=== PATIENT | female | born 2005 | race Two or more races ===

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

== ENCOUNTER 2023-01-21 00:44 | Emergency (ER) | payer OTHER, SELFPAY ==
[2023-01-21 00:47] VITALS: BP 137/93; PULSE 75; RESP 20; TEMP 36.9; O2SAT 100
--- NOTE | 2023-01-21 01:17 | ED.GENADULT ---
HPI - General Adult General Chief complaint: Dental/Oral Stated complaint: dental pain Time Seen by Provider: 01/21/23 01:10 History of Present Illness HPI narrative: Patient 88-year-old female presents the emergency department with chief complaint of dental pain. The patient reports that she has her lower wisdom teeth coming in and they have partially erupted. The patient reports that she has pain in her lower molar and the wisdom tooth area. Patient reports no purulent drainage denies fever denies trismus the patient has not seen a dentist Related Data Allergies Allergy/AdvReac Type Severity Reaction Status Date / Time amphetamine [From Adderall] Allergy Rash Verified 07/23/22 13:53 dextroamphetamine Allergy Rash Verified 07/23/22 13:53 [From Adderall] Review of Systems Review of Systems: A 10 system review of systems was completed on the patient and is negative except for what is stated in the HPI. Nursing and ancillary documentation was reviewed. PMFSH Past Medical History Medical History Epidermoid cyst of skin of back Social History Social History Smoking packs per day: 0.5 Smoking cigarettes per day: 10.0 Years smoked: 9 Smoking pack-years: 4.50 Smoking status: Current every day smoker Exam Narrative: GENERAL: Well-appearing, well-nourished, and in no acute distress. HEAD: Normocephalic, atraumatic. EYES: PERRLA and EOMI. ENT: Nares clear, no rhinorrhea or epistaxis. Mucous membranes moist. Impacted wisdom tooth present in the left lower molar. No fluctuance no crepitance there is tenderness to palpation in the gums NECK: Supple. CHEST: Clear to auscultation. No respiratory distress. HEART: Regular rate and rhythm. No murmur heard. Normal peripheral pulses. ABDOMEN: Soft, nontender, nondistended, normal active bowel sounds. EXTREMITIES: Normal range of motion. No edema. SKIN: Warm, dry, no rash. NEURO: No focal deficits. Alert and oriented x3. PSYCH: Normal mood and affect. Course Vital Signs Vital signs: Vital Signs Temperature 36.9 C 01/21/23 00:47 Pulse Rate 75 01/21/23 00:47 Respiratory Rate 20 01/21/23 00:47 Blood Pressure 137/93 H 01/21/23 00:47 Pulse Oximetry 100 01/21/23 00:47 Oxygen Delivery Room Air 01/21/23 00:47 Temperature 36.9 C 01/21/23 00:47 Pulse Rate 75 01/21/23 00:47 Respiratory Rate 20 01/21/23 00:47 Blood Pressure 137/93 H 01/21/23 00:47 Pulse Oximetry 100 01/21/23 00:47 Oxygen Delivery Room Air 01/21/23 00:47 Medical Decision Making MDM Narrative Medical decision making narrative: Differential diagnosis includes impacted wisdom tooth, abscess, cellulitis The patient was given a dose of penicillin VK in the emergency department and given a dose of [place] the patient be discharged home on Pen-Vee K and ibuprofen Vital Signs Vital Signs: Vital Signs Temperature 36.9 C 01/21/23 00:47 Pulse Rate 75 01/21/23 00:47 Respiratory Rate 20 01/21/23 00:47 Blood Pressure 137/93 H 01/21/23 00:47 Pulse Oximetry 100 01/21/23 00:47 Oxygen Delivery Room Air 01/21/23 00:47 Temperature 36.9 C 01/21/23 00:47 Pulse Rate 75 01/21/23 00:47 Respiratory Rate 20 01/21/23 00:47 Blood Pressure 137/93 H 01/21/23 00:47 Pulse Oximetry 100 01/21/23 00:47 Oxygen Delivery Room Air 01/21/23 00:47 Discharge Plan Discharge Clinical Impression: Toothache, Dental abscess Patient Disposition: Home, Self-Care Condition: Stable Instructions: Antibiotic Form, Dental Abscess (ED), Toothache (ED) Prescriptions: New ibuprofen 800 mg tablet 800 mg PO TID PRN (Reason: pain) Qty: 30 0RF penicillin V potassium 500 mg tablet 500 mg PO Q8H 10 Days Qty: 30 0RF No Action loratadine 10 mg tablet 10 mg PO DAILY Qty: 30 0RF amoxicillin
[2023-01-21] MEDS: HYDROcodone/acetaminophen (*CRX) 5-325 MG TABLET 1 TAB PO (02:08)
[2023-01-21] MEDS: PENICILLIN V POTASSIUM 250 MG TABLET 500 MG PO (02:09)
[2023-01-21 02:12] VITALS: BP 135/85; PULSE 72; RESP 16; O2SAT 100
== END 2023-01-21 02:15 | disposition home or self-care (01) ==
PROVIDERS: Emergency Provider Emergency Medicine; PCP Pediatrics
DX: K04.7 Periapical abscess without sinus (principal); F17.210 Nicotine dependence, cigarettes, uncomplicated
CPT/HCPCS: 99283; A9270

== ENCOUNTER 2023-07-01 18:34 | Emergency (ER) | payer OTHER, SELFPAY ==
[2023-07-01 18:41] VITALS: BP 125/64; PULSE 86; RESP 16; TEMP 36.7; O2SAT 100
--- NOTE | 2023-07-01 18:42 | ED.GENADULT ---
HPI - General Adult General Chief complaint: Upper Respiratory Infection Stated complaint: Right Ear Pain Source: patient, RN notes reviewed and old records reviewed Mode of arrival: ambulatory Limitations: no limitations History of Present Illness HPI narrative: 17-year-old female presents to [facility] with complaints of right ear pain and sore throat this started approximately 5 days ago. Patient taking [id number] medications without relief. Patient states was seen here recently and diagnosed with otitis externa. Related Data Allergies Allergy/AdvReac Type Severity Reaction Status Date / Time amphetamine [From Adderall] Allergy Rash Verified 07/23/22 13:53 dextroamphetamine Allergy Rash Verified 07/23/22 13:53 [From Adderall] Review of Systems Constitutional: Constitutional: Reports no additional constitutional complaints, Denies body ache(s), Denies chills, Denies fatigue, Denies fever(s) and Denies headache(s) Eyes: Eyes: Reports no additional eye complaints and Denies blurry vision ENT: Reports system reviewed and no additional complaints, except as documented, Denies vertigo, Denies dizziness, Denies ear discharge, Reports otalgia, Denies facial pain, Denies headache(s), Denies nasal congestion, Denies nasal discharge, Denies sinus pain, Denies sinus pressure and Reports sore throat Cardiovascular: Cardiovascular: Reports no additional cardiovascular complaints, Denies chest pain, Denies chest pain at rest, Denies rapid heart rate and Denies dyspnea Respiratory: Respiratory: Reports no additional respiratory complaints, Denies chest congestion, Denies cough, Denies pain on inspiration, Denies pain with cough and Denies dyspnea Gastrointestinal: Gastrointestinal: Denies abdominal pain, Denies diarrhea, Denies nausea and Denies vomiting Integumentary/Breasts: Skin/Breast: Denies rash Neurologic: Reports system reviewed and no additional complaints, except as documented, Denies vertigo, Denies dizziness and Denies headache(s) Endocrine: Endocrine: Denies fatigue PMF Past Medical History Medical History Epidermoid cyst of skin of back Social History Social History Smoking packs per day: 0.5 Smoking cigarettes per day: 10.0 Years smoked: 9 Smoking pack-years: 4.50 Smoking status: Current every day smoker Comments At the time of my signature, I reviewed and agree with the nursing past medical, surgical, social, and family history. There is no relevant family history pertinent to the patient complaint. Exam Const: General: cooperative, healthy appearing, no acute distress and well nourished Nutritional Appearance: well nourished Orientation/consciousness: patient oriented x3 Limitations: no limitations HENMT: Head: normal to inspection and normocephalic Ears: external ears normal, mastoids normal, Abnormal EAC present erythema on the right, edema on the right and EAC tenderness on the right and TM abnormal bulging on the right and erythematous on the right Face/Nose/Sinus: normal facial exam Face and sinus: normal facial exam Mouth: Yes Normal oral and palatal mucosa present, Yes oropharynx normal and Yes moist mucous membranes Throat: tonsils normal, uvula midline, normal tonsils, no peritonsillar masses, posterior oropharynx abnormal erythema, no postnasal drainage and no uvular edema Eyes: General: appearance normal, both eyes and all related structures Sclera: sclerae normal Pupils: Equal, round and reactive pupils present Resp: Effort & Inspection: normal respiratory effort, able to speak in complete sentences, no audible wheezes, no cough, no respiratory distress and no retractions Skin: General skin exam: normal color and no rashes or lesions noted Neuro: General: patient oriented x3 Cranial nerves: Yes Equal, round and reactive pupils present Psych: Appearance: conner
[2023-07-01 18:51] VITALS: BP 125/64; PULSE 86; RESP 16; TEMP 36.7; O2SAT 100
== END 2023-07-01 18:55 | disposition home or self-care (01) ==
PROVIDERS: Emergency Provider Registered Nurse; PCP Nurse Practitioner Family
DX: H60.311 Diffuse otitis externa, right ear (principal); H66.001 Acute suppurative otitis media without spontaneous rupture of ear drum, right ear; F17.210 Nicotine dependence, cigarettes, uncomplicated
CPT/HCPCS: 99213; G0463

== ENCOUNTER 2023-09-21 02:29 | Emergency (ER) | payer OTHER, SELFPAY ==
--- NOTE | ~2023-09-21 | XR_ITS ---
AP view of the pelvis and AP and lateral views of the right hip Clinical history: Pain Findings: No acute fracture or dislocation is seen. Osseous alignment is anatomic. Bilateral hip and SI joint spaces are preserved. Soft tissues are unremarkable. Impression: No significant abnormality is seen. Reviewed, dictated and finalized at [facility]. Impression: No significant abnormality is seen.
[2023-09-21 02:39] VITALS: BP 143/81; PULSE 97; RESP 15; TEMP 36.5; O2SAT 99
--- NOTE | 2023-09-21 03:28 | ED.LOWEXIN ---
HPI - Extremity Injury (Lower) General Chief Complaint: Extremity Injury, Lower Stated Complaint: sharp abd pain / groin pain Time Seen by Provider: 09/21/23 02:46 Source: patient Limitations: no limitations History of Present Illness HPI Narrative: Patient is a 18-year-old female presents to the emergency department complaining of right hip pain. Patient points to the approximately her ASIS on the right side referring to location of the pain, notes it has been going on for past approximately 2 weeks, is really only present after a long day of work insert to feel toward the end of it when she is on her feet all day and walking around. Patient denies any history is pain in the past. Patient has not been taking anything for the pain. Patient denies any overt injuries. Patient feels like the pain is worse when she stretches and extension fashion or strain to stand up. Patient denies numbness, shooting pain, weakness, urinary incontinence, stool incontinence, urinary discomfort, has no bleeding, vaginal discharge, abdominal pain, nausea, vomiting, back pain. Related Data Allergies Allergy/AdvReac Type Severity Reaction Status Date / Time amphetamine [From Adderall] Allergy Rash Verified 07/23/22 13:53 dextroamphetamine Allergy Rash Verified 07/23/22 13:53 [From Adderall] Review of Systems Review of Systems: A 10 system review of systems was completed on the patient and is negative except for what is stated in the HPI. Nursing and ancillary documentation was reviewed. [facility] Past Medical History Medical History Epidermoid cyst of skin of back Social History Social History Smoking packs per day: 0.5 Smoking cigarettes per day: 10.0 Years smoked: 9 Smoking pack-years: 4.50 Smoking status: Current every day smoker Comments At time of signature, I have reviewed and agree with nursing past medical, surgical, social and family history unless otherwise noted. Please see the nursing chart for further information. There is no relevant family history pertinent to the presenting complaint. Exam Narrative: CONST: No acute distress. Well nourished. HENMT: Head is normocephalic and atraumatic. Moist mucous membranes. No posterior oropharynx erythema. EYES: No conjunctival icterus, injection, or pallor. PERRL. NECK: No meningeal signs. RESP: Able to speak in full sentences. Normal respiratory effort. CTAB. CARDIO: Regular rate. Regular rhythm. 2+ DP and radial pulses bilaterally. GI: Nondistended. No tenderness to palpation. Soft. : No CVA tenderness to palpation. SKIN: No rashes or lesions noted on exposed skin. NEURO: Oriented x3. Moves all extremities. EXTREM/MSK/BACK: No pedal edema. Mild tenderness to palpation of the right ASIS without any palpable deformities. Patient is uncomfortable with resistance to hip flexion it appears to be most localized to the tendinous insertion sites of the quadriceps muscles. No overlying skin changes. Compartments are soft. No palpable masses or hernias or lymphadenopathy in the right inguinal region and right proximal leg. Stable gait with active range of motion intact. No midline vertebral tenderness to palpation or step-offs. PSYCH: Normal affect. Course Vital Signs Vital signs: Vital Signs Temperature 97.7 F 09/21/23 02:39 Pulse Rate 97 09/21/23 02:39 Respiratory Rate 15 09/21/23 02:39 Blood Pressure 143/81 H 09/21/23 02:39 Pulse Oximetry 99 09/21/23 02:39 Oxygen Delivery Room Air 09/21/23 02:39 Temperature 97.7 F 09/21/23 02:39 Pulse Rate 82 09/21/23 04:12 Respiratory Rate 16 09/21/23 04:12 Blood Pressure 131/90 09/21/23 04:12 Pulse Oximetry 98 09/21/23 04:12 Oxygen Delivery Room Air 09/21/23 02:39 MDM - Extremity Injury (Lower) MDM Narrative Medical decision making narrative: Patient pres
[2023-09-21 03:44] LABS: Basophils Percent Auto 0.4 % (0.2-1.2); Eosinophils Absolute Auto 0.2 K/mm3 (0-0.3); Eosinophils Percent Auto 1.8 % (0-4.4); Hematocrit 39.1 % (37.0-47.0); Immature Granulocyte Absolute 0.02 K/mm3 (0.00-0.031); Immature Granulocyte Percent A 0.2 % (0-0.5); Lymphocytes Absolute Auto 4.28 K/mm3 (0.9-3.2); Lymphocytes Percent Auto 43.6 % (18.3-44.2); Mean Corpuscular HGB Conc 33.2 g/dl (32-36); Mean Corpuscular Hemoglobin 31.2 pg (26-34); Mean Corpuscular Volume 93.8 fl (80-100); Monocytes Absolute Auto 0.6 K/mm3 (0.1-0.6); Monocytes Percent Auto 5.7 % (2.6-8.5); Neutrophils Absolute Auto 4.7 K/mm3 (1.3-6.7); Neutrophils Percent Auto 48.3 % (45.5-73.1); Platelet Count Result 277 k/mm3 (150-375); Red Blood Count 4.17 M/mm3 (4.2-5.4); Red Cell Distribution Width 12.9 % (11.5-14.5); White Blood Count 9.8 K/mm3 (4.5-10.0)
[2023-09-21 03:46] LABS: Appearance Urine Clear (Clear); Bilirubin Urine Negative (Negative); Blood Urine Negative (Negative); Color Urine Yellow (Yellow); Glucose Urine UA Negative (Negative); Ketones Urine Negative (Negative); Leukocyte Esterase Ur Negative LEU/UL (Negative); Nitrate Urine Negative (Negative); Protein Urine Negative (Negative); Specific Grav Ur 1.029 (1.001-1.035)
[2023-09-21 03:47] LABS: Add Urine Microscopic? NO
[2023-09-21] MEDS: KETOROLAC 15 MG/ML VIAL (*BKC) IV PUSH (03:49)
[2023-09-21] MEDS: CYCLOBENZAPRINE HCL 10 MG TABLET PO (03:49)
[2023-09-21 03:55] VITALS: BP 120/75; PULSE 83; RESP 16; O2SAT 100
[2023-09-21 03:55] LABS: Lactic Acid Reflex 0.5 mmol/L (0.7-2.0)
[2023-09-21 03:59] LABS: Alanine Aminotransferase 20 U/L (6-35); Albumin Level 4.5 g/dL (3.5-5.1); Alkaline Phosphatase 69 U/L (38-126); Anion Gap 6 mmol/L (4-12); Aspartate Amino Transferase 24 U/L (14-36); Bilirubin,Total 0.3 mg/dL (0.2-1.3); Blood Urea Nitrogen 19 mg/dL (7-17); CRP < 0.5 mg/dL (<1.0); Carbon Dioxide 28 mmol/L (22-30); Chloride 106 mmol/L (98-107); Estimated CRCL calculation 103 ml/min; Estimated Glomerular Filt Rate > 60; Glucose 98 mg/dL (65-110); Sodium 140 mmol/L (137-145)
[2023-09-21 04:12] VITALS: BP 131/90; PULSE 82; RESP 16; O2SAT 98
== END 2023-09-21 04:14 | disposition home or self-care (01) ==
PROVIDERS: Emergency Provider Student in an Organized Health Care Education/Training Program; PCP Nurse Practitioner Family
DX: S76.011A Strain of muscle, fascia and tendon of right hip, initial encounter (principal); F17.210 Nicotine dependence, cigarettes, uncomplicated; X58.XXXA Exposure to other specified factors, initial encounter
CPT/HCPCS: 36415; 73502; 80053; 81003; 81025; 83605; 85025; 86140; 96374; 99284; A9270; J1885

== ENCOUNTER 2023-11-11 17:33 | Emergency (ER) | payer BC, SELFPAY ==
--- NOTE | ~2023-11-11 | CT_ITS ---
CT abdomen pelvis w con Ordering provider: Paul Gonzales APRN History: 18 years Female with . RLQ pain . Comparison: None. Technique: CT abdomen and pelvis with IV and without oral contrast. Automated exposure control and it erative reconstruction technique were employed. The dose-length product was 949.94 mGy-cm. 100 ML Omn ipaque 350 was given IV. Findings: VISUALIZED LOWER CHEST: Normal. UPPER ABDOMINAL ORGANS: Liver: Normal. Gallbladder: Contracted. Spleen: Normal. Stomach/duodenum: Normal. Pancreas: Normal. Adrenals: Normal. Kidneys: Normal. PELVIC ORGANS: The bladder is normal. Uterus: Normal. BOWEL AND MESENTERY: Colon: No evidence of diverticulitis. Normal appendix. Small Bowel: Normal. No obstruction. Peritoneum/mesentery: No free air or free fluid. No mesenteric lymphadenopathy. RETROPERITONEUM: Normal aorta. No retroperitoneal lymphadenopathy. MUSCULOSKELETAL: Superficial soft tissues: The superficial soft tissues are normal. Bones: Normal spine. IMPRESSION: 1. No evidence of appendicitis, diverticulitis or intestinal obstruction. No renal stones. Reviewed, dictated and finalized at location [facility]. IMPRESSION: 1. No evidence of appendicitis, diverticulitis or intestinal obstruction. No r enal stones.
--- NOTE | 2023-11-11 17:34 | ED.ABDPAIN ---
HPI - Abdominal Pain General Chief Complaint: Abdominal Pain <Paul Gonzales APRN - Last Filed: 11/11/23 17:35> Stated Complaint: right abd pain <Paul Gonzales APRN - Last Filed: 11/11/23 17:35> Time Seen by Provider: 11/11/23 19:30 <Paul Gonzales APRN - Last Filed: 11/11/23 17:35> Focused HPI: 18-year-old female no medical problems presents to the emergency room for evaluation of right lower quadrant pain it has been present for 2 months. Of pain is associated with occasional dysuria, urinary frequency and urgency. States pain radiates into her right thigh and around into her back. GENERAL: Well-appearing, well-nourished, and in no acute distress. HEAD: Normocephalic, atraumatic. CHEST: Clear to auscultation. No respiratory distress. HEART: Regular rate and rhythm. NEURO: Alert and oriented x3. Patient screened in triage and initial orders placed. Additional care and disposition to be based upon diagnostic testing and treatment. <Paul Gonzales APRN - Last Filed: 11/11/23 17:35> History of Present Illness HPI narrative: patient is a 18-year-old female who presents emergency department with chief complaint of right hip pain. Patient reports that she has had some discomfort when urinates is concerned she may have UTI patient denies fever reports that the pain is worse with ambulation improves rest. <Drew Ferro MD - Last Filed: 11/11/23 21:50> Related Data Allergies/Adverse Reactions: Allergies Allergy/AdvReac Type Severity Reaction Status Date / Time amphetamine [From Adderall] Allergy Rash Verified 11/11/23 17:33 dextroamphetamine Allergy Rash Verified 11/11/23 17:33 [From Adderall] <Paul Gonzales APRN - Last Filed: 11/11/23 17:35> Review of Systems Review of Systems: A 10 system review of systems was completed on the patient and is negative except for what is stated in the HPI. Nursing and ancillary documentation was reviewed. <Drew Ferro MD - Last Filed: 11/11/23 21:50> PMFSH Past Medical History Medical History: Medical History Epidermoid cyst of skin of back <Paul Gonzales APRN - Last Filed: 11/11/23 17:35> Social History Social History: Social History Smoking packs per day: 0.5 Smoking cigarettes per day: 10.0 Years smoked: 9 Smoking pack-years: 4.50 Smoking status: Current every day smoker <Paul Gonzales APRN - Last Filed: 11/11/23 17:35> Exam Narrative: GENERAL: Well-appearing, well-nourished, and in no acute distress. HEAD: Normocephalic, atraumatic. EYES: PERRLA and EOMI. ENT: Nares clear, no rhinorrhea or epistaxis. Mucous membranes moist. NECK: Supple. CHEST: Clear to auscultation. No respiratory distress. HEART: Regular rate and rhythm. No murmur heard. Normal peripheral pulses. ABDOMEN: Soft, nontender, nondistended, normal active bowel sounds. EXTREMITIES: Normal range of motion. No edema. SKIN: Warm, dry, no rash. NEURO: No focal deficits. Alert and oriented x3. PSYCH: Normal mood and affect. <Drew Ferro MD - Last Filed: 11/11/23 21:50> Course Vital Signs Vital signs: Vital Signs Temperature 36.3 C L 11/11/23 18:12 Pulse Rate 90 11/11/23 18:12 Respiratory Rate 20 11/11/23 18:12 Blood Pressure 120/66 11/11/23 18:12 Pulse Oximetry 100 11/11/23 18:12 Oxygen Delivery Room Air 11/11/23 18:12 Temperature 36.3 C L 11/11/23 18:12 Pulse Rate 80 11/11/23 21:13 Respiratory Rate 16 11/11/23 21:13 Blood Pressure 121/67 11/11/23 21:13 Pulse Oximetry 100 11/11/23 21:13 Oxygen Delivery Room Air 11/11/23 18:12 <Paul Gonzales APRN - Last Filed: 11/11/23 17:35> Vital Signs Temperature 36.3 C L 11/11/23 18:12 Pulse Rate 90 11/11/23 18:12 Respiratory Rate 20
[2023-11-11 18:12] VITALS: BP 120/66; PULSE 90; RESP 20; TEMP 36.3; O2SAT 100
[2023-11-11 18:20] LABS: Appearance Urine Clear (Clear); Bilirubin Urine Negative (Negative); Blood Urine Negative (Negative); Color Urine Yellow (Yellow); Glucose Urine UA Negative (Negative); Ketones Urine Negative (Negative); Leukocyte Esterase Ur Negative LEU/UL (Negative); Nitrate Urine Negative (Negative); Protein Urine Negative (Negative); Specific Grav Ur 1.017 (1.001-1.035); Urobilinogen Urine 0.2 mg/dL (<2.0); pH Urine 7.5 (5.0-9.0)
[2023-11-11 18:33] LABS: Add Urine Microscopic? NO
[2023-11-11 18:56] LABS: Basophils Percent Auto 0.5 % (0.2-1.2); Eosinophils Absolute Auto 0.2 K/mm3 (0-0.3); Hematocrit 41.1 % (37.0-47.0); Hemoglobin 13.8 g/dL (12.0-15.0); Immature Granulocyte Absolute 0.01 K/mm3 (0.00-0.031); Immature Granulocyte Percent A 0.1 % (0-0.5); Lymphocytes Absolute Auto 2.72 K/mm3 (0.9-3.2); Lymphocytes Percent Auto 35.9 % (18.3-44.2); Mean Corpuscular HGB Conc 33.6 g/dl (32-36); Mean Corpuscular Hemoglobin 31.8 pg (26-34); Mean Corpuscular Volume 94.7 fl (80-100); Mean Platelet Volume 8.9 fl (7.4-10.4); Monocytes Absolute Auto 0.5 K/mm3 (0.1-0.6); Monocytes Percent Auto 5.9 % (2.6-8.5); Neutrophils Absolute Auto 4.2 K/mm3 (1.3-6.7); Neutrophils Percent Auto 55.6 % (45.5-73.1); Platelet Count Result 279 k/mm3 (150-375); Red Blood Count 4.34 M/mm3 (4.2-5.4); Red Cell Distribution Width 12.7 % (11.5-14.5); White Blood Count 7.6 K/mm3 (4.5-10.0)
[2023-11-11 19:07] LABS: Alanine Aminotransferase 21 U/L (6-35); Albumin Level 4.7 g/dL (3.5-5.1); Alkaline Phosphatase 68 U/L (38-126); Anion Gap 9 mmol/L (4-12); Aspartate Amino Transferase 26 U/L (14-36); Bilirubin,Total 0.4 mg/dL (0.2-1.3); Blood Urea Nitrogen 13 mg/dL (7-17); Calcium 9.3 mg/dL (8.4-10.2); Carbon Dioxide 29 mmol/L (22-30); Chloride 100 mmol/L (98-107); Estimated CRCL calculation 102 ml/min; Estimated Glomerular Filt Rate > 60; Glucose 97 mg/dL (65-110); Sodium 138 mmol/L (137-145)
[2023-11-11 21:13] VITALS: BP 121/67; PULSE 80; RESP 16; O2SAT 100
--- NOTE | 2023-11-11 21:14 | PC.NURSE ---
pt holding vape in hand when this RN walked in. this RN told the pt she cannot vape inside the hospital
== END 2023-11-11 21:59 | disposition home or self-care (01) ==
PROVIDERS: Nurse Practitioner Family; Emergency Provider Emergency Medicine; PCP Nurse Practitioner Family
DX: R10.31 Right lower quadrant pain (principal); F17.210 Nicotine dependence, cigarettes, uncomplicated
CPT/HCPCS: 36415; 74177; 80053; 81003; 81025; 85025; 99284; Q9967

== ENCOUNTER 2024-04-14 13:28 | Emergency (ER) | payer BC, SELFPAY ==
[2024-04-14 13:55] VITALS: BP 155/83; PULSE 108; RESP 16; TEMP 37.1; O2SAT 100
--- NOTE | 2024-04-14 14:44 | ED_ITS ---
HPI - URI/Sore Throat General Chief Complaint: Upper Respiratory Infection Stated Complaint: throat Time Seen by Provider: 04/14/24 14:44 Source: patient, RN notes reviewed and old records reviewed Mode of arrival: ambulatory Limitations: no limitations History of Present Illness HPI Narrative: 18-year-old female presents to [facility] complaints sore throat for 3 days. No treatment prior to arrival Related Data Allergies Allergy/AdvReac Type Severity Reaction Status Date / Time amphetamine (From Adderall) Allergy Rash Verified 11/11/23 17:33 dextroamphetamine (From Allergy Rash Verified 11/11/23 17:33 Adderall) Review of Systems Review of Systems: All systems reviewed & are unremarkable except as noted in HPI and below Constitutional: Constitutional: Reports no additional constitutional complaints ENT: Reports as per HPI and Reports sore throat Cardiovascular: Cardiovascular: Reports no additional cardiovascular complaints, Denies chest pain and Denies dyspnea Respiratory: Respiratory: Reports no additional respiratory complaints, Denies chest congestion, Denies cough and Denies dyspnea Musculoskeletal: Musculoskeletal: Reports no additional musculoskeletal complaints Integumentary/Breasts: Skin/Breast: Reports system reviewed and no additional complaints, except as docu PMFSH Past Medical History Medical History Epidermoid cyst of skin of back Social History Social History Smoking packs per day: 0.5 Smoking cigarettes per day: 10.0 Years smoked: 9 Smoking pack-years: 4.50 Smoking status: Current every day smoker Comments At the time of my signature, I reviewed and agree with the nursing past medical, surgical, social, and family history. There is no relevant family history pertinent to the patient complaint. Exam Const: General: cooperative, healthy appearing, comfortable, no acute distress, well developed, alert and well nourished Nutritional Appearance: well nourished Orientation/consciousness: patient oriented x3 Limitations: no limitations HENMT: Head: normal to inspection Ears: hearing grossly normal bilaterally, external ears normal, TM's normal bilaterally, EAC's normal, mastoids normal and no periauricular adenopathy Face/Nose/Sinus: normal facial exam and face symmetric Face and sinus: normal facial exam and face symmetric Mouth: Yes Normal oral and palatal mucosa present, Yes lip normal, Yes tongue normal and Yes moist mucous membranes Throat: posterior oropharynx normal, uvula midline, postnasal drainage and no uvular edema Eyes: General: appearance normal, both eyes and all related structures Neck: Neck: normal visual inspection, full ROM, no lymphadenopathy and no meningeal signs Chest: Chest palpation & inspection: normal inspection of the chest Resp: Effort & Inspection: normal respiratory effort and able to speak in complete sentences Auscultation: clear to auscultation bilaterally, no crackles, no rales, no rhonchi and no wheezes Cardio: Rate: regular rate Skin: General skin exam: normal color and no rashes or lesions noted Neuro: General: patient oriented x3, gait normal, moves all extremities and no meningeal signs Cognition (Neuro): normal cognition Speech: normal speech Gait exam (Neuro): Normal gait present Extrem: General: normal to inspection, full ROM, capillary refill normal and normal gait Psych: Appearance: grossly normal and well kempt Mental Status: mental status grossly normal Speech and movement: Normal speech and movement present and Clear speech present Affect: normal affect Attitude: cooperative Course Course Level of Care: Express Care Visit Vital Signs Vital signs: Vital Signs Temperature 98.8 F 04/14/24 13:55 Pulse Rate 108 H 04/14/24 13:55 Respiratory Rate 16 04/14/24 13:55 Blood Pressure 155/83 H 04/14/24 13:55 Pulse Oximetry 100 04/14/24 13:55 Oxygen Delivery Room Air 04/14/24 13:55 Temperature 98.8 F 04/14/24 13:55 Pulse Rate 108 H 04/14/24 13:55 Respiratory Rate 16 04/14/24 13:55 Blood Pressure 155/83 H 04/14/24 13:55 Pulse Oximetry 100 04/14/24 13:55 Oxygen Delivery Room Air 04/14/24 13:55 Reviewed MDM - URI/Sore Throat MDM Narrative Medical decision making narrative: Patient sitting comfortably in exam room. Nontoxic, vitals stable. Patient presents with 2 day history of sore throat. Flu, COVID, strep were negative. Patient appropriate for outpatient treatment with follow-up Discharge instructions reviewed with patient, as well as provided in writing per nursing staff. The instructions also include specific and strict return/GO TO THE ER as well as f/u information. All questions have been answered, and the patient deny any further questions with discharge and discharge plan. Some parts of this dictation were generated by voice recognition software and may contain typographical and/or grammatical inaccuracies. Differential Diagnosis Differential diagnosis: Likely upper respiratory infection, otitis media, sinusitis, viral infection, bronchitis, influenza and pharyngitis Lab Data Labs: Lab Results 04/14/24 Range/Units 15:05 POC Influenza A Ag Negative (Negative) POC Influenza B Ag Negative (Negative) POC SARS CoV-2 Ag Negative (Negative) POC Grp A Strep Screen Negative (Negative) Reviewed Critical Care Time Critical Care Time Critical Care Time: No Discharge Plan Discharge Clinical Impression: Fluid level behind tympanic membrane of both ears Upper respiratory infection Qualifiers: URI type: unspecified viral URI Qualified Code(s): J06.9 - Acute upper respiratory infection, unspecified Patient Disposition: Home, Self-Care Condition: Stable Instructions: Upper Respiratory Infection (ED), Fluid In The Ear (Serous Otitis Media) (ED) Additional Instructions: Your rapid strep swab was negative today at [facility]. A throat culture will be sent to the laboratory for further testing. If the test is positive, you will receive a phone call within 48 hours and an appropriate antibiotic will be initiated at that time. Your rapid COVID test were negative Your rapid flu test was negative Your symptoms are likely due to a viral illness, which is not treated with antibiotics. Typically viral infections last 7-10 days, can linger for couple of weeks. It is very important to treat your symptoms. Drink plenty of water, Gatorade, Pedialyte, ice pops or Jell-O. -Alternate Tylenol and Motrin per package directions for fever or pain. You can alternate every 4 hours -Antihistamine medication such as Benadryl at night and Zyrtec/Claritin/Makenzie during the day can help improve symptoms. -doing daily nasal irrigations can help relieve pressure your sinuses. Things like a Neti pot -Use Flonase twice a day for 5 days then daily to help reduce the inflammation and dry up your sinuses. -You can also use Mucinex. Be sure to drink plenty of water with this medication at least 8 ounces with every dose and it is important to drink 8 to 1 0 glasses of water per day. Water is a natural decongestant -Eat and drink things that are easy to swallow, like tea or soup, or popsicles. -Oral rinses such as: Salt water gargles and/or may use topical anesthetic (eg. Chloraseptic spray) or lozenges to relieve dryness or throat pain). -Frequent hand washing or hand log snaker is one of the best ways to prevent spread of infection. -Using a vaporizer or humidifier at night will also help thin secretions and help with coughing up phlegm. -Follow up with primary care provider in 7-10 days if condition is not improving - For new or worsening symptoms go directly to the nearest ER Patient Language: Albanian Prescriptions: New fluticasone propionate [Flonase Allergy Relief] 50 mcg/actuation spray,suspens ion 2 spray intranasal DAILY Qty: 16 0RF Rx Instructions: administer into each nostril ibuprofen 600 mg tablet 600 mg PO TID PRN (Reason: fever or pain) Qty: 30 0RF Follow-up/Referrals: [place],Denise Suazo APN [Primary Care Provider] - 2 Weeks ([facility] care follow up ) Stand Alone Forms: Work/School Release IP Time of Disposition: 15:03
[2024-04-14 15:07] LABS: EDCOVIDSCREEN Negative (Negative); EDINFLUASCREEN Negative (Negative); EDINFLUBSCREEN Negative (Negative); EDSTREPNEGPOS1 Negative (Negative)
== END 2024-04-14 15:12 | disposition home or self-care (01) ==
PROVIDERS: Emergency Provider Nurse Practitioner; PCP Nurse Practitioner Family
DX: H73.893 Other specified disorders of tympanic membrane, bilateral (principal); J06.9 Acute upper respiratory infection, unspecified; Z20.822 Contact with and (suspected) exposure to COVID-19; F17.210 Nicotine dependence, cigarettes, uncomplicated
CPT/HCPCS: 87081; 87426; 87804; 87880; 99213; G0463

== ENCOUNTER 2024-07-02 10:41 | Emergency (ER) | payer BC, SELFPAY ==
--- OUTSIDE RECORDS SUMMARY | 2024-07-02 10:44 | XMS_ITS | Referral Summary ---
Author Organization [facility] Address [address] [place] [address] Care Team Providers Care Bargain Table Clerk Name Role Phone Denise Callahan NP Primary Care Provider [phone] Encounters Date Type Department Care Team Description 06/01/2024 10:45 AM HYGIENE TEACHER - 06/01/2024 11:59 PM HYGIENE TEACHER Hospital Encounter [facility] [address] [place] [address] Excessive and frequent menstruation with regular cycle Discharge Disposition: Discharge to home or self care from Last 3 Months Allergies Active Allergy Reactions Criticality Noted Date Comments Dextroamphetamine-Amphetamine Anxiety Low 2022 Medications FLUoxetine (FLUoxetine) 10 mg capsule Take 10 mg by mouth. Active azithromycin (ZITHROMAX) 250 mg tablet Take 1 tablet (250 mg total) by mouth daily. Take first 2 tablets together, then 1 every day until finished. 6 tablet 8 Active benzonatate (TESSALON) 100 mg capsuleIndicati ons:Cough Take 1 capsule (100 mg total) by mouth every 8 (eight) hours. 21 capsule 8 Active ibuprofen (ADVIL,MOTRIN) 600 mg tablet Take 1 tablet (600 mg total) by mouth 3 (three) times a day Take with food. 30 tablet 9 Active diphenhydrAMINE (diphenhydrAMIN E) 25 mg capsule Take 1 tablet/capsule (25 mg total) by mouth every 6 (six) hours as needed for itching 30 capsule 9 Active predniSONE (DELTASONE) 10 mg tablet Take 6 tablets oral daily for 2 days then 4 tablets daily for 2 days then 3 tablets daily for 2 days then 2 tablets daily for 2 days then 1 tablet daily for 2 days then stop. 32 tablet 2 Active cephalexin (KEFLEX) 500 mg capsule Take 1 capsule (500 mg total) by mouth 4 (four) times a day 40 capsule 3 Active neomycin-polymy vera-HC (CORTISPORIN) 3.5-10,000-1 mg/mL-unit/mL-% otic suspension Administer 4 drops into the right ear 3 (three) times a day 10 mL 3 Active Active Problems Problem Noted Date Diagnosed Date Numbness and tingling of hand 06/05/2023 Social History Tobacco Use Types Packs/Day Years Used Date Smoking Tobacco: Every Day Cigarettes Smokeless Tobacco: Never Alcohol Use Standard Drinks/Week Comments Never 0 (1 standard drink = 0.6 oz pur e alcohol) AUDIT-C Answer Date Recorded Q1: How often do you have a drink containing alc ohol? Never 10/22/2019 Average Number of Drinks Not on file 020 Frequency of Binge Drinking Not on file 09/25 Comments No Sex and Gender Information Value Date Recorded Sex Assigned at Not on file Legal Sex Female 5:58 AM HYGIENE TEACHER Gender Identity Female 11/10/2023 7:36 PM CDT Sexual Orientation Something else 11/10/2023 7: 36 PM CDT Last Filed Vital Signs Vital Sign Reading Time Taken Comments Blood Pressure 137/77 07/24/2022 5:32 AM CDT Pulse 83 07/24/2022 5:32 AM CDT Temperature 36.7 C (98.1 F) 07/24/2022 5:32 AM CDT Respiratory Rate 18 07/24/2022 5:32 AM CDT Oxygen Saturation 100% 07/24/2022 5:32 AM CDT Inhaled Oxygen Concentration - - Weight 86.2 kg (190 lb 0.6 oz) 07/24/2022 5:32 A M CDT Height 165.1 cm (5' 5 ) 07/24/2022 5:32 AM CDT Body Mass Index 31.62 07/24/2022 5:32 AM CDT Plan of Treatment Not on file Procedures Procedure Name Priority Date/Time Associated Diagnosis Comments US PELVIS W ENDOVAGINAL Schedule Routine, Read Routine (OP Routine) 06/01/2024 12:12 PM HYGIENE TEACHER Excessive and frequent menstruation with regular cycle from Last 3 Months Results * US Pelvis W Endovaginal (06/01/2024 12:12 PM HYGIENE TEACHER) Anatomical Region Laterality Modality Pelvis N/A Ultrasound 06/05/2024 10:2 6 AM HYGIENE TEACHER Narrative 06/05/2024 10:27 AM HYGIENE TEACHER EXAM DESCRIPTION: US PELVIS W ENDOVAGINAL REASON FOR STUDY: N92.0, excessive and frequent menstruation. TECHNIQUE: Grayscale ultrasound of the pelvic contents was performed with transabdominal and transvaginal transducer. COMPARISON: None. FINDINGS: UTERUS: The uterus is anteverted. The uterus is homogenous in echotexture and measures 7.4 x 4.1 x 3.5 cm. ENDOMETRIUM: The endometrium measures 0.7 cm in thickness. RIGHT OVARY: The right ovary measures 2.6 x 2.2 x 3.6 cm. There is documentation of color Doppler flow in the right ovary. The right ovary appears unremarkable. Several small peripheral follicles. LEFT OVARY: The left ovary measures 1.8 x 3.0 x 3.2 cm. There is documentation of color Doppler flow in the left ovary. The left ovary appears unremarkable. Several small peripheral follicles. PELVIC FLUID: There is no evidence of free fluid in the pelvis. OTHER: No other significant findings. IMPRESSION: No evidence of an acute abnormality. Several small peripheral follicles in the ovaries, polycystic ovarian morphology. Correlate for clinical symptoms of polycystic ovarian syndrome. THIS IS AN ELECTRONICALLY VERIFIED FINAL REPORT 06/05/2024 10:27 AM - Electronically signed by Bola Lyons M.D. CH: GLEN Report ID: [id number] Reading Location: [id number] Procedure Note Bola Lyons Jr., MD - 06/05/2024 EXAM DESCRIPTION: US PELVIS W ENDOVAGINAL REASON FOR STUDY: N92.0, excessive and frequent menstruation. TECHNIQUE: Grayscale ultrasound of the pelvic contents was performed with transabdominal and transvaginal transducer. COMPARISON: None. FINDINGS: UTERUS: The uterus is anteverted. The uterus is homogenous inechotexture and measures 7.4 x 4.1 x 3.5 cm. ENDOMETRIUM: The endometrium measures 0.7 cm in thickness. RIGHT OVARY: The right ovary measures 2.6 x 2.2 x 3.6 cm. There is documentation of color Doppler flow in the right ovary. The right ovary appears unremarkable. Several small peripheral follicles. LEFT OVARY: The left ovary measures 1.8 x 3.0 x 3.2 cm. There is documentation of color Doppler flow in the left ovary. The left ovaryappears unremarkable. Several small peripheral follicles. PELVIC FLUID: There is no evidence of free fluid in the pelvis. OTHER: No other significant findings. IMPRESSION: No evidence of an acute abnormality. Several small peripheral follicles in the ovaries, polycystic ovarian morphology. Correlate for clinical symptoms of polycystic ovariansyndrome. THIS IS AN ELECTRONICALLY VERIFIED FINAL REPORT 06/05/2024 10:27 AM - Electronically signed by Bola Lyons M.D. CH: GLEN Report ID: [id number] Reading Location: [place] [id number] Yenifer Jones NP IM US PROCEDURES Final Resul t from Last 3 Months Insurance [facility] [employer] [facility] MEDICAID [facility] AETNA [place] Care Teams Bargain Table Clerk Relationship Specialty Start Date End Date Callahan, Denise Noyola NP [address] [place] [address] PCP - General Nurse Practitioner 05/27/23
--- OUTSIDE RECORDS SUMMARY | 2024-07-02 10:44 | XMS_ITS | Data Portability ---
[facility] Address [address] [place] [address] Care Team Providers Care Emergency Communications Operator Name Role Phone MANJARREZ DENISE Primary Care Provider Assessment No assessment recorded. Plan of Treatment Reminders Order Date Submit Date Provider Last Modified By Organization Details Last Modified Time Details Appointments None recorded . Lab chlamydi a trachoma tis + neisseri a gonorrho eae + trichomo page vaginali s DNA panel, DEBO+prob e, unspecif ied specimen 2022 023 [facility], [address] [place] [address], [address], 07:14:52 vitamin D, 25-hydro xy, total, serum 2021 022 [facility], [address] [place] [address] 2, [place], [address], 15:07:51 food allergen panel, serum 2021 022 [facility], [address] [place] [address] 2, [place], [address], 16:08:11 C reactive protein, QN, serum or plasma 2021 022 [facility], [address] [facility], [facility] [[email or web address]] 2, [place], [address], 16:08:14 DONI (antinuc lear antibodi es) screen, serum 052021 [facility], [address] [facility], [place], [address], 16:08:12 erythroc yte sediment ation rate by danielergr en method 2021 [facility], [address] [facility], [address], [place], [address], 16:08:13 allergy panel, serum or plasma 2021 [facility], [address] [facility], [address], [place], [address], 16:08:09 TSH, ultra-se nsitive, serum 2021 [facility], [address], [address], [place], [address], 16:08:08 CMP, serum or plasma 2021 [facility], [address], [address], [place], [address], 16:08:05 lipid panel, serum 2021 [facility], [address], [address], [place], [address], 16:08:07 CBC 2021 [facility], [address], [address], [place], [address], 16:08:06 Referral None recorded . Procedures None recorded . Surgeries None recorded . Imaging US, pelvis, transabd ominal + transvag inal 2024 025 [facility], [address] [facility] , [place], [address], 5 12:20:59 electrom yogram + nerve conducti on study 2023 024 [facility]NN Laughlin [facility] Scheduling, [address] [facility] , [place], [address], 4 17:23:08 Medication Orders naproxen 500 mg tablet,d elayed release 2023 024 [id number], [address], [place], [address], 4 12:19:18 Bactrim DS 800 mg-160 mg tablet 2023 025 [id number], [address], [place], [address], 5 10:50:43 naproxen 500 mg tablet,d elayed release 2022 023 [email or web address] #[id number], [address], [place], [address], 4 12:10:02 triamcin olone acetonid e 0.1 % topical cream 2021 022 [email or web address] Not available 3 14:20:13 predniso ne 10 mg tablet 2021 022 [email or web address] Not available 3 14:20:08 Patient TargetsNo targets recorded. Patient Instructions Encounter Date Encounter Id Patient Instructions Last Modified By Organization Details Last Modified Time 09/23/2021 [id number] A healthy lifestyle: care instructions Not available 09/23/2021 14:54:20 Learning About Benefits of Quitting Smoking Not available 09/23/2021 14:54:19 tobacco cessation Not available 09/23/2021 14:54:19 Wash with mild soap such as Dove or Ivory, pat dry and apply thick lotion such as aquaphor, Eucerin, Cera Ve or pure zuniga butter to dry skin. Avoid fragrance or bubble baths. Avoid any possible triggers. Keep skin cool and dry as too much moisture may aggravate skin. Elimination diet may be considered as well as derm referral if rash persists. Go to ER if shortness of breath, throat closing, tongue swelling, drop in blood pressure, nausea or vomiting. Not available 09/23/2021 14:54:24 dwp labs needed, plan pending results Not available 09/23/2021 14:54:40 06/23/2022 [id number] Learning About How to Make Healthy Changes in Your Child's Diet [email or web address] Not available 06/23/2022 14:49:14 A healthy lifestyle: care instructions [email or web address] Not available 06/23/2022 14:49:30 03/22/2023 [id number] A healthy lifestyle: care instructions Not available 03/22/2023 12:59:36 carpal tunnel syndrome: exercises [email or web address] Not available 03/22/2023 13:00:02 Rest- Rest your injured body part. Ice Apply a cold gel pack, bag of ice, or bag of frozen vegetables every 1 to 2 hours, for 15 minutes each time. Put a thin towel between the ice (or other cold object) and your skin. Use the ice (or other cold object) for at least 6 hours after your injury. Some people find it helpful to ice longer, even up to 2 days after their injury. Compression Compression basically means pressure. You want to have slight pressure by having it wrapped in an elastic compression bandage. It's important that you do not use too much pressure and cut off the blood flow to body part. Elevation Elevation means you should keep your injury body part raised up above the level of your heart. Not available 03/22/2023 13:01:31 follow up in 2 months Not available 03/22/2023 13:01:45 05/27/2023 [id number] A healthy lifestyle: care instructions Not available 05/27/2023 12:19:16 carpal tunnel syndrome: exercises Not available 05/27/2023 12:19:16 Quitting Tobacco: Care Instructions Not available 05/27/2023 12:19:16 learning about mood disorders Not available 05/27/2023 12:19:16 Take all antibiotics prescribed to you. If any fever or increase in pain, call/return to office. Not available 05/27/2023 12:31:36 Plan pending imaging results. f/u as needed DWP barriers to care: none Not available 05/27/2023 12:31:46 05/17/2024 [id number] learning about mood disorders [email or web address] Not available 05/17/2024 11:38:42 A healthy lifestyle: care instructions [email or web address] Not available 05/17/2024 11:38:42 Quitting Tobacco: Care Instructions [email or web address] Not available 05/17/2024 11:38:42 heavy menstrual periods: care instructions [email or web address] Not available 05/17/2024 11:38:42 Reason for Referral None Reported. Results Created Date Observation Date Name Description Value Unit Range Abnormal Flag Note LastModifiedBy Organization Detail LastModifiedTime 09/24/19 22 09/24/2021 COMP. METAB OLIC PANEL (14) glucose 80 mg/dL 65-99 Not Available [facility] ([facility]) [address] [place], [address], 09/28/2021 16:08:04 09/24/19 22 09/24/2021 COMP. METAB OLIC PANEL (14) BUN 17 mg/dL 6-20 Not Available [facility] ([facility]) [address] [place], [address], 09/28/2021 16:08:04 09/24/19 22 09/24/2021 COMP. METAB OLIC PANEL (14) creatinine 0.88 mg/dL 0.57-1 .00 Not Available [facility] ([facility]) [address] [place], [address], 09/28/2021 16:08:04 09/24/19 22 09/24/2021 COMP. METAB OLIC PANEL (14) eGFR 98 mL/mi n/1.7 3 >59 Not Available [facility] ([facility]) [address] [place], [address], 09/28/2021 16:08:04 09/24/19 22 09/24/2021 COMP. METAB OLIC PANEL (14) BUN/creatini ne ratio 19 9-23 Not Available [facility] ([facility]) [address] [place], [address], 09/28/2021 16:08:04 09/24/19 22 09/24/2021 COMP. METAB OLIC PANEL (14) sodium 141 mmol/ L 134-14 4 Not Available [facility] ([facility]) [address] [place], [address], 09/28/2021 16:08:04 09/24/19 22 09/24/2021 COMP. METAB OLIC PANEL (14) potassium 3.8 mmol/ L 3.5-5. 2 Not Available [facility] ([facility]) [address] [place], [address], 09/28/2021 16:08:04 09/24/19 22 09/24/2021 COMP. METAB OLIC PANEL (14) chloride 107 mmol/ L 96-106 above high normal Not Available [facility] ([facility]) [address] [facility] [place], [address], 09/28/2021 16:08:04 09/24/19 22 09/24/2021 COMP. METAB OLIC PANEL (14) carbon dioxide, total 22 mmol/ L 20-29 Not Available [facility] ([facility]) [address] [facility] [place], [address], 09/28/2021 16:08:04 09/24/19 22 09/24/2021 COMP. METAB OLIC PANEL (14) calcium 8.9 mg/dL 8.7-10 .2 Not Available [facility] ([facility]) [address] [facility] [place], [address], 09/28/2021 16:08:04 09/24/19 22 09/24/2021 COMP. METAB OLIC PANEL (14) protein, total 6.7 g/dL 6.0-8. 5 Not Available [facility] ([facility]) [address], [place], [address], 09/28/2021 16:08:04 09/24/19 22 09/24/2021 COMP. METAB OLIC PANEL (14) albumin 4.3 g/dL 3.9-5. 0 Not Available [facility] ([facility]) [address], [place], [address], 09/28/2021 16:08:04 09/24/19 22 09/24/2021 COMP. METAB OLIC PANEL (14) globulin, total 2.4 g/dL 1.5-4. 5 Not Available [facility] ([facility]) [address] [place], [address], 09/28/2021 16:08:04 09/24/19 22 09/24/2021 COMP. METAB OLIC PANEL (14) A/G ratio 1.8 1.2-2. 2 Not Available [facility] ([facility]) [address], [place], [address], 09/28/2021 16:08:04 09/24/19 22 09/24/2021 COMP. METAB OLIC PANEL (14) bilirubin, total <0.2 mg/dL 0.0-1. 2 Not Available [facility] ([facility]) [address], [place], [address], 09/28/2021 16:08:04 09/24/19 22 09/24/2021 COMP. METAB OLIC PANEL (14) alkaline phosphatase 61 IU/L 42-106 Not Available [facility]) [address], [place], [address], 09/28/2021 16:08:04 09/24/19 22 09/24/2021 COMP. METAB OLIC PANEL (14) AST (SGOT) 18 IU/L 0-40 Not Available [facility] ([facility]) [address] [place], [address], 09/28/2021 16:08:04 09/24/19 22 09/24/2021 COMP. METAB OLIC PANEL (14) ALT (SGPT) 16 IU/L 0-32 Not Available [facility] ([facility]) [address] [facility], [place], [address], 09/28/2021 16:08:04 09/24/19 22 09/24/2021 CBC, NO DIFFE RENTI AL/PL ATELE T WBC 7.6 x10e3 /uL 3.4-10 .8 Not Available [facility] ([facility]) [address] [facility], [place], [address], 09/28/2021 16:08:06 09/24/19 22 09/24/2021 CBC, NO DIFFE RENTI AL/PL ATELE T RBC 3.95 x10e6 /uL 3.77-5 .28 Not Available [facility] ([facility]) [address] [place], [address], 09/28/2021 16:08:06 09/24/19 22 09/24/2021 CBC, NO DIFFE RENTI AL/PL ATELE T hemoglobin 12.6 g/dL 11.1-1 5.9 Not Available [facility] ([facility]) [address] [place], [address], 09/28/2021 16:08:06 09/24/19 22 09/24/2021 CBC, NO DIFFE RENTI AL/PL ATELE T hematocrit 36.5 % 34.0-4 6.6 Not Available [facility] ([facility]) [address] [place], [address], 09/28/2021 16:08:06 09/24/19 22 09/24/2021 CBC, NO DIFFE RENTI AL/PL ATELE T MCV 92 fL 79-97 Not Available [facility] ([facility]) [address] [place], [address], 09/28/2021 16:08:06 09/24/19 22 09/24/2021 CBC, NO DIFFE RENTI AL/PL ATELE T MCH 31.9 pg 26.6-3 3.0 Not Available [facility] ([facility]) [address] [place], [address], 09/28/2021 16:08:06 09/24/19 22 09/24/2021 CBC, NO DIFFE RENTI AL/PL ATELE T MCHC 34.5 g/dL 31.5-3 5.7 Not Available [facility] ([facility]) [address] [place], [address], 09/28/2021 16:08:06 09/24/19 22 09/24/2021 CBC, NO DIFFE RENTI AL/PL ATELE T RDW 12.4 % 11.7-1 5.4 Not Available [facility] ([facility]) [address] [place], [address], 09/28/2021 16:08:06 09/24/19 22 09/24/2021 CBC, NO DIFFE RENTI AL/PL ATELE T NRBC B[employer] Not Available [facility] ([facility]) [address] [place], [address], 09/28/2021 16:08:06 09/24/19 22 09/24/2021 LIPID PANEL cholesterol, total 144 mg/dL 100-16 9 Not Available [facility] ([facility]) [address] [place], [address], 09/28/2021 16:08:07 09/24/19 22 09/24/2021 LIPID PANEL triglyceride s 52 mg/dL 0-89 Not Available [facility] ([facility]) [address] [facility], [place], [address], 09/28/2021 16:08:07 09/24/19 22 09/24/2021 LIPID PANEL HDL cholesterol 57 mg/dL >39 Not Available [facility] ([facility]) [address] [facility], [place], [address], 09/28/2021 16:08:07 09/24/19 22 09/24/2021 LIPID PANEL VLDL cholesterol nimesh 11 mg/dL 5-40 Not Available [facility] ([facility]) [address] [facility], [place], [address], 09/28/2021 16:08:07 09/24/19 22 09/24/2021 LIPID PANEL LDL chol calc (rust) 76 mg/dL 0-109 Not Available [facility] ([facility]) [address] [place], [address], 09/28/2021 16:08:07 09/24/19 22 09/24/2021 LIPID PANEL comment: B[employer] Not Available [facility] ([facility]) [address] [facility], [place], [address], 09/28/2021 16:08:07 09/24/19 22 09/24/2021 TSH RFX ON ABNOR MAL TO FREE T4 TSH 2.060 uIU/m L 0.450- 4.500 Not Available [facility] ([facility]) [address] [place], [address], 09/28/2021 16:08:08 09/24/19 22 09/23/2021 ALLER GENS, ZONE 8 class description Commen t Level s of Speci fic IgE Class Descr iptio n of Class ----- ----- ----- ----- ----- -- ----- ----- ----- ----- ----- < 0.10 0 Negat zackary 0.10 - 0.31 0/I Equiv ocal/ Low 0.32 - 0.55 I Low 0.56 - 1.40 II Moder ate 1.41 - 3.90 III High 3.91 - 19.00 IV Very High 19.01 - 100.0 0 V Very High >100. 00 Very High Not Available [facility] ([facility]) [address] [place], [address], 09/28/2021 16:08:09 09/24/19 22 09/28/2021 ALLER GENS, ZONE 8 C613-CcB D pteronyssinu s <0.10 kU/L class 0 Not Available [facility] ([facility]) [address] [place], [address], 09/28/2021 16:08:09 09/24/19 22 09/28/2021 ALLER GENS, ZONE 8 F497-PxF D farinae <0.10 kU/L class 0 Not Available [facility] ([facility]) [address] [place], [address], 09/28/2021 16:08:09 09/24/19 22 09/28/2021 ALLER GENS, ZONE 8 S402-IoW CAT dander <0.10 kU/L class 0 Not Available [facility] ([facility]) [address] [place], [address], 09/28/2021 16:08:09 09/24/19 22 09/28/2021 ALLER GENS, ZONE 8 O266-OjR dog dander <0.10 kU/L class 0 Not Available [facility] ([facility]) [address] [place], [address], 09/28/2021 16:08:09 09/24/19 22 09/28/2021 ALLER GENS, ZONE 8 v397-NbF bermuda grass <0.10 kU/L class 0 Not Available [facility] ([facility]) [address] [place], [address], 09/28/2021 16:08:09 09/24/19 22 09/28/2021 ALLER GENS, ZONE 8 v612-CdC bluegrass, zuri <0.10 kU/L class 0 Not Available [facility] ([facility]) [address] [facility] [place], [address], 09/28/2021 16:08:09 09/24/19 22 09/28/2021 ALLER GENS, ZONE 8 r591-OmO balaji grass <0.10 kU/L class 0 Not Available [facility] ([facility]) [address] [facility], [place], [address], 09/28/2021 16:08:09 09/24/19 22 09/28/2021 ALLER GENS, ZONE 8 u499-VtP bahia grass <0.10 kU/L class 0 Not Available [facility] ([facility]) [address] [facility], [place], [address], 09/28/2021 16:08:09 09/24/19 22 09/28/2021 ALLER GENS, ZONE 8 M483-SeD cockroach, palauan 0.12 kU/L class 0/I abnormal Not Available [facility] ([facility]) [address] [facility] [place], [address], 09/28/2021 16:08:09 09/24/19 22 09/28/2021 ALLER GENS, ZONE 8 Y653-LbE penicillium chrysogen <0.10 kU/L class 0 Not Available [facility] ([facility]) [address] [place], [address], 09/28/2021 16:08:09 09/24/19 22 09/28/2021 ALLER GENS, ZONE 8 I923-RsE cladosporium herbarum <0.10 kU/L class 0 Not Available [facility] ([facility]) [address] [place], [address], 09/28/2021 16:08:09 09/24/19 22 09/28/2021 ALLER GENS, ZONE 8 W369-ObC aspergillus fumigatus <0.10 kU/L class 0 Not Available [facility] ([facility]) [address] [facility] [place], [address], 09/28/2021 16:08:09 09/24/19 22 09/28/2021 ALLER GENS, ZONE 8 I631-JmO mucor racemosus <0.10 kU/L class 0 Not Available [facility] ([facility]) [address] [facility], [place], [address], 09/28/2021 16:08:09 09/24/19 22 09/28/2021 ALLER GENS, ZONE 8 X742-OwK alternaria alternata <0.10 kU/L class 0 Not Available [facility] ([facility]) [address] [facility] [place], [address], 09/28/2021 16:08:09 09/24/19 22 09/28/2021 ALLER GENS, ZONE 8 J403-AwL stemphylium herbarum <0.10 kU/L class 0 Not Available [facility] ([facility]) [address] [facility] [place], [address], 09/28/2021 16:08:09 09/24/19 22 09/28/2021 ALLER GENS, ZONE 8 Z072-KzY oak, white <0.10 kU/L class 0 Not Available [facility] ([facility]) [address] [facility] [place], [address], 09/28/2021 16:08:09 09/24/19 22 09/28/2021 ALLER GENS, ZONE 8 L875-ApV elm, palauan <0.10 kU/L class 0 Not Available [facility] ([facility]) [address] [facility] [place], [address], 09/28/2021 16:08:09 09/24/19 22 09/28/2021 ALLER GENS, ZONE 8 J188-NtM maple/box elder <0.10 kU/L class 0 Not Available [facility] ([facility]) [address], [place], [address], 09/28/2021 16:08:09 09/24/19 22 09/28/2021 ALLER GENS, ZONE 8 A005-OeH hazelnut tree <0.10 kU/L class 0 Not Available [facility] ([facility]) [address], [place], [address], 09/28/2021 16:08:09 09/24/19 22 09/28/2021 ALLER GENS, ZONE 8 C012-QtM hickory, white <0.10 kU/L class 0 Not Available [facility] ([facility]) [address], [place], [address], 09/28/2021 16:08:09 09/24/19 22 09/28/2021 ALLER GENS, ZONE 8 E126-RyU maple leaf sycamore <0.10 kU/L class 0 Not Available [facility] ([facility]) [address], [place], [address], 09/28/2021 16:08:09 09/24/19 22 09/28/2021 ALLER GENS, ZONE 8 K983-WgF white mulberry <0.10 kU/L class 0 Not Available [facility] ([facility]) [address], [place], [address], 09/28/2021 16:08:09 09/24/19 22 09/28/2021 ALLER GENS, ZONE 8 Q229-OlL cedar, mountain <0.10 kU/L class 0 Not Available [facility] ([facility]) [address], [place], [address], 09/28/2021 16:08:09 09/24/19 22 09/28/2021 ALLER GENS, ZONE 8 J448-TiE sweet gum <0.10 kU/L class 0 Not Available [facility] ([facility]) [address] [facility] [place], [address], 09/28/2021 16:08:09 09/24/19 22 09/28/2021 ALLER GENS, ZONE 8 Q818-YkM ragweed, short <0.10 kU/L class 0 Not Available [facility] ([facility]) [address] [facility] [place], [address], 09/28/2021 16:08:09 09/24/19 22 09/28/2021 ALLER GENS, ZONE 8 X015-NjR mugwort <0.10 kU/L class 0 Not Available [facility] ([facility]) [address] [facility], [place], [address], 09/28/2021 16:08:09 09/24/19 22 09/28/2021 ALLER GENS, ZONE 8 X306-QtZ plantain, maltese <0.10 kU/L class 0 Not Available [facility] ([facility]) [address] [facility], [place], [address], 09/28/2021 16:08:09 09/24/19 22 09/28/2021 ALLER GENS, ZONE 8 P579-DsQ pigweed, common <0.10 kU/L class 0 Not Available [facility] ([facility]) [address] [facility] [place], [address], 09/28/2021 16:08:09 09/24/19 22 09/28/2021 ALLER GENS, ZONE 8 A636-NpV sheep sorrel 0.17 kU/L class 0/I abnormal Not Available [facility] ([facility]) [address] [facility] [place], [address], 09/28/2021 16:08:09 09/24/19 22 09/28/2021 ALLER GENS, ZONE 8 S496-XjE nettle 0.11 kU/L class 0/I abnormal Not Available [facility] ([facility]) [address] [place], [address], 09/28/2021 16:08:09 09/24/19 22 09/28/2021 FOOD ALLER GY PROFI LE H278-FrH egg white <0.10 kU/L class 0 Not Available [facility] ([facility]) [address] [place], [address], 09/28/2021 16:08:10 09/24/19 22 09/28/2021 FOOD ALLER GY PROFI LE S738-RkZ peanut <0.10 kU/L class 0 Not Available [facility] ([facility]) [address] [place], [address], 09/28/2021 16:08:10 09/24/19 22 09/28/2021 FOOD ALLER GY PROFI LE A608-WuC soybean <0.10 kU/L class 0 Not Available [facility] ([facility]) [address] [place], [address], 09/28/2021 16:08:10 09/24/19 22 09/28/2021 FOOD ALLER GY PROFI LE R226-SzV milk <0.10 kU/L class 0 Not Available [facility] ([facility]) [address] [place], [address], 09/28/2021 16:08:10 09/24/19 22 09/28/2021 FOOD ALLER GY PROFI LE V398-HtX clam <0.10 kU/L class 0 Not Available [facility] ([facility]) [address] [place], [address], 09/28/2021 16:08:10 09/24/19 22 09/28/2021 FOOD ALLER GY PROFI LE G155-UhG shrimp <0.10 kU/L class 0 Not Available [facility] ([facility]) [address] [place], [address], 09/28/2021 16:08:10 09/24/19 22 09/28/2021 FOOD ALLER GY PROFI LE T065-JzL walnut <0.10 kU/L class 0 Not Available [facility] ([facility]) [address] [facility], [place], [address], 09/28/2021 16:08:10 09/24/19 22 09/28/2021 FOOD ALLER GY PROFI LE H059-ZsJ codfish <0.10 kU/L class 0 Not Available [facility] ([facility]) [address] [place], [address], 09/28/2021 16:08:10 09/24/19 22 09/28/2021 FOOD ALLER GY PROFI LE E230-HeN scallop <0.10 kU/L class 0 Not Available [facility] ([facility]) [address] [place], [address], 09/28/2021 16:08:10 09/24/19 22 09/28/2021 FOOD ALLER GY PROFI LE S176-JjS wheat <0.10 kU/L class 0 Not Available [facility] ([facility]) [address] [place], [address], 09/28/2021 16:08:10 09/24/19 22 09/28/2021 FOOD ALLER GY PROFI LE B044-IwQ corn <0.10 kU/L class 0 Not Available [facility] ([facility]) [address] [place], [address], 09/28/2021 16:08:10 09/24/19 22 09/28/2021 FOOD ALLER GY PROFI LE X029-AmF sesame seed <0.10 kU/L class 0 Not Available [facility] ([facility]) [address] [place], [address], 09/28/2021 16:08:10 09/24/19 22 09/24/2021 DONI W/REF PAULA IF POSIT ZACKARY DONI direct Negati ve negati ve Not Available [facility] ([facility]) [address] [place], [address], 09/28/2021 16:08:12 09/24/19 22 09/24/2021 SEDIM ENTAT ION RATE- WESTE RGREN sedimentatio n rate-westerg mo 2 mm/HR 0-32 Not Available [facility] ([facility]) [address] [facility], [place], [address], 09/28/2021 16:08:13 09/24/19 22 09/24/2021 C-WESTON CTIVE PROTE IN, QUANT C-reactive protein, quant 2 mg/L 0-10 Not Available [facility] ([facility]) [address] [facility], [place], [address], 09/28/2021 16:08:14 06/23/19 23 06/24/2022 CT, NG, TRICH VAG BY DEBO chlamydia by DEBO Negati ve negati ve Not Available [facility] ([facility]) [address] [place], [address], 06/25/2022 07:14:51 06/23/19 23 06/24/2022 CT, NG, TRICH VAG BY DEBO gonococcus by DEBO Negati ve negati ve Not Available [facility] ([facility]) [address] [place], [address], 06/25/2022 07:14:51 06/23/19 23 06/24/2022 CT, NG, TRICH VAG BY DEBO trich vag by DEBO Negati ve negati ve Not Available [facility] ([facility]) [address] [place], [address], 06/25/2022 07:14:51 06/05/19 24 06/01/2023 elect romyo gram + nerve condu ction study No observ ation record ed. [email or web address] [address] [facility] , [place], [address], 06/17/2023 08:09:58 06/05/1906/01/2024 US, pelvi s, trans abdom inal + trans vagin al No observ ation record ed. [facility] [address] [facility] [place], [address], 06/09/2024 06:02:19 Result Notes None recorded. Problems Name Problem SNOMED Code Status Onset Date Resolution Date Notes Provider Name and Address Organization Details Recorded Time Obesity 943526015 Active 2021 Denise Manjarrez APN, FNP-C Attn: Accounting ,[address] [place], [address] , [facility] 2 14:48:15 Tobacco user [id number] Active 2021 Denise Manjarrez APN, FNP-C Attn: Accounting ,[address] [place], [address] , [facility] 2 14:48:17 Contact dermatit is [id number] Active 2021 Denise Manjarrez APN, FNP-C Attn: Accounting ,[address] [place], [address] , [facility] 2 15:07:17 Paresthe jimmy of bilatera l hands [id number] Active 2023 Denise Manjarrez APN, FNP-C Attn: Accounting ,[address] [place], [address] , [facility] 4 12:19:19 Heel pain [id number] Completed 12/16/2017 Poli Upton [facility] 8 16:02:41 Soft tissue lesion [id number] Completed 09/23/2021 Seen by [facility] SURGERY, dx'd w/ sebaceou s cyst, excision planned. Denise Manjarrez APN, FNP-C Attn: Accounting ,[address] [place], [address] , [place] [facility] 2 14:28:03 Obesity [id number] Completed 12/16/2017 Denise Manjarrez APN, FNP-C Attn: Accounting ,[address] [facility], [place], [address] , [place] [facility] 2 14:48:15 Pharyngi tis [id number] Completed 12/16/2017 Poli Alex[place]andra [place], [place] [facility] 8 16:02:45 Acute sinusiti s 25733186 Completed 12/16/2017 Poli [place] [facility] 8 16:02:30 Acute non-supp urative serous otitis media 117679114 Completed 12/16/2017 Poli [place] [facility] 8 16:02:32 Pneumoni a [id number] Completed 12/16/2017 Pol[place] [facility] 8 16:02:34 Wheezing [id number] Completed 12/16/2017 Pol[place] [facility] 8 16:02:49 Upper respirat ory infectio n 29760929 Completed 12/16/2017 Pol[place] [facility] 8 16:02:47 Persiste nt cough 578022083 Completed 12/16/2017 Poli [place] [facility] 8 16:02:43 Overweig ht [id number] Active Not Available [facility] 2 19:59:07 Acne 76282291 Active Not Available [facility] 2 19:59:07 Problem Notes None recorded. Procedures Surgical History Date Name Laterality Status Provider Name and Address Organization Details Recorded Time 3 Control Implant Removal completed BRISEIDA Alvarenga Attn: Accounting,[address] [facility], [place], [address], [place] [facility] 06/23/2022 14:50:39 0 Control Implant Replacement completed Humza Reyna MD Attn: Accounting,[address] [facility], [place], [address], [place] [facility] 03/27/2020 15:14:02 8 Cryosurgery Warts/Skin Tags completed Jeanette Webster MD Attn: Accounting,[address] [facility], [place], [address], [place] [facility] 09/30/2017 14:39:33 7 Control Implant Insertion completed Humza Reyna MD Attn: Accounting,[address] [facility], [place], [address], [place] [facility] 08/03/2016 18:31:27 7 IUD Removal completed Humza Reyna MD Attn: Accounting,[address] [facility], [place], [address], [place] [facility] 08/03/2016 18:31:21 7 IUD Insertion completed Humza Reyna MD Attn: Accounting,[address] [facility], [place], [address], [place] [facility] 07/01/2016 16:49:38 Imaging Results Imaging Date Name Status LastModified by Organization Details LastModified Time 06/01/2023 electromyogram + nerve conduction study completed [email or web address] [address] [place], [address], 06/17/2023 08:09:58 06/01/2024 US, pelvis, transabdominal + transvaginal completed [address] [place], [address], 06/09/2024 06:02:19 Procedure Notes None recorded. Medical Equipment None Reported. Allergies Allergen ID Allergen Name Allergen Category Reaction Reaction Severity Criticality Documentation Date Start Date Code Code System Note Provider Name and Address Organization Details Recorded Time 469906 Adderall medicatio n rash Not available Not available 06/23/2022 74115 RxNorm Not Available Not Available Not Available Medications Name Sig Start Date Stop Date Status Note LastModified by Organization Details LastModified Time loratadine 10 mg tabs 06/22 completed Not Available Not Available Not Available amoxicilli n/clavulan ate potassium 875-125 mg tabs 06/22 completed Not Available Not Available Not Available azithromyc in 250 mg tabs 06/22 completed Not Available Not Available Not Available amoxicilli n 500 mg capsule Take 2 capsules twice a day by oral route with meals for 10 days. 08/12 completed Not Available Not Available Not Available prednisone 10 mg tablet PLEASE SEE ATTACHED FOR DETAILED DIRECTIO NS 06/23 completed Not Available Not Available Not Available clindamyci n HCl 300 mg capsule 12/11 completed Not Available Not Available Not Available cetirizine 10 mg tablet Take 1 tablet every day by oral route at bedtime. 09/23 completed Not Available Not Available Not Available azithromyc in 250 mg tablet TAKE 2 TABLETS (500 MG) BY ORAL ROUTE ONCE DAILY FOR 1 DAY THEN 1 TABLET (250 MG) BY ORAL ROUTE ONCE DAILY FOR 4 DAYS 09/23 completed Not Available Not Available Not Available ibuprofen 800 mg tablet TAKE 1 TABLET BY MOUTH THREE TIMES A DAY NEEDED FOR PAIN 03/22 completed Not Available Not Available Not Available tretinoin 0.025 % topical cream Use on face qhs. Use dime size amt. on face qhs. Use every other night for first couple of weeks. 12/11 completed Not Available Not Available Not Available prednisone 20 mg tablet TAKE 2 TABLETS BY MOUTH EVERY DAY FOR 5 DAYS 09/23 completed Not Available Not Available Not Available penicillin V potassium 500 mg tablet TAKE 1 TABLET BY MOUTH EVERY 8 HOURS X 10 DAYS 03/22 completed Not Available Not Available Not Available metronidaz ole 500 mg tablet Take 1 tablet twice a day by oral route for 7 days. 09/23 completed Not Available Not Available Not Available sulfametho xazole 800 mg-trimeth oprim 160 mg tablet TAKE 1 TABLET BY MOUTH EVERY 12 HOURS FOR 7 DAYS 05/17 completed Not Available Not Available Not Available acetaminop hen 500 mg tablet TAKE 1 TABLET BY MOUTH EVERY 6 HOURS NEEDED FOR PAIN active Not Available Not Available No t Available triamcinol one acetonide 0.1 % topical cream APPLY THIN COAT TO AFFECTED AREA TWICE A DAY 02/28 /2023 completed Not Available Not Available Not Available ofloxacin 0.3 % ear drops 5 DROPS INTO RIGHT EAR EVERY 12 HOURS FOR 7 DAYS 05/17 completed Not Available Not Available Not Available amoxicilli n 875 mg tablet TAKE 1 TABLET BY MOUTH EVERY 12 HOURS 06/23 completed Not Available Not Available Not Available tretinoin 0.025 % topical gel Apply by topical route to affected area on face qhs, initiall y start every other night for 1-2 weeks. 06/22 completed Not Available Not Available Not Available benzonatat e 100 mg capsule 09/23 completed not taking Not Available Not Available Not Available cephalexin 500 mg capsule TAKE 1 CAPSULE BY MOUTH EVERY 6 HOURS FOR 10 DAYS 05/17 completed Not Available Not Available Not Available diphenhydr amine 25 mg tablet Take 2 tablets every 4-6 hours by oral route as needed. 12/11 completed Not Available Not Available Not Available ibuprofen 200 mg tablet 09/23 completed not taking Not Available Not Available Not Available diclofenac potassium 50 mg tablet TAKE 1 TABLET (50 MG) BY MOUTH 3 TIMES DAILY NEEDED FOR PAIN active Not Available Not Available No t Available hydroxyzin e HCl 25 mg tablet 12/11 completed Not Available Not Available Not Available mupirocin 2 % topical ointment Apply to affected lesion to affected area twice a day for 1 week. 12/16 completed Not Available Not Available Not Available ibuprofen 600 mg tablet TAKE 1 TABLET BY MOUTH 3 TIMES A DAY NEEDED FOR FEVER OR PAIN active Not Available Not Available No t Available Prozac 10 mg capsule Take 1 capsule every day by oral route for 30 days. 10/17 completed Not Available Not Available Not Available ketoconazo le 2 % topical cream Apply to affected lesion BID for 2 weeks. 12/16 completed Not Available Not Available Not Available ondansetro n 4 mg disintegra ting tablet TAKE 1 TABLET BY MOUTH EVERY 6 HOURS NEEDED FOR NAUSEA AND VOMITING 03/22 completed Not Available Not Available Not Available cefdinir 300 mg capsule TAKE 1 CAPSULE BY MOUTH EVERY 12 HOURS X 10 DAYS 05/17 completed Not Available Not Available Not Available fluticason e propionate 50 mcg/actuat ion nasal spray,susp ension INSTILL 2 SPRAYS DAILY ADMINIST ER INTO EACH NOSTRIL active Not Available Not Available No t Available loratadine 10 mg tablet TAKE 1 TABLET BY MOUTH EVERY DAY 03/22 completed Not Available Not Available Not Available amoxicilli n 875 mg-potassi um clavulanat e 125 mg tablet TAKE 1 TABLET ORALLY TWICE A DAY FOR 7 DAYS 03/22 completed Not Available Not Available Not Available Ventolin HFA 90 mcg/actuat ion aerosol inhaler Inhale 2 puffs every 4-6 hours by inhalati on route as needed. 06/22 completed Not Available Not Available Not Available neomycin-p olymyxin-h ydrocort 3.5 mg-10,000 unit/mL-1 % ear drops,susp ADMINIST ER 4 DROPS INTO THE RIGHT EAR 3 (THREE) TIMES A DAY 03/22 completed Not Available Not Available Not Available escitalopr am 10 mg tablet TAKE 1 TABLET BY MOUTH EVERY DAY 09/23 completed Not Available Not Available Not Available cyclobenza ira 5 mg tablet TAKE 1 TABLET BY MOUTH THREE TIMES A DAY NEEDED FOR MUSCLE SPASM active Not Available Not Available No t Available nitrofuran toin monohydrat e/macrocry stals 100 mg capsule TAKE 1 CAPSULE BY MOUTH EVERY 12 HOURS FOR 7 DAYS WITH FOOD 03/22 completed Not Available Not Available Not Available Pain and Fever 325 mg tablet 09/23 completed not taking Not Available Not Available Not Available Nexplanon 68 mg subdermal implant Inject 1 implant by subcutan eous route. 03/22 completed Not Available Not Available Not Available BP 10 % topical gel Apply by topical route to areas on chest back once a day 06/22 completed Not Available Not Available Not Available Foaming Acne Face Wash 10 % topical cleanser Use BID as directed on face, chest, and back. 12/11 completed Not Available Not Available Not Available Kyleena 17.5 mcg/24 hr (up to 5 years) 19.5 mg intrauteri ne device Take by intraute rine route. 12/16 completed Not Available Not Available Not Available EC-Naproxe n 500 mg tablet,del ayed release TAKE 1 TABLET BY MOUTH TWICE A DAY NEEDED active Not Available Not Available No t Available Vitals Date Recorded Body height Body mass index (BMI) Body mass index (BMI) Percentile per age and sex Body weight Oxygen saturation Oxygen saturation in Arterial blood by Pulse oximetry Respiratory rate Body temperature Systolic blood pressure Diastolic blood pressure Provider Name and Address Organization Details Last Updated DateTime 2 165.1 cm 33.8 kg/m2 97 % 28206.9 5 g 99 % 99 % 16 /min 97.7 [degF] 110 mm[Hg] 80 mm[Hg] Antonio Barnett MA [facility] 2 14:13:21 Date Recorded Heart rate Provider Name an d Address Organization Details Last Updated DateTime 09/23/2021 99 /min ЕЛЕНА Wolff, STAFF WRITER-C Attn: Accounting,[address] [place], [address], [facility] 09/23/2021 14:29:01 Date Recorded Body height Body mass index (BMI) Percentile per age and sex Body mass index (BMI) Body weight Systolic blood pressure Diastolic blood pressure Provider Name and Address Organization Details Last Updated DateTime 3 165.1 cm 98 % 37.1 kg/m2 079393. 1 g 114 mm[Hg] 78 mm[Hg] Edel Dexter Sven [facility] 3 14:24:02 Date Recorded Body height Body mass index (BMI) Percentile per age and sex Body mass index (BMI) Body weight Oxygen saturation Oxygen saturation in Arterial blood by Pulse oximetry Heart rate Respiratory rate Body temperature Systolic blood pressure Diastolic blood pressure Provider Name and Address Organization Details Last Updated DateTime 3 165.1 cm 98.36 % 38.9 kg/m2 546482. 61 g 98 % 98 % 104 /min 16 /min 98 [degF] 120 mm[Hg] 74 mm[Hg] Jolene Lobato Sven [facility] 3 12:12:25 Date Recorded Body height Body mass index (BMI) Percentile per age and sex Body mass index (BMI) Body weight Oxygen saturation Oxygen saturation in Arterial blood by Pulse oximetry Heart rate Respiratory rate Body temperature Systolic blood pressure Diastolic blood pressure Provider Name and Address Organization Details Last Updated DateTime 4 165.1 cm 98.1 % 38.4 kg/m2 532204. 84 g 98 % 98 % 104 /min 16 /min 97.5 [degF] 118 mm[Hg] 74 mm[Hg] Jolene Cheryle, RMA [facility] 4 12:13:33 Date Recorded Body height Body mass index (BMI) Body mass index (BMI) Percentile per age and sex Body weight Heart rate Systolic blood pressure Diastolic blood pressure Provider Name and Address Organization Details Last Updated DateTime 5 165.1 cm 38.2 kg/m2 98 % 168015. 45 g 90 /min 118 mm[Hg] 76 mm[Hg] Sridevi Mayen Nabeel [facility] 5 10:56:00 Social History Question Answer Notes LastModified by Organizat ion Details LastModified Time Tobacco Smoking Status Current Every Day Smoker ELLIE [place], [place] - [facility] 09/23/2021 14:18:16 Do You Have An Advance Directive? No Information not available 09/23/2021 What Is Your Level Of Alcohol Consumption? None Information not available 05/27/2023 How Many Years Have You Consumed Alcohol? 1 Information not available 09/23/2021 Animal Exposure? Yes 2 Dogs [email or web address] Information not available 04/17/2014 Do You Wear A Helmet When Biking? No [email or web address] Information not available 04/17/2014 Are You Blind Or Do You Have Difficulty Seeing? No Information not available 09/23/2021 Are You Or Have You Been Involved With Bullying? No [email or web address] Information not available 04/17/2014 What Is Your Level Of Caffeine Consumption? Occasional Information not available 03/22/2023 What Type Of Material Planner Do You Use? None [email or web address] Information not available 04/17/2014 In The 14 Days Before Symptom Onset, Have You Had Close Contact With A Laboratory-conf irmed COVID-19 While That Case Was Ill? No Information not available 09/23/2021 In The 14 Days Before Symptom Onset, Have You Had Close Contact With A Person Who Is Under Investigation For COVID-19 While That Person Was Ill? No Information not available 09/23/2021 Have You Been To An Area Known To Be High Risk For COVID-19? No Information not available 09/23/2021 Are You Currently Employed? Yes Information not available 09/23/2021 Are You Deaf Or Do You Have Serious Difficulty Hearing? No [place] [employer] [place] [employer] [place] [employer] Information not available 09/23/2021 What Type Of Diet Are You Following? REGULAR [email or web address] Information not available 04/17/2014 Do You Or Have You Ever Used E-cigarettes Or Vape? Current User Of Electronic Cigarettes 5% Cm Information not available 09/23/2021 What Is Your Occupation? [employer] Information not available 05/27/2023 Have There Been Any Changes To Your Family Or Social Situation? Yes [email or web address] Information not available 12/11/2016 What Is The Fluoride Status Of Your Home? Fluoridated [email or web address] Information not available 08/12/2016 Are There Any Guns Present In Your Home? No [email or web address] Information not available 04/17/2014 What Is Your Home Situation? Father Dad, Sister [email or web address] Information not available 08/12/2016 Do You Use Insect Repellent Routinely? Yes [email or web address] Information not available 04/17/2014 Car Seat Type Or Seat Belt? Seat Belt [email or web address] Information not available 04/17/2014 Parent Involvement? Both Parents Involved [email or web address] Information not available 04/17/2014 Riding In Car Front Seat? Yes [email or web address] Information not available 04/17/2014 What Was The Date Of Your Most Recent Tobacco Screening? 05/17/2024 Information not available 05/17/2024 How Many Children Do You Have? 0 Information not available 09/23/2021 What Is Your Parents' Marital Status? Information not available 08/12/2016 Pool Exposure No [email or web address] Informatio n not available 04/17/2014 Do You Use Protection During Sex? No Information not available 09/23/2021 What Is Your Relationship Status? Single Boyfriend Information not available 09/23/2021 What Is The Name Of Your School? [employer] [email or web address] Information not available 12/16/2017 Do You Use Your Seat Belt Or Car Seat Routinely? Yes Information not available 09/23/2021 Are You Sexually Active? Yes Information not available 09/23/2021 Do You Have Any Siblings? 1 Sister, 1 Brother [email or web address] Information not available 04/17/2014 Do You Have Smoke And Carbon Monoxide Detectors In Your Home? Yes [email or web address] Information not available 04/17/2014 At What Age Did You Start Smoking Tobacco? 14 Information not available 09/23/2021 Are You Passively Exposed To Smoke? Yes Dad Smoke Outside [email or web address] Information not available 04/17/2014 How Much Tobacco Do You Smoke? 0.5 PPD Information not available 09/23/2021 What Types Of Sporting Activities Do You Participate In? Basketball, Soccer, Volleyball, Softball [email or web address] Information not available 10/17/2018 Do You Feel Stressed (tense, Restless, Nervous, Or Anxious, Or Unable To Sleep At Night)? [id number] Information not available 05/27/2023 Do You Use Any Illicit Or Recreational Drugs? 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 Yes [email or web address] Information not available 04/17/2014 Has Tobacco Cessation Counseling Been Provided? Yes [email or web address] Information not available 05/17/2024 On What Date Was Tobacco Cessation Counseling Provided? 05/17/2024 Information not available 05/17/2024 How Many Years Have You Smoked Tobacco? 3 03/22/23 Information not available 03/22/2023 Year In School 10 [email or web address] Infor mation not available 10/17/2018 Do You Or Have You Ever Used Any Other Forms Of Tobacco Or Nicotine? Yes Information not available 09/23/2021 How Many Years Have You Used E-cigarettes Or Vape? 3 03/22/23 Information not available 03/22/2023 Sex: Female Functional Status Question Answer Note LastModified by Organization D etails LastModified Time Are you able to care for yourself? Yes Information n ot available 09/23/2021 What is your exercise level? None Information not available 03/22/2023 Mental Status None recorded. Family History Relationship Description Onset Age of this Age Resolved Age Notes LastModified by Organization Details LastModified Time Paternal Grandfather Diabetes mellitus [email or web address] Not available 2015 12:01:33 Paternal Grandfather Hypertensive disorder [email or web address] Not available 04/2023 12:10:46 Paternal Grandmother Diabetes mellitus [email or web address] Not available 2015 12:01:33 Father Hypertensive disorder [email or web address] Not available 04/2023 12:10:53 Medical History Condition Response Coronary Artery Disease N Other N High Blood Pressure N Atrial Fibrillation N Kidney or Bladder Problems N Thyroid Problems N GI Problems N Depression Y COPD N Blood Clots N Skin Problems N Anemia N Heart Attack (ME) N Anxiety Disorder N Diabetes N Muscle, Joint, or Bone Problems Y Seizures/Epilepsy N Acid Reflux (GERD) N Cancer N Stroke N Asthma N Allergies N High Cholesterol N Hepatitis N Liver Disease N Headaches N Osteoporosis N Heart Failure N Gynecological History Statement/Question Response Flow Heavy Date of LMP 05/07/2024 Sexually Active? Y Menses Monthly Y STIs/STDs N HPV Vaccine N Sexual Problems? N Duration of Flow (days) 14 Current Control Method None Age at Menarche 9 LMP Definite Obstetrics History GPAL:G 0 P 0 0 0 0 Immunizations Vaccine Type Date Status Note Provider Nam e and Address Organization Details Recorded Time HPV9 6 completed Not Available [email or web address] 05/13/2019 02:32:04 Influenza, split virus, quadrivalent, preservative 6 completed Not Available [email or web address] 05/13/2019 02:32:32 Tdap 5 completed Not Available [facility] 05/13/2019 02:42:33 Hep B, adolescent or pediatric 4 completed Not Available [facility] 07/24/2022 17:59:20 Hep B, adolescent or pediatric 4 completed Not Available [facility] 07/24/2022 17:59:20 Hep B, adolescent or pediatric 4 completed Not Available [facility] 07/24/2022 17:59:20 Hep B, adolescent or pediatric 4 completed Not Available [facility] 07/24/2022 17:59:20 DTaP 9 completed Not Available [facility] 07/24/2022 17:59:20 DTaP 4 completed Not Available [email or web address] 07/24/2022 17:59:20 DTaP 5 completed Not Available [facility] 07/24/2022 17:59:20 DTaP 4 completed Not Available [email or web address] 07/24/2022 17:59:20 DTaP 4 completed Not Available [facility] 07/24/2022 17:59:20 Hib, unspecified formulation 4 completed Not Available [facility] 07/24/2022 17:59:20 Hib, unspecified formulation 5 completed Not Available [facility] 07/24/2022 17:59:20 Hib, unspecified formulation 4 completed Not Available [facility] 07/24/2022 17:59:20 Hib, unspecified formulation 4 completed Not Available [facility] 07/24/2022 17:59:20 IPV 4 completed Not Available [facility] 07/24/2022 17:59:20 IPV 9 completed Not Available [facility] 07/24/2022 17:59:20 IPV 4 completed Not Available [facility] 07/24/2022 17:59:20 IPV 4 completed Not Available [facility] 07/24/2022 17:59:20 pneumococcal conjugate PCV 7 4 completed Not Available [facility] 07/24/2022 17:59:20 pneumococcal conjugate PCV 7 5 completed Not Available [email or web address] 07/24/2022 17:59:20 pneumococcal conjugate PCV 7 4 completed Not Available [facility] 07/24/2022 17:59:20 pneumococcal conjugate PCV 7 4 completed Not Available [facility] 07/24/2022 17:59:20 MMR 8 completed Not Available [email or web address] 07/24/2022 17:59:20 MMR 5 completed Not Available [facility] 07/24/2022 17:59:20 varicella 8 completed Not Available [facility] 07/24/2022 17:59:20 varicella 5 completed Not Available [facility] 07/24/2022 17:59:20 influenza, unspecified formulation 0 completed Not Available [facility] 07/24/2022 17:59:20 influenza, unspecified formulation 3 completed Not Available [facility] 07/24/2022 17:59:20 influenza, unspecified formulation 8 completed Not Available [facility] 07/24/2022 17:59:20 influenza, unspecified formulation 3 completed Not Available [facility] 07/24/2022 17:59:20 Hep A, ped/adol, 2 dose 7 completed Not Available [facility] 07/24/2022 17:59:20 Hep A, ped/adol, 2 dose 6 completed Not Available [facility] 07/24/2022 17:59:20 Influenza, split virus, quadrivalent, PF 8 completed Not Available [facility] 05/13/2019 02:36:58 Meningococcal MCV4O 5 completed Not Available [facility] 05/13/2019 02:43:38 HPV, quadrivalent 5 completed Not Available [facility] 05/13/2019 02:30:41 Influenza, split virus, quadrivalent, PF 5 completed Not Available [facility] 05/13/2019 02:32:06 HPV9 5 completed Not Available [facility] 05/13/2019 02:50:31 Past Encounters Encounter ID Performer Location Encounter Start Date Encounter Closed Date Diagnosis/Indication Diagnosis SNOMED-CT Code Diagnosis ICD10 Code Diagnosis Note [id number] Jeannine Grajedato (Peds) [address] [place] [address] 04/17/2014 10:02:00 04/17/2014 11:41:54 Upper respiratory infection 40766495 Persistent cough [id number] Leonila (Peds) [address] [place], [place] [address] [address] 06/12/2014 10:52:10 06/12/2014 17:11:39 Well child [id number] Growth wnl. Anticipato ry guidance given. Boostrix given. Flu shot not available. Filled out physical for [employer] [facility]. [id number] [facility] (Peds) [address] [facility] [place] [address] 08/07/2014 11:06:41 08/07/2014 14:13:00 Heel pain 3516173 Appears to be likely due to an overuse injury while playing volleyball . Pt. likely has inflammati on in the soft tissues vs. ligaments. Recommend ibuprofen q 6- hours prn, apply heat to area and rest foot from excessive activity for 2 weeks. Notify if pain still persists, will consider PT. [id number] MD Leonila Cortez (Peds) [address] [place] [address] 10/22/2014 15:15:00 10/22/2014 17:49:27 Soft tissue lesion 459409684 Ddx includes a cyst vs. nodule vs. benign soft tissue tumor . Appears to be self-limte d. Will cont. to monitor. Pt. to notify if increases in size, becomes tender. If persists or gets larger, can refer to dermatolog y. [id number] MD Leonila Cortez (Peds) [address] [place] [facility] [place] [address] 11/13/2014 15:23:42 11/13/2014 18:24:29 Well child [id number] Growth wnl. Anticipato ry guidance given. Menveo and Gardasil given. Obesity 916810230 BMI greater than 95th %. Reviewed diet changes including reducing portions, increasing vegetables and fruits and increasing water intake, and getting 30 minutes of exercise at least 4 times a week. Will check screening labs. [id number] MD Leonila Cortez (Peds) [address] [place] [address] 11/26/2014 14:48:36 11/27/2014 10:57:05 Upper respiratory infection 64955008 Supportive care. Notify if sx. last more than 10 days or if pt. develops fever. Pharyngitis 819619857 Ra pid strep negative. Likely viral etiology. Symptomati c care. [id number] [facility] (Peds) [address] [place] [address] 12/07/2014 11:17:14 12/07/2014 12:32:48 Pharyngitis 429129573 possibly allergic in nature. Start Flonase and OTc loratadine . [id number] VEE Evanshalto (Peds) [address] [place] [address] 12/18/2014 14:07:17 12/18/2014 18:17:38 Acute sinusitis 16266318 Saline spray and augmentin. F/u in 2 weeks for recheck. Soft tissue lesion 113224660 Ddx includes a cyst vs. nodule vs. benign soft tissue tumor . Appears to be self-limte d. Appears to have increased in size slightly and tender on deep palpation. Feels like a linear cord under L skin on upper L back. If persists or gets larger, can refer to dermatolog y. Acute non- suppurative serous otitis media 671563817 Bilateral. R tm may have a perforatio n, difficult to assess due to cerumen. Recheck in 2 weeks [id number] MD Carmen Cortezhalto (Peds) [address] [place] [address] 01/03/2015 14:38:15 01/03/2015 18:17:50 Follow-up encounter [id number] Resolved sinusitis. No TM perforatio n seen. [id number] [facility] [address] [place] [address] 01/24/2015 14:38:06 01/24/2015 18:14:14 Pneumonia 849073840 J18.9 Improving. Pt. completed Zithromax and received rocephin in ER. Active or passive immunization 672510277 Z23 Flu shot and second gardasil given. Wheezing 14861181 R06.2 No past dx. for asthma. Ddx includes acute bronchitis vs. asthma. Albuterol inhaler prescribed in case of bronchospa sm. [id number] [facility] [address] [place] [address] 12/10/2015 14:13:45 12/10/2015 18:15:02 Well child 733904532 Z00.129 Growth wnl. Anticipato ry guidance given. Gardasil given. Will continue to monitor subcutaneo us lesion on upper back, consider referral to surgery if lesion increases in size or becomes painful. Overweight 483540770 E66 .3 Screening labs ordered. BMI at 97nth%. Discussed diet changes including reducing portion sizes, increase fruit and vegetable intake, drink 6 glasses water/day, and continue being active with sports. Acne 61381310 L70.[address] Will place on tretinoin for face, and BP 10 % for chest and back. [id number] MD Leonila Cortez (Peds) [address] [place] [address] 01/28/2016 11:24:57 01/28/2016 17:21:58 Venereal disease screening 370177121 Z11.3 Discussed abstinence . Recommende d appt. 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 Will check for STDs. Pt. receiving counseling . Encouraged open communicat ion between mom and patient. Active or passive immunization 563511238 Z23 [id number] MD Mark Gore ([place] [address]) [address] [facility] [place] [address] 06/22/2016 15:25:41 06/23/2016 08:41:58 Contraception care management 534224541 Z30.9 - Discussed contracept zackary options - Pt. desires IUD, will order Kyleena - Will return for insertion once device arrives [id number] MD Mark Gore ([place] [address]) [address] [facility] [place] [address] 07/01/2016 16:11:17 07/02/2016 09:39:05 Insertion of intrauterine contraceptive device 39647664 Z30.430 - RTC in 4 weeks for a string check [id number] ELLIE Gomez (Peds) [address] [place] [address] 07/09/2016 15:52:44 07/15/2016 15:32:05 Acute otitis media 4010723 H65.03 supportive care, keep nose clean , use saline spray q 1-2 hr, no sweet drink, limit juice to 4 oz/d, more water, milk only 2 cup/d, contact if not better after few days Acute uppe r respiratory infection 34658770 J06.9 keep nose cleaned, fever controlled with tylenol alternate with ibuprofen if temp >100 only, no cough med, warm fluid to drink, no juice, warm milk 15 oz/d advise to contact if worsening or febrile >100f, good hand hygiene Depression screening 171 471173 Z13.89 PHQ9 = 10/20, pt on prozac 10mg discuss about sleep 8-10 hrs, exercise 1 hr daily, vit D 1000 unit, milk 2 cups/d, mom to call and get apt for counsellin g at [facility] or school, encourage talking, eat as family at meals [id number] Humza Reyna MD [facility] ([place] [address]) [address] [facility] [address] [place] [address] 08/03/2016 16:09:02 08/04/2016 08:48:07 Subcutaneous contraceptive implant present 801665488 Z97.8 Removal of intrauterine device 15794318 Z30.432 Insertion of subcutaneous contraceptive 817820539 Z30.9 [id number] MD Leonila Cortez (Peds) [address] [place] [address] 08/11/2016 16:23:35 08/14/2016 14:00:32 Dermoid cyst of skin 313553828 D23.9 Ddx. includes sebaceous cyst. Will refer to plastic surgeon for further evaluation . Acne 18631874 L70.[address]. Will place on tretinoin for face, and BP 10 % for chest and back. Increased body mass index 30675925 E66.9 [id number] Burak Keen (Peds) [address] [place] [address] 08/12/2016 16:04:28 08/14/2016 16:08:54 Acute urticaria 126743401 L50.9 supportive care, good hygiene Venereal d isease screening 360141378 Z11.3 pt has IUD [id number] Poli Keen (Peds) [address] [place] [address] 12/11/2016 09:57:38 12/14/2016 11:17:04 Well child 490121174 Z00.129 Cellulitis of thigh 7705 4009 L03.846 [id number] JeanetteMD Leonila Hernandez (Peds) [address] [place] [address] 09/30/2017 13:45:48 10/05/2017 13:37:04 Hand wart 165315312 B07.8 Cryotherap y done on lesion in office. In a few days resume OTC wart remover liquid qhs. Apply vaseline on healthy tissue around the wart when applying the acid. Place bandaid on lesion overnight, rinse in am and file down with nail file. F/u in 2-3 weeks if no improvemen t. Soft tissue lesion 27250 3001 M79.9 Pt. seen by plastic surgeon at [facility], Dr. Erin raya 08/2016. Surgery scheduled, but then cancelled. Gave number to Dad to reschedule . Tinea pedis 2826598 B35. 3 Foot care reviewed. Will prescribe topical antifungal and anti-bacte rial. F/u in 2 weeks if no improvemen t. Increased body mass index 31722308 E66.9 BMI at 97 %. Reviewed 7-5-2-1-0 message. Screening labs ordered. Diet education 74179460 Z71.3 Exercises education, guidance, and counseling 339604403 Z71.82 [id number] Poli Keen (Peds) [address] [place] [address] 12/16/2017 15:58:52 12/17/2017 13:09:12 Well child 613639832 Z00.669 [id number] MD Leonila Cortez (Peds) [address] [place] [address] 12/28/2017 11:38:49 12/29/2017 15:38:15 Adjustment disorder with depressed mood 93895214 F43.21 PHQ-9 score 8 today. Pt. denies having any suicidal ideation or self-harm behaviors. Will restart Prozac at 10 mg and will inrease to 20 mg if tolerated in 2 weeks. Pt. to F/u in 2 weeks. To ER if pt. develops suicidal thoughts or increased feelings of depression . Recommende d daily mediation, healthy balanced diet, at least 8 hours sleep, and regular exercise daily. Will also refer to psychiatry . Emphasized importance of taking medication daily and consistent ly to see improvemen t. Encouraged to see NIA worker. Call CARES line immediatel y if develops suicidal thoughts. [id number] MD Leonila Cortez (Peds) [address] [place] [address] 04/12/2018 11:15:00 04/13/2018 14:19:15 Adjustment disorder with depressed mood 81594749 F43.21 Pt. denies having any suicidal ideation or self-harm behaviors. Will restart Prozac at 10 mg and will inrease to 20 mg if tolerated in 2 weeks. To ER if pt. develops suicidal thoughts or increased feelings of depression . Recommende d daily meditation , healthy balanced diet, at least 8 hours sleep, and regular exercise daily. Emphasized importance of taking medication daily and consistent ly to see improvemen t. Encouraged to see NIA worker. Call CARES line immediatel y if develops suicidal thoughts. Administra tion of influenza vaccine 00462616 Z23 Increased body mass index 98559269 E66.9 BMI at 97 %. Reviewed 5-2-1-0 message. Screening labs done in past. [id number] MD Mark Gore [address] [facility] [address] [place] [address] 06/08/2018 15:03:14 06/09/2018 15:02:24 High risk sexual behavior 647823036 Z72.51 [id number] MD Leonila Cortez (Peds) [address] [place] [address] 10/17/2018 16:25:01 10/18/2018 13:00:59 Well child 261829033 Z00.129 Growth wnl. Anticipato ry guidance given. Increased body mass index 76293682 E66.9 BMI at 98 %. Reviewed 5-2-1-0 message. Screening labs done in past. Diet education 56562296 Z71.3 Exercises education, guidance, and counseling 719788555 Z71.82 Allergic rhinitis 847576 04 J30.9 Refill on zyrtec given. Depressive disorder 2888 9007 F32.9 Pt. admitted to [place] 09/07-. Pt admitted for suicidal ideation. Pt. discharged on Lexapro. Pt. denies having any current suicidal or homicidal ideation. Pt. is not receiving any counseling . Will refill Lexapro. [id number] MD Mark Gore [address] OB [address] [facility] [address] [place] [address] 03/27/2020 13:46:50 03/28/2020 13:29:47 Removal of subcutaneous contraceptive done 3256093142 52611 Z98.890 Insertion of subcutaneous contraceptive 180406635 Z30.9 [id number] Denise Manjarrez APN, STAFF WRITER-C Leonila (Adult Med) [address] [place] [address] 09/23/2021 13:58:41 09/23/2021 19:19:37 Adult health examination 976659831 Z00.01 Encouraged routine LADLE REPAIRMAN, vision, dental exams, well balanced diet. Contact dermatitis 33152 004 L25.9 wide spread patches of a macular erythemato us rash to left cheek, pete arms, posterior trunk, no weeping or discharge, dwp topical cream and po steroids as well as testing, may need referral to safety leader Obesity 298814330 E66.9 advised low fat, low cholestero l diet, regular exercise and weight reduction. Tobacco user 432458443 Z 72.0 Smoking cessation encouraged . [id number] BRISEIDA Alvarenga [address] [facility] [address] [place] [address] 06/23/2022 13:50:50 06/24/2022 11:50:23 Removal of subcutaneous contraceptive done 4858669123 64015 Z98.890 Discussed all options. Pt opts for removal. informed consent obtained and implant removed. PT educated on site care and notified when to call office. High risk sexual behavior 542074225 Z72.51 urine collected and sent to lab. Counseled on safe sex, condom use and STD precaution s discussed screening completed per patient's request Childhood obesity 943022 003 E66.8 Pt educated on risks and importance of lifestyle modificati ons. Pt reports will continue to follow up with PCP. Family messi nning surveillance 725730623 Z30.09 Discussed contracept ion methods. Patient not interested in any methods other than condoms at this time. Patient aware of her increased risk for unplanned . Patient advised to do 400 mcg folic acid supplement to help prevent against NTD if unplanned occurs [id number] Denise Manjarrez APN, NIMESH Keen (Adult Med) [address] [place] [address] 03/22/2023 12:02:23 03/23/2023 14:40:22 Paresthesia of bilateral hands 486541820 R20.2 advised night splints, naproxen, exercisesw ill try conservati ve mgmt for 8 weeks then if not improved, will order nerve studies Obesity 262387862 E66.9 advised low fat, low cholestero l diet, regular exercise and weight reduction. Pain of ri ght elbow joint 8452713190 9499224 M25.521 naproxen advised, ice, stretching , reduce phone use Pain of le ft elbow joint 1667684113 0220578 M25.522 naproxen advised, ice, stretching , reduce phone use [id number] Denise Manjarrez APN, NIMESH Keen (Adult Med) [address] [place] [address] 05/27/2023 12:03:24 05/31/2023 12:46:03 Paresthesia of bilateral hands 175185485 R20.2 advised night splints, naproxen, exercisesw ill try conservati ve mgmt for 8 weeks then if not improved, will order nerve studies Obesity 790623496 E66.9 advised low fat, low cholestero l diet, regular exercise and weight reduction. Smoker 24172567 F17.200 Smoking cessation encouraged . Depressive disorder 3548 9007 F32.A hx of depression also recovering addict-met h, still uses a few times a yeardeclin es treatment options Superficia l folliculitis 653035339 L73.9 inflamed and open spot on bikini line, no drainagest art abxhygeine advised [id number] TAHIRA Walker [address] OB [address] [facility] [address] [place] [address] 05/17/2024 10:36:19 05/18/2024 09:30:54 Positive screening for depression on PHQ-9 (Patient Health Questionnaire 9) 0290319336 52617 Z13.31 Denies thoughts of self harm or harming others. Pt instructed to call 911 if depression worsens or go to ED. Obesity 323447609 E66.9 Discussed diet and weight loss. Discussed making healthier food choices and increasing exercise. Discussed going to a meat curer. Smoker 42254725 F17.200 smoking cessation informatio n give. pt understand s the risk factors associated with smoking including heart disease, blood clots, stroke and increase risks for cancers. Menorrhagia 220464339 N9 2.0 Will order pelvic ultrasound . Pt advised on treatment options for fibroids, if found on u/s including but not limited to control use. Pt educated on other causes of menorraghi a including but not limited to constipati on or bladder issues, hormone imbalances , stress, menopausal symptoms. Pt verbalized understand ing. Will follow up pending results. Health Concerns Section Related Observation LastModified by Organization Detai ls LastModified Time None Recorded Concern Status LastModified by Organization Details LastModified Time None Recorded Advance Directives Directive N: Payers Encounter Date Sequence Insurance Name Policy Number Policy Ceballos Covered Member ID Ceballos Member ID Guarantor Name 09/23/2021 2 *SELF PAY* Samuel Hightower 09/23/2021 1 [employer] [place] ON [place] AFTER 2020 (MEDICAID REPLACEMENT - HMO) Alie Hightower [id number] Alie Hubernd 06/23/2022 1 [employer] ([place] REPLAC[place] - [place]MO) Alie Hightower [id number] Alie Butler Campbell 03/22/2023 1 [employer]AC[place] - [place]MO) Alie Hightower [id number] Alie Butler Campbell 05/27/2023 1 [employer] [place] 2020 ([place] REPLAC[place] - HMO) Alie Hightower [id number] Alie Hightower Notes Date Note Type Note Provider Name and Address Organization Details Recorded Time 09/23/2021 text/html Here to est care as adult, has current issue with skin, 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 Pt denies issues with nexplanon but no longer wants implant. pt denies any complaints today. BRISEIDA Alvarenga Attn: Accounting,[address] [place], [place], [address] [place] [address], [facility] 06/23/2022 14:51:50 03/22/2023 text/html Burning sensatio n from elbow to fingers. On and off pain started over a year, happening more frequently. not losing barrel raiser but numb a lot Denise Manjarrez APN, KESHIA-C Attn: Accounting,[address] [place], [address] [place] [address], [facility] 05/27/2023 12:21:32 05/27/2023 text/html Discuss possible carpal tunnel in both wrist and elbows. Pt states one of her stretch sid under her stomach looks infected- states green pus has came out of it. Denise Manjarrez APN, FNP-C Attn: Accounting,[address] [place], [address] [place] [address], [facility] 05/27/2023 12:33:01 05/17/2024 text/html Annual GYNReport ed bypatient.Menstrual cycle:Severe dysmenorrhea;Menorrh agia Urinary symptoms:No hematuria; No incontinence Vulva:No genital lesion Vagina:Normal vaginal discharge Breast:No breast pain; No breast lump; No nipple discharge Sexual complaints:No sexual complaints; No pain during intercourse; Normal libido Menopausal Symptoms:No menopausal symptoms; Normal vaginal lubrication Psychological symptoms:No depression; No anxiety; No PMDD Preventive measures:Encourage self breast examination; Encourage regular exercise; Encourage no tobacco use; Encourage regular mammograms starting age [age] yo fe here for menorrhagia- states she has had cycle five times in past two months. In last 30 days it has been two times. and previous 30 days it was 3 times, states cramps that will bring her to her knees - does not want any form of control, would like to ttc- hx obesity, smoker Yenifer Jones, STAFF WRITER- Attn: Accounting,[address] [facility], [place], [address], [facility] 05/17/2024 11:38:35 OBGyn Episode No OBEpisode recorded.
--- OUTSIDE RECORDS SUMMARY | 2024-07-02 10:44 | XMS_ITS | Clinical Summary ---
Author Organization [facility] Address [address] [place] [address] Care Team Providers Care Silk Winding Machine Operator Name Role Phone Denise Callahan NP Primary Care Provider Allergies Active Allergy Reactions Criticality Noted Date [...] Date Numbness and tingling of hand 06/05/2023 Encounters Date Type Department Care Team Description 06/01/2024 10:45 AM MECHANICAL PRODUCT ENGINEER - 06/01/2024 11:59 PM MECHANICAL PRODUCT ENGINEER Hospital Encounter [facility] [address] [place] [address] Excessive and frequent menstruation with regular cycle Discharge Disposition: Discharge to home or self care from Last 3 Months Surgical History Surgery Date Site/Laterality Comments CYST REMOVAL Social History Tobacco Use Types Packs/Day Years [...] on file Legal Sex Female 5:58 AM MECHANICAL PRODUCT ENGINEER Gender Identity Female 11/10/2023 7:36 PM CDT Sexual Orientation Something else 11/10/2023 7: 36 PM CDT Obstetrics History Last Filed Vital Signs Vital Sign Reading [...] 07/24/2022 5:32 AM CDT Plan of Treatment Health Maintenance Due Date Last Done Comments Depression Screening 2003 Hepatitis C Screening 2003 Pneumococcal vaccine <65 (1 of 1 - PPSV23) 08/24/2009 03/10/2005, 03/10/2004, 01/09/2004, Additional history exists Meningococcal B Vaccine (1 of 2 - Standard) 2019 Regular Well Visit/Exam 18-64 08/24/2021 Influenza Vaccine (#1) 2023 8, 01/28/2016, 01/24/2015, Additional history exists DTaP/Tdap/Td Vaccine (7 - Td or Tdap) 06/12/2024 06/12/2014, 12/07/2008, 12/07/2008, Additional history exists Hepatitis B Screening Completed 03/10/2004 , 01/09/2004, 2003, Additional history exists Varicella Vaccines Completed 10/18/2007, 09/12/2004 Meningococcal Vaccine Aged Out 11/13/2014 No venita ben eligible based on patient's age to complete this topic HPV Vaccines Completed 12/10/2015, 04/2014, 11/13/2014 Procedures Procedure Name Priority Date/Time Associated Diagnosis Comments US PELVIS W ENDOVAGINAL Schedule Routine, Read Routine (OP Routine) 06/01/2024 12:12 PM MECHANICAL PRODUCT ENGINEER Excessive and frequent menstruation with regular cycle from Last 3 Months Results * US Pelvis W Endovaginal (06/01/2024 12:12 PM MECHANICAL PRODUCT ENGINEER) Anatomical Region Laterality Modality Pelvis N/A Ultrasound 06/05/2024 10:2 6 AM MECHANICAL PRODUCT ENGINEER Narrative 06/05/2024 10:27 AM MECHANICAL PRODUCT ENGINEER EXAM DESCRIPTION: US PELVIS W ENDOVAGINAL REASON [...] Bola Lyons M.D. CH: GLEN Report ID: [id number] Reading Location: [place] [address] Procedure Note Bola Lyons Jr., MD - [...] 06/05/2024 10:27 AM - Electronically signed by oBla Lyons M.D. CH: Report ID: [id number] Reading Location: [id number] Yenifer Jones NETWORKS COMPUTER CONSULTANT IMG US PROCEDURES Final Resul t from Last 3 Months [facility] [place] [facility] AETNA BETTER [place] AETNA BETTER [facility] Care Teams Silk Winding Machine Operator Relationship Specialty Start Date End Date [place], Denise Noyola NP [address] [address] [place] [id number] PCP - General Nurse Practitioner 05/27/23
--- OUTSIDE RECORDS SUMMARY | 2024-07-02 10:44 | XMS_ITS | Clinical Summary ---
Author Organization [facility] Address [address] [place] [address] Phone Care Team Providers Care Director Gift Name Role Phone Jeanette Webster MD Primary Care Provider [phone] Allergies No known active allergies Medications FLUoxetine (PROZAC) 10 MG Capsule Take 10 mg by mouth daily. Active Social History Tobacco Use Types Packs/Day Years Used Date Smoking Tobacco: Every Day Cigarettes Alcohol Use Standard Drinks/Week Comments No 0 (1 standard drink = 0.6 oz pur e alcohol) Comments No Sex and Gender Information Value Date Recorded Sex Assigned at Not on file Legal Sex Female 2:50 PM TIE IN HAND Gender Identity Not on file Sexual Orientation Not on file Last Filed Vital Signs Vital Sign Reading Time Taken Comments Blood Pressure 105/61 09/25/2016 11:32 PM CDT Pulse 70 09/25/2016 11:32 PM CDT Temperature 35.9 C (96.7 F) 09/25/2016 11:32 PM CDT Respiratory Rate 20 09/25/2016 11:32 PM CDT Oxygen Saturation 98% 09/25/2016 11:32 PM CDT Inhaled Oxygen Concentration - - Weight 77.1 kg (170 lb) 09/25/2016 11:32 PM CDT Height 162.6 cm (5' 4 ) 09/25/2016 11:32 PM CDT Body Mass Index 29.18 09/25/2016 11:32 PM CDT Plan of Treatment Health Maintenance Due Date Last Done Comments Hepatitis C Virus (HCV) Screening 2003 Meningococcal B Immunization (1 of 2 - Standard) 2019 Influenza Immunization (#1) 12/26/202303/26, 01/28/2016, 01/24/2015, Additional history exists SARS-COV-2 Immunization (2023-25 season) 2023 Respiratory Syncytial Virus (RSV) Immunization (Adult) (1 - 1-dose 75+ series) 08/24/2078 Hepatitis B Immunization Completed 004, 01/09/2004, 2003, Additional history exists Pneumococcal Immunization Combined Aged Out 03/10/2005, 03/10/2004, 01/09/2004, Additional history exists No longer eligible based on patient's age to complete this topic DTaP/Tdap/Td Immunization Discontinued 2014, 12/07/2008, 03/10/2005, Additional history exists TdaP Immunization Completed 06/12/2014 Meningococcal Immunization (ACWY) Aged Out 11/13/2014 No longer eligible based on patient's age to complete this topic Human Papillomavirus (HPV) Immunization Completed 12/10/2015, 01/24/2015, 11/13/2014 Rotavirus Immunization Aged Out No lo nger eligible based on patient's age to complete this topic Insurance MEDICAID [employer] Care Teams Director Gift Relationship Specialty Start Date End Date Jeanette Webster MD [address] [place] [address] PCP - General Pediatrics 09/26/16
--- OUTSIDE RECORDS SUMMARY | 2024-07-02 10:44 | XMS_ITS | Clinical Summary ---
Author Organization [facility] Address [address] [place] [address] Care Team Providers Care Clinical Research Scientist Name Role Phone Jeanette Webster MD Primary Care Provider [phone] Source Comments [facility],non-owned Affiliates and Associated Physician Practices is amultiple site organization consisting of ambulatory clinics and hospital sitesin [place], [place], [place] and [place]. This disclosure is being madepursuant to the Care Everywhere program and may not contain all information available regarding this patient. Last updated 18.[facility] KitCheck Allergies No known active allergies Medications * Be aware that medications may not be up to date on this document. Alwaysverify current medications with the patient. Medication Sig Dispensed Refills Start Date End Date Status Other Active acetaminophen (TYLENOL) 325 MG tablet Take 2 tablets by mouth every 6 hours as needed for Pain Maximum allowable Acetaminophen amount = 4 Grams (4000 mg) / 24 hours. 40 tablet 12/22/2017 Active Additional Information Patient not taking.Reported on 09/28/2019 ibuprofen (MOTRIN) 200 MG tablet Take 1-2 tablets by mouth every 6 hours as needed for Pain 50 tablet 12/22/2017 Active Additional Information Patient not taking.Reported on 09/28/2019 hydrocortisone (HYTONE) 2.5 % ointment Apply to affected area 2 times daily as needed 30 g 10/23/2019 Active Social History Tobacco Use Types Packs/Day Years Used Date Smoking Tobacco: Every Day Smokeless Tobacco: Never Alcohol Use Standard Drinks/Week Comments Never 0 (1 standard drink = 0.6 oz pur e alcohol) AUDIT-C Answer Date Recorded Q1: How often do you have a drink containing alc ohol? Never 09/28/2019 Average Number of Drinks Not on file 020 Frequency of Binge Drinking Not on file 07/2019 Sex and Gender Information Value Date Recorded Sex Assigned at Female 03/16/2024 3:38 PM NEWS DIRECTOR Gender Identity Female 03/16/2024 3:38 PM NEWS DIRECTOR Sexual Orientation Something else 03/16/2024 3: 38 PM NEWS DIRECTOR Last Filed Vital Signs Vital Sign Reading Time Taken Comments Blood Pressure 130/88 10/23/2019 12:29 AM CDT Pulse 108 10/23/2019 12:29 AM CDT Temperature 36.8 C (98.3 F) 10/23/2019 12:29 AM CDT Respiratory Rate 18 10/23/2019 12:29 AM CDT Oxygen Saturation 100% 10/23/2019 12:29 AM CDT Inhaled Oxygen Concentration - - Weight 74.9 kg (165 lb 2 oz) 10/23/2019 12:29 AM CDT Height 165 cm (5' 4.96 ) 09/28/2019 11:18 PM CDT Body Mass Index - - Plan of Treatment Health Maintenance Due Date Last Done Comments HIV SCREENING 08/24/2018 HPV VACCINE (1 - 3-dose series) 08/24/2018 CHLAMYDIA/GONORRHEA SCREENING 2019 MENINGOCOCCAL (Group B) VACC INE (1 of 2 - Standard) 2019 HEPATITIS C SCREENING 08/20/2021 DTAP/TDAP/TD VACCINES (1 - Tdap) 08/24/2022 HEPATITIS B VACCINE (1 of 3 - 19+ 3-dose series) 08/24/2022 COVID-19 VACCINE ( - 2023-2 5 season) 2023 INFLUENZA VACCINE (#1) 2023 DEPRESSION SCREENING 04/26/2024 ZOSTER VACCINE (1 of 2) 08/24/2053 HIB VACCINE Aged Out No longer eligi ble based on patient's age to complete this topic MENINGOCOCCAL VACCINE Aged Out No venita ben eligible based on patient's age to complete this topic PNEUMOCOCCAL VACCINE Aged Out No long er eligible based on patient's age to complete this topic Care Teams Clinical Research Scientist Relationship Specialty Start Date End Date Jeanette Webster MD [address] [place] [address] PCP - General Pediatrics 08/24/16
--- OUTSIDE RECORDS SUMMARY | 2024-07-02 10:44 | XMS_ITS | Patient Health Summary ---
Author Organization [facility] Address [address] [place] [address] Care Team Providers Care Silk Spooler Name Role Phone Jeanette Webster MD Primary Care Provider [phone] Note from [facility],non-owned Affiliates and Associated Physician Practices is amultiple site organization consisting of ambulatory clinics and hospital sitesin [place], [place], [place] and [place]. This disclosure is being madepursuant to the Care Everywhere program and may not contain all information available regarding this patient. Last updated 18.[facility] Allergies No known active allergies Medications * Be aware that medications may not be up to date on this document. Alwaysverify current medications with the patient. * Other * acetaminophen (TYLENOL) 325 MG tablet(Started 12/22/2017) Take 2 tablets by mouth every 6 hours as needed for Pain Maximum allowable Acetaminophen amount = 4Grams (4000 mg) / 24 hours. * ibuprofen (MOTRIN) 200 MG tablet(Started 12/22/2017) Take 1-2 tablets by mouth every 6 hours as needed for Pain * hydrocortisone (HYTONE) 2.5 % ointment(Started 10/23/2019) Apply to affected area 2 times daily as needed Social History Tobacco Use Types Packs/Day Years [...] Sex Assigned at Female 03/16/2024 3:38 PM REPAIRER TYPEWRITER Gender Identity Female 03/16/2024 3:38 PM REPAIRER TYPEWRITER Sexual Orientation Something else 03/16/2024 3: 38 PM REPAIRER TYPEWRITER Last Filed Vital Signs Vital Sign Reading [...] PM CDT Body Mass Index - - Procedures * PATHOLOGY TISSUE EXAM (STL)(Performed 12/22/2017) Performed for Abdominal wall lump * ENDOTRACHEAL TUBE NOTE(Performed 12/22/2017) * EXCISION LESION ARM/SHOULDER(Performed 12/22/2017) Performed for Abdominal wall lump * HCG URINE QUALITATIVE - POCT (IP) INTERFACED(Performed 12/22/2017) * HCG URINE QUAL POCT NOTIFICATION(Performed 12/22/2017) Performed for Neck mass * CBC W AUTO DIFFERENTIAL(Performed 09/30/2016) * PT PTT PANEL(Performed 09/30/2016) Results * GROSS + MICRO EXAM (STL) (12/22/2017 1:44 PM CDT) Case Report Surgical Pathology Report Case: [id number] Authorizing Provider: Nickie Barbosa MD Collected: 12/22/2017 01:44 PM Ordering Location: [facility] Received: 12/22/2017 02:46 PM Pathologist: Jaleel Martinez MD Specimen: Back Lesion , left upper back lesion 12/23/2017 6:11 PM [facility] Final Diagnosis SOFT TISSUE, LEFT UPPER BACK LESION, EXCISION: - EPIDERMOID CYST (EPIDERMAL INCLUSION CYST). - FOREIGN BODY GIANT CELL REACTION, CONSISTENT WITH RUPTURE. 12/23/2017 6:11 PM [facility] Clinical History The patient is a 12-year-old girl who underwent excision of a right upper back lesion. 12/23/2017 6:11 PM [facility] Gross Description Submitted fresh in one container for gross and microscopic examination labeled with the patient's name, Alie Hightower, and left upper back lesion is a 1.5 x 1 x 0.5 cm ovoid mass of pink-menjivar soft tissue. The specimen is bisected, and cut surface reveals a 0.9 x 0.4 x 0.4 cm cyst containing white keratinaceous material. Also present in the same container is a 1.1 x 0.4 x 0.2 cm fragment of pink-menjivar rubbery soft tissue. The specimen is entirely submitted in cassette A1. (CT/na) 12/23/2017 6:11 PM [facility] Microscopic Description 1 H&E. Sections show fibroadipose connective tissue containing a keratin-filled cyst lined by stratified squamous epithelium (with a granular layer), devoid of cutaneous adnexa in its wall, and associated with florid foreign body giant cell reaction. (DSB) 12/23/2017 6:11 PM [facility] Disclaimer The performance characteristics of all immunohistochemical and indirect immunofluorescence stains (if any) cited in this report were determined by the Histopathology Laboratory of [facility]. Some of these tests were developed by our own laboratory and have not been cleared or approved by the US Food and Drug Administration (FDA). The FDA does not require this test to go through premarket FDA review. These tests are used for clinical purposes. They should not be regarded as investigational or for research. This laboratory is certified under the Clinical Laboratory Improvement Amendments (CLIA) as qualified to perform high complexity clinical laboratory testing. This case has been personally reviewed and interpreted by the attending (teaching) pathologist. 12/23/2017 6:11 PM CDT [facility] Embedded Images 12/23/2017 6:11 PM CDT [facility] Pathology/Cytolo gy LESION SPECIMEN / Unknown 12/22/2017 1:44 PM CDT 12/22/2017 2:46 PM CDT Nickie Barbosa MD LAB - PATHOLOGY/C YTOLOGY ORDERABLES Performing Organization Address City/[facility]/ZIP Co de Phone Number [facility] [address] [place] [address] * HCG URINE QUALITATIVE - POCT (IP) INTERFACED (12/22/2017 12:15 PM CDT) HCG Qual Urine Negative Negative 12/22/2017 12:18 PM CDT [facility] Urine URINE / Unknown 12/22/2017 1 2:15 PM CDT 12/22/2017 12:18 PM CDT Nickie Barbosa MD LAB - POINT OF CA RE ORDERABLES Performing Organization Address [facility] Co de Phone Number [facility] [address] [place] [address] * HCG URINE QUAL POCT NOTIFICATION (12/22/2017 12:08 PM CDT) Comment Notification Label Only - See Separate Report 12/22/2017 2:00 PM CDT [facility] Urine URINE / Unknown 12/22/2017 1 2:08 PM CDT 12/22/2017 12:08 PM CDT Nickie Barbosa MD LAB - URINALYSIS ORDERABLES Performing Organization Address City/[facility] Co de Phone Number [facility] [address] [place] [address] * (ABNORMAL) PT PTT PANEL (09/30/2016 1:35 AM CDT) Pathologist [facility] PT 12.0(H) 9.5 - 11.6 sec 09/30/2016 2:17 AM CDT [facility] INR 1.2(H) 0.9 - 1.1 09/30/2016 2:17 AM CDT [facility] PTT 24.7 21.0 - 32.0 sec 09/30/2016 2:17 AM T [facility] Blood BLOOD SPECIMEN / Unknown 09/30/2016 1:35 AM CDT 09/30/2016 1:57 AM CDT Narrative [facility] - 09/30/2016 2:17 AM CDT Conventional Warfarin Anticoagulant Therapy: INR Reference Range: 2.0-3.0 Intensive Warfarin Anticoagulant Therapy: INR Reference Range: 2.5-3.5 Heparin Therapeutic Range for PTT: 47.7 - 68.6 seconds. Adama Stephens MD LAB - COAGULATION OR DERABLES Performing Organization Address City/State/[facility] de Phone Number [facility] [place] [address] * (ABNORMAL) CBC W AUTO DIFFERENTIAL (09/30/2016 1:35 AM CDT) Pathologist [facility] WBC 8.4 4.5 - 14.5 x10E9/L 09/30/2016 2:01 AM CDT [facility] WBC Corrected x10E9/L 09/30/2016 2:01 AM T [facility] RBC 4.39 4.10 - 5.10 x10E12/L 09/30/2016 2:01 AM T [facility] Hemoglobin 13.6 12.0 - 16.0 gm/dL 09/30/2016 2:01 AM T [facility] Hematocrit 39.8 36.0 - 47.0 % 09/30/2016 2:01 AM [facility] MCV 90.7 78.0 - 98.0 fl 09/30/2016 2:01 AM CDT [facility] MCH 31.0 25.0 - 35.0 pg 09/30/2016 2:01 AM T [facility] MCHC 34.2 31.0 - 37.0 gm/dL 09/30/2016 2:01 AM [facility] Platelet Count 264 100 - 400 x10E9/L 09/30/2016 2:01 AM [facility] RDW-CV 12.6 11.5 - 14.0 % 09/30/2016 2:01 AM [facility] MPV 9.6(H) 6.0 - 9.5 fl 09/30/2016 2:01 AM T [facility] Neutrophils % 51.9 24.0 - 66.0 % 09/30/2016 2:01 AM [facility] Lymphocytes % 33.0 22.0 - 61.0 % 09/30/2016 2:01 AM [facility] Monocytes % 7.9 3.0 - 15.0 % 09/30/2016 2:01 AM [facility] Eosinophils % 6.5 0.0 - 10.0 % 09/30/2016 2:01 AM [facility] Basophils % 0.5 % 09/30/2016 2:01 AM [facility] Immature Granulocytes 0.2 % 09/30/2016 2:01 AM [facility] Neutrophil Absolute 4.34 x10E9/L 09/30/2016 2:01 AM [facility] Lymphocytes Absolute 2.76 x10E9/L 09/30/2016 2:01 AM [facility] Monocytes Absolute 0.66 x10E9/L 09/30/2016 2:01 AM [facility] Eosinophils Absolute 0.54 x10E9/L 09/30/2016 2:01 AM [facility] Basophils Absolute 0.04 x10E9/L 09/30/2016 2:01 AM [facility] Immature Granulocytes Absolute 0.02 x10E9/L 09/30/2016 2:01 AM [facility] nRBC Auto 0 /100 WBC 09/30/2016 2:01 AM [facility] Blood BLOOD SPECIMEN / Unknown 09/30/2016 1:35 AM CDT 09/30/2016 1:57 AM CDT Adama Stephens MD LAB - HEMATOLOGY ORD ERABLES [facility] [address] [place] [id number] Care Teams Silk Spooler Relationship Specialty Start Date End Date Jeanette Webster MD [address] [place] [id number] PCP - General Pediatrics 08/24/16
--- OUTSIDE RECORDS SUMMARY | 2024-07-02 10:44 | XMS_ITS | Referral Summary ---
Author Organization [facility] Address [address] [place] [address] Care Team Providers Care Mobile Game Engineer Name Role Phone Jeanette Webster MD Primary Care Provider Source Comments [facility],non-owned Affiliates and Associated Physician Practices is amultiple site organization consisting of ambulatory clinics and hospital sitesin [place], [place], [place] and [place]. This disclosure is being madepursuant to the Care Everywhere program and may not contain all information available regarding this patient. Last updated 18.[facility] Allergies No known active allergies Medications * [...] Sex Assigned at Female 03/16/2024 3:38 PM DIRECTOR OF MATH Gender Identity Female 03/16/2024 3:38 PM DIRECTOR OF MATH Sexual Orientation Something else 03/16/2024 3: 38 PM DIRECTOR OF MATH Last Filed Vital Signs Vital Sign Reading [...] PM CDT Body Mass Index - - Functional Status Functional Status Response Date of Assess ment Is person deaf or have serious hearing difficult y? No 12/22/2017 Is person blind or have serious difficulty seein g? No 12/22/2017 Does person have serious dif ficulty walking/climbing stairs? No 12/22/2017 Does person have difficulty dressing/bathing? No 12/22/2017 Does person have difficulty doing errands alone? No 12/22/2017 Cognitive Status Response Date of Assessm ent Does person have difficulty concentrating/remembering/making decisions? No 12/22/2017 Plan of Treatment Not on file Care Teams Mobile Game Engineer Relationship Specialty Start Date End Date Jeanette Webster MD [address] [place] [address] PCP - General Pediatrics 08/24/16
[2024-07-02 10:46] VITALS: BP 134/81; PULSE 94; RESP 20; TEMP 36.7; O2SAT 100
--- NOTE | 2024-07-02 11:19 | ED_ITS ---
HPI - General Adult General Chief complaint: Urogenital-Female Stated complaint: poss UTI Source: patient Mode of arrival: ambulatory Limitations: no limitations History of Present Illness HPI narrative: Pt presents for evaluation of urinary symptoms for the past 4-5 days. She reports urinary urgency, frequency, hesitancy and mild dysuria. She denies any fever, chills, nausea, vomiting, abdominal pain or low back pain. She is not on control. Denies vaginal bleeding or discharge. She would like to be tested for STI's. Related Data Home Medications ?Medication ?Instructions ?Recorded ?Confirmed ?Last Taken ?Type No Home Medications 07/02/24 07/02/24 Unknown History Allergies Allergy/AdvReac Type Severity Reaction Status Date / Time amphetamine (From Adderall) Allergy Rash Verified 07/02/24 11:00 dextroamphetamine (From Allergy Rash Verified 07/02/24 11:00 Adderall) Review of Systems Review of Systems: CONSTITUTIONAL: Denies fever, chills, or sweats. EYES: Denies visual changes, redness, or discharge. ENT: Denies rhinorrhea, congestion, sore throat, or otalgia. CARDIOVASCULAR: Denies chest pain, palpitations, or edema. RESPIRATORY: Denies cough or dyspnea. GASTROINTESTINAL: Denies abdominal pain, nausea, vomiting, or diarrhea. GENITOURINARY: Reports urinary frequency, hesitancy, urgency, and mild dysuria. Denies vaginal bleeding or discharge. SKIN: Denies rash or itching. MUSCULOSKELETAL: Denies back pain, joint pain, or myalgia. NEUROLOGIC: Denies headache, numbness, dizziness, or weakness. PSYCHIATRIC: Denies anxiety or depression. [facility] Past Medical History Medical History Epidermoid cyst of skin of back Surgical History Surgical History No pertinent past surgical history Family History Family History Mother Family history non-contributory Social History Social History Smoking packs per day: 0.5 Smoking cigarettes per day: 10.0 Years smoked: 9 Smoking pack-years: 4.50 Smoking status: Current every day smoker Substance use: current Substance use type: methamphetamine Gender identity (if verbalized by the patient): Female Sexual Orientation (if Verbalized by the Patient): Straight or Heterosexual Spiritual care concerns: No Exam Narrative: GENERAL: Well-appearing, well-nourished, and in no acute distress. HEAD: Normocephalic, atraumatic. EYES: PERRLA and EOMI. ENT: Nares clear, no rhinorrhea or epistaxis. Mucous membranes moist. Oropharynx without tonsillar hypertrophy exudate or other lesions. Bilateral TMs pearly balderas nonbulging NECK: Supple. No adenopathy or masses. No carotid bruits or JVD CHEST: Clear to auscultation. No respiratory distress. No wheezes rales or rhonchi HEART: Regular rate and rhythm. No murmur heard. Normal peripheral pulses. ABDOMEN: Soft, nontender, nondistended, normal active bowel sounds. EXTREMITIES: Normal range of motion. No edema. SKIN: Warm, dry, no rash. NEURO: No focal deficits. Alert and oriented x3. PSYCH: Normal mood and affect. Course Course Emergency Course: This is a 18-year-old female who presented for evaluation of urinary symptoms. Urine today consistent with UTI as it is positive for nitrites. Will treat with Macrobid and Pyridium. Increase hydration. Vzyq-btl-bqtsket agents for symptom management. Follow up with primary provider. Go to the ER for worsening symptoms. Patient in agreement with plan of care. Level of Care: Express Care Visit Vital Signs Vital signs: Vital Signs Temperature 36.7 C 07/02/24 10:46 Pulse Rate 94 07/02/24 10:46 Respiratory Rate 20 07/02/24 10:46 Blood Pressure 134/81 07/02/24 10:46 Pulse Oximetry 100 07/02/24 10:46 Oxygen Delivery Room Air 07/02/24 10:46 Temperature 36.7 C 07/02/24 10:46 Pulse Rate 94 07/02/24 10:46 Respiratory Rate 20 07/02/24 10:46 Blood Pressure 134/81 07/02/24 10:46 Pulse Oximetry 100 07/02/24 10:46 Oxygen Delivery Room Air 07/02/24 10:46 Medical Decision Making Vital Signs Vital Signs: Vital Signs Temperature 36.7 C 07/02/24 10:46 Pulse Rate 94 07/02/24 10:46 Respiratory Rate 20 07/02/24 10:46 Blood Pressure 134/81 07/02/24 10:46 Pulse Oximetry 100 07/02/24 10:46 Oxygen Delivery Room Air 07/02/24 10:46 Temperature 36.7 C 07/02/24 10:46 Pulse Rate 94 07/02/24 10:46 Respiratory Rate 20 07/02/24 10:46 Blood Pressure 134/81 07/02/24 10:46 Pulse Oximetry 100 07/02/24 10:46 Oxygen Delivery Room Air 07/02/24 10:46 Lab Data Labs: Lab Results 07/02/24 Range/Units 11:16 POC Urine Color Yellow POC Urine Clarity Cloudy POC Urine pH 6.0 POC Ur Specif Parsons 1.030 POC Urine Protein 2+ (Negative) POC Ur Glucose (UA) Negative (Negative) POC Urine Ketones Negative (Negative) POC Urine Blood 1+ (Negative) POC Urine Nitrite Positive (Negative) POC Urine Bilirubin Negative (Negative) POC Urine Urobilinogen 0.2 POC U Leukocyte Esteras 1+ (Negative) POC Urine HCG, Qual Negative (Negative) Discharge Plan Discharge Clinical Impression: UTI (urinary tract infection) Patient Disposition: Home, Self-Care Condition: Stable Instructions: Antibiotic Form, Urinary Tract Infection in Women (ED) Patient Language: Estonian Prescriptions: New nitrofurantoin monohyd/m-cryst [Macrobid] 100 mg capsule 100 mg PO Q12H 7 Days Qty: 14 0RF Rx Instructions: must administer with a meal/food phenazopyridine [Pyridium] 200 mg tablet 200 mg PO TID Qty: 6 0RF No Action No Home Medications Follow-up/Referrals: Callahan,Denise Suazo APN [Primary Care Provider] - Time of Disposition: 11:26
[2024-07-02 11:28] LABS: BEDSIDEPREGUCG Negative (Negative); EDUAAPPEAR Cloudy; EDUABILI Negative (Negative); EDUABLOOD 1+ (Negative); EDUACOLOR1 Yellow; EDUAGLUCOSE Negative (Negative); EDUAKETONE Negative (Negative); EDUALEUKO 1+ (Negative); EDUANITRATE Positive (Negative); EDUAPROTEIN 2+ (Negative); EDUAUROBILI 0.2
[2024-07-02 21:50] LABS: Trichomonas Vag PCR NOT DETECTED (NOT DETECTE)
[2024-07-02 22:13] LABS: Chlamydia trachomatis NOT DETECTED (NOT DETECTE); Neisseria gonorrhoeae PCR NOT DETECTED (NOT DETECTE)
== END 2024-07-02 11:27 | disposition home or self-care (01) ==
PROVIDERS: Emergency Provider Nurse Practitioner; PCP Nurse Practitioner Family
DX: N39.0 Urinary tract infection, site not specified (principal); Z11.3 Encounter for screening for infections with a predominantly sexual mode of transmission; F17.210 Nicotine dependence, cigarettes, uncomplicated; F15.90 Other stimulant use, unspecified, uncomplicated
CPT/HCPCS: 81003; 81025; 87086; 87186; 87491; 87591; 87661; 99213; G0463

== ENCOUNTER 2024-08-22 12:34 | Emergency (ER) | payer BC, SELFPAY ==
[2024-08-22 12:40] VITALS: BP 137/71; PULSE 81; RESP 16; TEMP 36.6; O2SAT 100
--- NOTE | 2024-08-22 12:51 | ED.URI ---
HPI - URI/Sore Throat General Chief Complaint: Upper Respiratory Infection Stated Complaint: Can't Smell and Taste/Ear Pain Time Seen by Provider: 08/22/24 12:51 Source: patient and RN notes reviewed Mode of arrival: ambulatory Limitations: no limitations History of Present Illness HPI Narrative: 18-year-old female presented for complaint of nasal congestion and drainage, cough and hoarse voice. Onset 10 days. Over the last 2 days she has lost her taste and smell. Denies shortness of breath, wheezing nausea, vomiting, fevers or lethargy. Patient smokes cigarettes and meth daily. MD elicited complaint: cough Related Data Allergies Allergy/AdvReac Type Severity Reaction Status Date / Time amphetamine (From Adderall) Allergy Rash Verified 08/22/24 12:48 dextroamphetamine (From Allergy Rash Verified 08/22/24 12:48 Adderall) Review of Systems Review of Systems: CONSTITUTIONAL: Endorses malaise, denies body aches, chills, sweats, fever EYES: Denies visual changes, redness, or discharge ENT: Reports rhinorrhea, congestion, sinus pain, otalgia, decreased taste, smell CARDIOVASCULAR: Denies chest pain, palpitations, edema RESPIRATORY: Reports cough, post nasal drainage. Denies dyspnea GASTROINTESTINAL: Denies abdominal pain, nausea, vomiting, diarrhea SKIN: Denies rash or itching NEUROLOGIC: Denies headache PMFSH Past Medical History Medical History Epidermoid cyst of skin of back Surgical History Surgical History No pertinent past surgical history Family History Family History Mother Family history non-contributory Social History Social History Smoking packs per day: 0.5 Smoking cigarettes per day: 10.0 Years smoked: 9 Smoking pack-years: 4.50 Smoking status: Current every day smoker Substance use: current Substance use type: methamphetamine Gender identity (if verbalized by the patient): Female Sexual Orientation (if Verbalized by the Patient): Straight or Heterosexual Spiritual care concerns: No Exam Narrative: GENERAL: mildly Ill-appearing, nontoxic no acute distress. EYES: conjunctivae clear ENT: Mucous membranes moist. TM pearly balderas with dull light reflex bilaterally; no tragal tenderness. Oropharynx erythematous without lesions or exudate, no drooling, no hoarseness, no trismus, uvula midline. Hoarse voice. No tripod positioning, muffled voice, soft palate or pharyngeal wall bulging NECK: Supple. No lymphadenopathy CHEST: Clear to auscultation, breath sounds equal. No wheezing, rhonchi, rales, or stridor. No respiratory distress, speaks in full sentences. HEART: Regular rate and rhythm. No murmur heard. SKIN: Warm, dry, no rash. NEURO: Alert and oriented x3. PSYCH: Normal mood and affect Course Course Emergency Course: Patient is aware of diagnosis, understands and agrees to treatment plan. Anticipatory guidance given. Patient agrees to follow-up as directed and is aware of reasons to seek care at the emergency department. Portions of this record may have been created with voice recognition software Level of Care: Express Care Visit Vital Signs Vital signs: Vital Signs Temperature 97.9 F 08/22/24 12:40 Pulse Rate 81 08/22/24 12:40 Respiratory Rate 16 08/22/24 12:40 Blood Pressure 137/71 08/22/24 12:40 Pulse Oximetry 100 08/22/24 12:40 Oxygen Delivery Room Air 08/22/24 12:40 Temperature 97.9 F 08/22/24 12:40 Pulse Rate 81 08/22/24 12:40 Respiratory Rate 16 08/22/24 12:40 Blood Pressure 137/71 08/22/24 12:40 Pulse Oximetry 100 08/22/24 12:40 Oxygen Delivery Room Air 08/22/24 12:40 reviewed MDM - URI/Sore Throat MDM Narrative Medical decision making narrative: Discussed physical exam findings. negative flu and COVID. Reviewed prescriptions. Advised supportive measures and signs/symptoms to go to the ER. Pt is appropriate for outpt treatment and f/u. Differential Diagnosis Differential diagnosis: Likely upper respiratory infection, sinusitis and viral infection Lab Data Labs: Lab Results 08/22/24 Range/Units 12:45 POC Influenza A Ag Negative (Negative) POC Influenza B Ag Negative (Negative) POC SARS CoV-2 Ag Negative (Negative) Discharge Plan Discharge Clinical Impression: Sinusitis Patient Disposition: Home Condition: Stable Instructions: Antibiotic Form, Rhinosinusitis (ED) Additional Instructions: flu COVID negative. Take antibiotic as directed Over the counter Recommendations: Flonase spray and Zyrtec (or Claritin/Makenzie) over the counter Cough syrup may cause drowsiness; avoid driving or take it at night time. Tylenol or ibuprofen every 8 hours as needed for pain Drink plenty of fluids Follow up with your primary care provider in 1 week. Go to the ER for worsening symptoms or concerns. Patient Language: Hungarian Prescriptions: New fluticasone propionate [Flonase Allergy Relief] 50 mcg/actuation spray,suspension 1 spray intranasal DAILY PRN (Reason: allergy symptoms) Qty: 16 0RF Rx Instructions: administer into each nostril amoxicillin-pot clavulanate 875-125 mg tablet 1 tablet PO Q12H 7 Days Qty: 14 0RF cetirizine [Zyrtec] 10 mg tablet 10 mg PO DAILY PRN (Reason: allergy symptoms) Qty: 14 0RF ibuprofen 600 mg tablet 600 mg PO TID PRN (Reason: pain) Qty: 14 0RF No Action nitrofurantoin monohyd/m-cryst [Macrobid] 100 mg capsule 100 mg PO Q12H 7 Days Qty: 14 0RF Rx Instructions: must administer with a meal/food phenazopyridine [Pyridium] 200 mg tablet 200 mg PO TID Qty: 6 0RF Follow-up/Referrals: [place],Denise Suazo APN [Primary Care Provider] -
[2024-08-22 13:08] LABS: EDCOVIDSCREEN Negative (Negative); EDINFLUASCREEN Negative (Negative); EDINFLUBSCREEN Negative (Negative)
--- OUTSIDE RECORDS SUMMARY | 2024-08-22 13:33 | XMS_ITS | Clinical Summary ---
Author Organization [facility] Address [address] [place] [address] Care Team Providers Care Polysomnographic Tech Name Role Phone Denise Callahan NP Primary [...] Department Care Team Description 06/01/2024 10:45 AM LIVESTOCK TRUCKER - 06/01/2024 11:59 PM LIVESTOCK TRUCKER Hospital Encounter [facility] [address] [place] [id number] Excessive and frequent menstruation with regular cycle [...] on file Legal Sex Female 5:58 AM LIVESTOCK TRUCKER Gender Identity Female 11/10/2023 7:36 PM CDT [...] Standard) 2019 Regular Well Visit/Exam 18-64 08/24/2021 DTaP/Tdap/Td Vaccine (7 - Td or Tdap) 06/12/2024 06/12/2014, 12/07/2008, 12/07/2008, Additional history exists Influenza Vaccine (Season Ended) 2024 04/12/2018, 01/28/2016, 01/24/2015, Additional history exists Hepatitis B Screening Completed 03/10/2004 , 01/09/2004, 2003, Additional history exists Varicella Vaccines Completed 10/18/2007, 09/12/2004 Meningococcal Vaccine Aged Out 11/13/2014 No venita ben eligible based on patient's age to complete this topic HPV Vaccines Completed 12/10/2015, 04/2014, 11/13/2014 Procedures Procedure Name Priority Date/Time Associated Diagnosis Comments US PELVIS W ENDOVAGINAL Schedule Routine, Read Routine (OP Routine) 06/01/2024 12:12 PM LIVESTOCK TRUCKER Excessive and frequent menstruation with regular cycle from Last 3 Months Results * US Pelvis W Endovaginal (06/01/2024 12:12 PM LIVESTOCK TRUCKER) Anatomical Region Laterality Modality Pelvis N/A Ultrasound 06/05/2024 10:2 6 AM LIVESTOCK TRUCKER Narrative 06/05/2024 10:27 AM LIVESTOCK TRUCKER EXAM DESCRIPTION: US PELVIS W ENDOVAGINAL REASON [...] Bola Lyons M.D. CH: GLEN Report ID: [id number] Reading Location: [place] [id number] Procedure Note Bola Lyons Jr., MD - [...] Electronically signed by Bola Lyons M.D. CH: Report ID: [id number] Reading Location: [id number] Yenifer Jones CLEANER AND PREPARER IMG US PROCEDURES Final Resul t from Last 3 Months Insurance [facility] [place] [facility] AETNA BETTER [place] ID AETNA BETTER [facility] Care Teams Polysomnographic Tech Relationship Specialty Start Date End Date Denise Callahan NP [address] [place] [id number] PCP - General Nurse Practitioner 05/27/23
--- OUTSIDE RECORDS SUMMARY | 2024-08-22 13:33 | XMS_ITS | Referral Summary ---
Author Organization [facility] Address [address] [place] [address] Care Team Providers Care Relief Captain Name Role Phone Denise Callahan NP Primary Care Provider Encounters Date Type Department Care Team Description 06/01/2024 10:45 AM DESK ASSISTANT - 06/01/2024 11:59 PM DESK ASSISTANT Hospital Encounter [facility] [address] [place] [address] Excessive and frequent menstruation with regular cycle [...] on file Legal Sex Female 5:58 AM DESK ASSISTANT Gender Identity Female 11/10/2023 7:36 PM CDT [...] Read Routine (OP Routine) 06/01/2024 12:12 PM DESK ASSISTANT Excessive and frequent menstruation with regular cycle from Last 3 Months Results * US Pelvis W Endovaginal (06/01/2024 12:12 PM DESK ASSISTANT) Anatomical Region Laterality Modality Pelvis N/A Ultrasound 06/05/2024 10:2 6 AM DESK ASSISTANT Narrative 06/05/2024 10:27 AM DESK ASSISTANT EXAM DESCRIPTION: US PELVIS W ENDOVAGINAL REASON [...] Bola Lyons M.D. CH: GLEN Report ID: [id number] Reading Location: [id number] Procedure Note Bola Lyons Jr., MD - [...] Bola Lyons M.D. CH: GLEN Report ID: [id number] Reading Location: [place] [address] Yenifer Jones NP IM US PROCEDURES Final Resul t from Last 3 Months Insurance [facility] [employer] [facility] MEDICAID [facility] [place] Care Teams Relief Captain Relationship Specialty Start Date End Date Callahan, Denise Noyola NP [address] [place] [address] PCP - General Nurse Practitioner 05/27/23
--- OUTSIDE RECORDS SUMMARY | 2024-08-22 13:34 | XMS_ITS | Clinical Summary ---
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
--- OUTSIDE RECORDS SUMMARY | 2024-08-22 13:34 | XMS_ITS | Data Portability ---
Author Organization [facility] DANIELENehal Address [address] [place] [address] Care Team Providers Care Eyeglass Cutter Name Role Phone MANJARREZ DENISE Primary Care Provider [phone] Assessment No assessment recorded. Plan of Treatment Reminders Order Date Submit Date Provider Last Modified By Organization Details Last Modified Time Details Appointments None recorded . Lab chlamydi a trachoma tis + neisseri a gonorrho eae + trichomo page vaginali s DNA panel, DEBO+prob e, unspecif ied specimen 2022 023 [facility], [address] [place] [address], [address], 07:14:52 vitamin D, 25-hydro xy, total, serum 2021 022 [facility], [address] [place] [address] 2, [place], [address], 15:07:51 food allergen panel, serum 2021 022 [facility], [address] [place] [address] 2, [place], [address], 16:08:11 C reactive protein, QN, serum or plasma 2021 022 [facility], [address] [facility], [facility] 2, [place], [address], 16:08:14 DONI (antinuc lear antibodi es) screen, serum 052021 [facility], [address] [facility], [place], [address], 16:08:12 erythroc yte sediment ation rate by danielergr en method 2021 [facility], [address] [facility], [address], [place], [address], 16:08:13 allergy panel, serum or plasma 2021 [facility], [address] [facility], [address], [place], [address], 16:08:09 TSH, ultra-se nsitive, serum 2021 [facility], [address], [place], [address], 16:08:08 CMP, serum or plasma 2021 [facility], [address], [address], [place], [address], 16:08:05 lipid panel, serum 2021 [facility], [address], [address], [place], [address], 16:08:07 CBC 2021 [facility], [address], [address], [place], [address], 16:08:06 Referral None recorded . Procedures None recorded . Surgeries None recorded . Imaging US, pelvis, transabd ominal + transvag inal 2024 025 [facility], [address] [facility] , [place], [address], 5 12:20:59 electrom yogram + nerve conducti on study 2023 024 [facility] Scheduling, [address] [facility] , [place], [address], 4 17:23:08 Medication Orders naproxen 500 mg tablet,d elayed release 2023 024 [id number], [address], [place], [address], 4 12:19:18 Bactrim DS 800 mg-160 mg tablet 2023 025 [id number], [address], [place], [address], 5 10:50:43 naproxen 500 mg tablet,d elayed release 2022 023 [email or web address] [facility] #[id number], [address], [place], [address], 4 12:10:02 triamcin olone acetonid e 0.1 % topical cream 2021 022 [email or web address] Not available 3 14:20:13 predniso ne 10 mg tablet 2021 022 [email or web address] Not available 3 14:20:08 Patient TargetsNo targets recorded. Patient Instructions Encounter Date Encounter Id Patient Instructions Last Modified By Organization Details Last Modified Time 09/23/2021 [id number] A healthy lifestyle: care instructions Not available [...] pending results Not available 09/23/2021 14:54:40 06/23/2022 [id number] Learning About How to Make Healthy Changes in Your Child's Diet fernstrn Not available 06/23/2022 14:49:14 A healthy lifestyle: care instructions [email or web address] Not available 06/23/2022 14:49:30 03/22/2023 [id number] A healthy lifestyle: care instructions Not available [...] 2 months Not available 03/22/2023 13:01:45 05/27/2023 [id number] A healthy lifestyle: care instructions Not available [...] care: none Not available 05/27/2023 12:31:46 05/17/2024 [id number] learning about mood disorders [email or web address] Not available [...] glucose 80 mg/dL 65-99 Not Available [facility] ([facility]) [address] [place], [address], 09/28/2021 16:08:04 09/24/19 22 09/24/2021 COMP. METAB OLIC PANEL (14) BUN 17 mg/dL 6-20 Not Available [facility] ([facility]) [address] [place], [address], 09/28/2021 16:08:04 09/24/19 22 09/24/2021 COMP. METAB OLIC PANEL (14) creatinine 0.88 mg/dL 0.57-1 .00 Not Available [facility] ([facility]) [address] [place], [address], 09/28/2021 16:08:04 09/24/19 22 09/24/2021 COMP. METAB OLIC PANEL (14) eGFR 98 mL/mi n/1.7 3 >59 Not Available [facility] ([facility]) [address] [place], [address], 09/28/2021 16:08:04 09/24/19 22 09/24/2021 COMP. METAB OLIC PANEL (14) BUN/creatini ne ratio 19 9-23 Not Available [facility] ([facility]) [address] [place], [address], 09/28/2021 16:08:04 09/24/19 22 09/24/2021 COMP. METAB OLIC PANEL (14) sodium 141 mmol/ L 134-14 4 Not Available [facility] ([facility]) [address] [place], [address], 09/28/2021 16:08:04 09/24/19 22 09/24/2021 COMP. METAB OLIC PANEL (14) potassium 3.8 mmol/ L 3.5-5. 2 Not Available [facility] ([facility]) [address] [place], [address], 09/28/2021 16:08:04 09/24/19 22 09/24/2021 COMP. METAB OLIC PANEL (14) chloride 107 mmol/ L 96-106 above high normal Not Available [facility] ([facility]) [address] [facility] [place], [address], 09/28/2021 16:08:04 09/24/19 22 09/24/2021 COMP. METAB OLIC PANEL (14) carbon dioxide, total 22 mmol/ L 20-29 Not Available [facility] ([facility]) [address] [facility] [place], [address], 09/28/2021 16:08:04 09/24/19 22 09/24/2021 COMP. METAB OLIC PANEL (14) calcium 8.9 mg/dL 8.7-10 .2 Not Available [facility] ([facility]) [address] [facility] [place], [address], 09/28/2021 16:08:04 09/24/19 22 09/24/2021 COMP. METAB OLIC PANEL (14) protein, total 6.7 g/dL 6.0-8. 5 Not Available [facility] ([facility]) [address], [place], [address], 09/28/2021 16:08:04 09/24/19 22 09/24/2021 COMP. METAB OLIC PANEL (14) albumin 4.3 g/dL 3.9-5. 0 Not Available [facility] ([facility]) [address], [place], [address], 09/28/2021 16:08:04 09/24/19 22 09/24/2021 COMP. METAB OLIC PANEL (14) globulin, total 2.4 g/dL 1.5-4. 5 Not Available [facility] ([facility]) [address] [place], [address], 09/28/2021 16:08:04 09/24/19 22 09/24/2021 COMP. METAB OLIC PANEL (14) A/G ratio 1.8 1.2-2. 2 Not Available [facility] ([facility]) [address], [place], [address], 09/28/2021 16:08:04 09/24/19 22 09/24/2021 COMP. METAB OLIC PANEL (14) bilirubin, total <0.2 mg/dL 0.0-1. 2 Not Available [facility] ([facility]) [address], [place], [address], 09/28/2021 16:08:04 09/24/19 22 09/24/2021 COMP. METAB OLIC PANEL (14) alkaline phosphatase 61 IU/L 42-106 Not Available [facility] ([facility]) [address], [place], [address], 09/28/2021 16:08:04 09/24/19 22 09/24/2021 COMP. METAB OLIC PANEL (14) AST (SGOT) 18 IU/L 0-40 Not Available [facility] ([facility]) [address] [place], [address], 09/28/2021 16:08:04 09/24/19 22 09/24/2021 COMP. METAB OLIC PANEL (14) ALT (SGPT) 16 IU/L 0-32 Not Available [facility] ([facility]) [address] [facility], [place], [address], 09/28/2021 16:08:04 09/24/19 22 09/24/2021 CBC, NO DIFFE RENTI AL/PL ATELE T WBC 7.6 x10e3 /uL 3.4-10 .8 Not Available [facility] ([facility]) [address] [facility], [place], [address], 09/28/2021 16:08:06 09/24/19 22 09/24/2021 CBC, NO DIFFE RENTI AL/PL ATELE T RBC 3.95 x10e6 /uL 3.77-5 .28 Not Available [facility] ([facility]) [address] [place], [address], 09/28/2021 16:08:06 09/24/19 22 09/24/2021 CBC, NO DIFFE RENTI AL/PL ATELE T hemoglobin 12.6 g/dL 11.1-1 5.9 Not Available [facility] ([facility]) [address] [place], [address], 09/28/2021 16:08:06 09/24/19 22 09/24/2021 CBC, NO DIFFE RENTI AL/PL ATELE T hematocrit 36.5 % 34.0-4 6.6 Not Available [facility] ([facility]) [address] [place], [address], 09/28/2021 16:08:06 09/24/19 22 09/24/2021 CBC, NO DIFFE RENTI AL/PL ATELE T MCV 92 fL 79-97 Not Available [facility] ([facility]) [address] [place], [address], 09/28/2021 16:08:06 09/24/19 22 09/24/2021 CBC, NO DIFFE RENTI AL/PL ATELE T MCH 31.9 pg 26.6-3 3.0 Not Available [facility] ([facility]) [address] [place], [address], 09/28/2021 16:08:06 09/24/19 22 09/24/2021 CBC, NO DIFFE RENTI AL/PL ATELE T MCHC 34.5 g/dL 31.5-3 5.7 Not Available [facility] ([facility]) [address] [place], [address], 09/28/2021 16:08:06 09/24/19 22 09/24/2021 CBC, NO DIFFE RENTI AL/PL ATELE T RDW 12.4 % 11.7-1 5.4 Not Available [facility] ([facility]) [address] [place], [address], 09/28/2021 16:08:06 09/24/19 22 09/24/2021 CBC, NO DIFFE RENTI AL/PL ATELE T NRBC APPOINTMENT SCHEDULER Not Available [facility] ([facility]) [address] [place], [address], 09/28/2021 16:08:06 09/24/19 22 09/24/2021 LIPID PANEL cholesterol, total 144 mg/dL 100-16 9 Not Available [facility] ([facility]) [address] [place], [address], 09/28/2021 16:08:07 09/24/19 22 09/24/2021 LIPID PANEL triglyceride s 52 mg/dL 0-89 Not Available [facility] ([facility]) [address] [facility], [place], [address], 09/28/2021 16:08:07 09/24/19 22 09/24/2021 LIPID PANEL HDL cholesterol 57 mg/dL >39 Not Available [facility] ([facility]) [address] [facility], [place], [address], 09/28/2021 16:08:07 09/24/19 22 09/24/2021 LIPID PANEL VLDL cholesterol nimesh 11 mg/dL 5-40 Not Available [facility] ([facility]) [address] [facility], [place], [address], 09/28/2021 16:08:07 09/24/19 22 09/24/2021 LIPID PANEL LDL chol calc ([facility]) 76 mg/dL 0-109 Not Available [facility] ([facility]) [address] [place], [address], 09/28/2021 16:08:07 09/24/19 22 09/24/2021 LIPID PANEL comment: APPOINTMENT SCHEDULER Not Available [facility] ([facility]) [address] [facility], [place], [address], 09/28/2021 16:08:07 09/24/19 22 09/24/2021 TSH RFX ON ABNOR MAL TO FREE T4 TSH 2.060 uIU/m L 0.450- 4.500 Not Available [facility] ([facility]) [address] [place], [address], 09/28/2021 16:08:08 09/24/19 22 09/23/2021 ALLER GENS, [...] >100. 00 Very High Not Available [facility] ([facility]) [address] [place], [address], 09/28/2021 16:08:09 09/24/19 22 09/28/2021 ALLER GENS, ZONE 8 S048-HoM D pteronyssinu s <0.10 kU/L class 0 Not Available [facility] ([facility]) [address] [place], [address], 09/28/2021 16:08:09 09/24/19 22 09/28/2021 ALLER GENS, ZONE 8 N699-WkS D farinae <0.10 kU/L class 0 Not Available [facility] ([facility]) [address] [place], [address], 09/28/2021 16:08:09 09/24/19 22 09/28/2021 ALLER GENS, ZONE 8 B631-AoX CAT dander <0.10 kU/L class 0 Not Available [facility] ([facility]) [address] [place], [address], 09/28/2021 16:08:09 09/24/19 22 09/28/2021 ALLER GENS, ZONE 8 M490-VzX dog dander <0.10 kU/L class 0 Not Available [facility] ([facility]) [address] [place], [address], 09/28/2021 16:08:09 09/24/19 22 09/28/2021 ALLER GENS, ZONE 8 o660-CvN bermuda grass <0.10 kU/L class 0 Not Available [facility] ([facility]) [address] [place], [address], 09/28/2021 16:08:09 09/24/19 22 09/28/2021 ALLER GENS, ZONE 8 b343-LsQ bluegrass, zuri <0.10 kU/L class 0 Not Available [facility] ([facility]) [address] [facility] [place], [address], 09/28/2021 16:08:09 09/24/19 22 09/28/2021 ALLER GENS, ZONE 8 c927-VsR balaji grass <0.10 kU/L class 0 Not Available [facility] ([facility]) [address] [facility], [place], [address], 09/28/2021 16:08:09 09/24/19 22 09/28/2021 ALLER GENS, ZONE 8 n248-ZbE bahia grass <0.10 kU/L class 0 Not Available [facility] ([facility]) [address] [facility], [place], [address], 09/28/2021 16:08:09 09/24/19 22 09/28/2021 ALLER GENS, ZONE 8 K011-TjL cockroach, citizen of [place] 0.12 kU/L class 0/I abnormal Not Available [facility] ([facility]) [address] [facility] [place], [address], 09/28/2021 16:08:09 09/24/19 22 09/28/2021 ALLER GENS, ZONE 8 G752-ByW penicillium chrysogen <0.10 kU/L class 0 Not Available [facility] ([facility]) [address] [place], [address], 09/28/2021 16:08:09 09/24/19 22 09/28/2021 ALLER GENS, ZONE 8 B084-PjW cladosporium herbarum <0.10 kU/L class 0 Not Available [facility] ([facility]) [address] [place], [address], 09/28/2021 16:08:09 09/24/19 22 09/28/2021 ALLER GENS, ZONE 8 R537-VqH aspergillus fumigatus <0.10 kU/L class 0 Not Available [facility] ([facility] [facility]) [address] [facility] [place], [address], 09/28/2021 16:08:09 09/24/19 22 09/28/2021 ALLER GENS, ZONE 8 Q121-CrT mucor racemosus <0.10 kU/L class 0 Not Available [facility] ([facility]) [address] [facility], [place], [address], 09/28/2021 16:08:09 09/24/19 22 09/28/2021 ALLER GENS, ZONE 8 I007-JrX alternaria alternata <0.10 kU/L class 0 Not Available [facility] ([facility]) [address] [facility] [place], [address], 09/28/2021 16:08:09 09/24/19 22 09/28/2021 ALLER GENS, ZONE 8 N077-VtD stemphylium herbarum <0.10 kU/L class 0 Not Available [facility] ([facility]) [address] [facility] [place], [address], 09/28/2021 16:08:09 09/24/19 22 09/28/2021 ALLER GENS, ZONE 8 V382-LgV oak, white <0.10 kU/L class 0 Not Available [facility] ([facility]) [address] [facility] [place], [address], 09/28/2021 16:08:09 09/24/19 22 09/28/2021 ALLER GENS, ZONE 8 E797-LrV elm, citizen [place] <0.10 kU/L class 0 Not Available [facility] ([facility]) [address] [facility] [place], [address], 09/28/2021 16:08:09 09/24/19 22 09/28/2021 ALLER GENS, ZONE 8 A248-FoG maple/box elder <0.10 kU/L class 0 Not Available [facility] ([facility]) [address], [place], [address], 09/28/2021 16:08:09 09/24/19 22 09/28/2021 ALLER GENS, ZONE 8 L436-AlA hazelnut tree <0.10 kU/L class 0 Not Available [facility] ([facility]) [address], [place], [address], 09/28/2021 16:08:09 09/24/19 22 09/28/2021 ALLER GENS, ZONE 8 E847-NyZ hickory, white <0.10 kU/L class 0 Not Available [facility] ([facility]) [address], [place], [address], 09/28/2021 16:08:09 09/24/19 22 09/28/2021 ALLER GENS, ZONE 8 J334-WuY maple leaf sycamore <0.10 kU/L class 0 Not Available [facility] ([facility]) [address], [place], [address], 09/28/2021 16:08:09 09/24/19 22 09/28/2021 ALLER GENS, ZONE 8 T756-LxW white mulberry <0.10 kU/L class 0 Not Available [facility] ([facility]) [address], [place], [address], 09/28/2021 16:08:09 09/24/19 22 09/28/2021 ALLER GENS, ZONE 8 V672-OkC cedar, mountain <0.10 kU/L class 0 Not Available [facility] ([facility]) [address], [place], [address], 09/28/2021 16:08:09 09/24/19 22 09/28/2021 ALLER GENS, ZONE 8 A302-PuA sweet gum <0.10 kU/L class 0 Not Available [facility] ([facility]) [address] [facility] [place], [address], 09/28/2021 16:08:09 09/24/19 22 09/28/2021 ALLER GENS, ZONE 8 W923-YfV ragweed, short <0.10 kU/L class 0 Not Available [facility] ([facility]) [address] [facility] [place], [address], 09/28/2021 16:08:09 09/24/19 22 09/28/2021 ALLER GENS, ZONE 8 D084-HfQ mugwort <0.10 kU/L class 0 Not Available [facility] ([facility]) [address] [facility], [place], [address], 09/28/2021 16:08:09 09/24/19 22 09/28/2021 ALLER GENS, ZONE 8 R286-YzM plantain, nepalese <0.10 kU/L class 0 Not Available [facility] ([facility]) [address] [facility], [place], [address], 09/28/2021 16:08:09 09/24/19 22 09/28/2021 ALLER GENS, ZONE 8 L958-ZcY pigweed, common <0.10 kU/L class 0 Not Available [facility] ([facility]) [address] [facility] [place], [address], 09/28/2021 16:08:09 09/24/19 22 09/28/2021 ALLER GENS, ZONE 8 O357-AnB sheep sorrel 0.17 kU/L class 0/I abnormal Not Available [facility] ([facility]) [address] [facility] [place], [address], 09/28/2021 16:08:09 09/24/19 22 09/28/2021 ALLER GENS, ZONE 8 K675-PrY nettle 0.11 kU/L class 0/I abnormal Not Available [facility] ([facility]) [address] [place], [address], 09/28/2021 16:08:09 09/24/19 22 09/28/2021 FOOD ALLER GY PROFI LE I461-TzB egg white <0.10 kU/L class 0 Not Available [facility] ([facility]) [address] [place], [address], 09/28/2021 16:08:10 09/24/19 22 09/28/2021 FOOD ALLER GY PROFI LE K931-UeA peanut <0.10 kU/L class 0 Not Available [facility] ([facility]) [address] [place], [address], 09/28/2021 16:08:10 09/24/19 22 09/28/2021 FOOD ALLER GY PROFI LE Z830-NuO soybean <0.10 kU/L class 0 Not Available [facility] ([facility]) [address] [place], [address], 09/28/2021 16:08:10 09/24/19 22 09/28/2021 FOOD ALLER GY PROFI LE U410-IvU milk <0.10 kU/L class 0 Not Available [facility] ([facility]) [address] [place], [address], 09/28/2021 16:08:10 09/24/19 22 09/28/2021 FOOD ALLER GY PROFI LE B170-FmT clam <0.10 kU/L class 0 Not Available [facility] ([facility]) [address] [place], [address], 09/28/2021 16:08:10 09/24/19 22 09/28/2021 FOOD ALLER GY PROFI LE T088-CuO shrimp <0.10 kU/L class 0 Not Available [facility] ([facility]) [address] [place], [address], 09/28/2021 16:08:10 09/24/19 22 09/28/2021 FOOD ALLER GY PROFI LE G399-FtQ walnut <0.10 kU/L class 0 Not Available [facility] ([facility]) [address] [facility], [place], [address], 09/28/2021 16:08:10 09/24/19 22 09/28/2021 FOOD ALLER GY PROFI LE Z027-QeR codfish <0.10 kU/L class 0 Not Available [facility] ([facility]) [address] [place], [address], 09/28/2021 16:08:10 09/24/19 22 09/28/2021 FOOD ALLER GY PROFI LE Y398-AeB scallop <0.10 kU/L class 0 Not Available [facility] ([facility]) [address] [place], [address], 09/28/2021 16:08:10 09/24/19 22 09/28/2021 FOOD ALLER GY PROFI LE A328-XlV wheat <0.10 kU/L class 0 Not Available [facility] ([facility]) [address] [place], [address], 09/28/2021 16:08:10 09/24/19 22 09/28/2021 FOOD ALLER GY PROFI LE K017-VgT corn <0.10 kU/L class 0 Not Available [facility] ([facility]) [address] [place], [address], 09/28/2021 16:08:10 09/24/19 22 09/28/2021 FOOD ALLER GY PROFI LE E173-LcE sesame seed <0.10 kU/L class 0 Not Available [facility] ([facility]) [address] [place], [address], 09/28/2021 16:08:10 09/24/19 22 09/24/2021 DONI W/REF PAULA IF POSIT ZACKARY DONI direct Negati ve negati ve Not Available [facility] ([facility]) [address] [place], [address], 09/28/2021 16:08:12 09/24/19 22 09/24/2021 SEDIM ENTAT ION RATE- WESTE RGREN sedimentatio n rate-westerg mo 2 mm/HR 0-32 Not Available [facility] ([facility]) [address] [facility], [place], [address], 09/28/2021 16:08:13 09/24/19 22 09/24/2021 C-WESTON CTIVE PROTE IN, QUANT C-reactive protein, quant 2 mg/L 0-10 Not Available [facility] ([facility]) [address] [facility], [place], [address], 09/28/2021 16:08:14 06/23/19 23 06/24/2022 CT, NG, TRICH VAG BY DEBO chlamydia by DEBO Negati ve negati ve Not Available [facility] ([facility]) [address] [place], [address], 06/25/2022 07:14:51 06/23/19 23 06/24/2022 CT, NG, TRICH VAG BY DEBO gonococcus by DEBO Negati ve negati ve Not Available [facility] ([facility]) [address] [place], [address], 06/25/2022 07:14:51 06/23/19 23 06/24/2022 CT, NG, TRICH VAG BY DEBO trich vag by DEBO Negati ve negati ve Not Available [facility] ([facility]) [address] [place], [address], 06/25/2022 07:14:51 06/05/19 24 06/01/2023 elect romyo gram + nerve condu ction study No observ ation record ed. [facility] [address] [facility] [place], [address], 06/17/2023 08:09:58 06/05/1906/01/2024 US, pelvi s, trans abdom inal + trans vagin al No observ ation record ed. [facility] [address] [facility] [place], [address], 06/09/2024 06:02:19 Result Notes None recorded. Problems Name Problem SNOMED Code Status Onset Date Resolution Date Notes Provider Name and Address Organization Details Recorded Time Obesity 724512814 Active 2021 Denise Manjarrez APN, FNP-C Attn: Accounting ,[address] [place], [address] , [facility] 2 14:48:15 Tobacco user 036898183 Active 2021 Denise Manjarrez APN, FNP-C Attn: Accounting ,[address] [place], [address] , [facility] 2 14:48:17 Contact dermatit is 88593839 Active 2021 Denise Manjarrez APN, FNP-C Attn: Accounting ,[address] [place], [address] , [facility] 2 15:07:17 Paresthe jimmy of bilatera l hands 449355719 Active 2023 Denise Manjarrez APN, FNP-C Attn: Accounting ,[address] [place], [address] , [facility] 4 12:19:19 Heel pain 0283222 Completed 12/16/2017 [facility] 16:02:41 Lesion of soft tissue 098417041 Completed 09/23/2021 Seen by [facility]ERY, dx'd w/ sebaceou s cyst, excision planned. Denise Manjarrez APN, FNP-C Attn: Accounting ,[address] [place], [address] , [place] [facility] 2 14:28:03 Obesity 018950884 Completed 12/16/2017 Denise Manjarrez APN, ZAHEERC Attn: Accounting ,[address] [facility], [place], [address] , [place] [facility] 2 14:48:15 Pharyngi tis 209978031 Completed 12/16/2017 Poli Alexsandra null, [place] [facility] 8 16:02:45 Acute sinusiti s 99772252 Completed 12/16/2017 Pol[place] [facility] 8 16:02:30 Acute non-supp urative serous otitis media 467514671 Completed 12/16/2017 Pol[place] [facility] 8 16:02:32 Pneumoni a 527214522 Completed 12/16/2017 [place] [facility] 8 16:02:34 Wheezing 36903867 Completed 12/16/2017 Pol[place] [facility] 8 16:02:49 Upper respirat ory infectio n 71768213 Completed 12/16/2017 Pol[place] [facility] 8 16:02:47 Persiste nt cough 528832752 Completed 12/16/2017 Pol[place] null[place] [facility] 8 16:02:43 [place] ht [id number] Active Not Available [facility] 2 19:59:07 Acne [id number] Active Not Available [facility] 2 19:59:07 Problem Notes None recorded. Procedures Surgical History Date Name Laterality Status Provider Name and Address Organization Details Recorded Time 3 Control Implant Removal completed BRISEIDA Alvarenga Attn: Accounting,[address] [facility], [place], [address], [place] [facility] 06/23/2022 14:50:39 0 Control Implant Replacement completed Humza Reyna MD Attn: Accounting,[address] [facility], [place], [address], [place] [facility] 03/27/2020 15:14:02 8 Cryosurgery Warts/Skin Tags completed Jeanette Webster MD Attn: Accounting,[address] [facility], [place], [address], [place] [facility] 09/30/2017 14:39:33 7 Control Implant Insertion completed Humza Reyna MD Attn: Accounting,[address] [facility], [place], [address], [place] [facility] 08/03/2016 18:31:27 7 IUD Removal completed Humza Reyna MD Attn: Accounting,[address] [facility], [place], [address], [place] [facility] 08/03/2016 18:31:21 7 IUD Insertion completed Humza Reyna MD Attn: Accounting,[address] [facility], [place], [address], [place] [facility] 07/01/2016 16:49:38 Imaging Results Imaging Date Name Status LastModified by Organization Details LastModified Time 06/01/2023 electromyogram + nerve conduction study completed [facility] [address] [place], [address], 06/17/2023 08:09:58 06/01/2024 US, pelvis, transabdominal + transvaginal completed [address] [place], [address], 06/09/2024 06:02:19 Procedure Notes None recorded. Medical Equipment None Reported. Allergies Allergen ID Allergen Name Allergen Category Reaction Reaction Severity Criticality Documentation Date Start Date Code Code System Note Provider Name and Address Organization Details Recorded Time 503104 Adderall medicatio n rash Not available Not available 06/23/2022 70177 RxNorm Not Available Not Available Not Available [...] COAT TO AFFECTED AREA TWICE A DAY 06/23 completed Not Available Not Available Not [...] mass index (BMI) Body mass index (BMI) [Percentile] Per age and sex Body weight Oxygen saturation Oxygen saturation in Arterial blood by Pulse oximetry Respiratory rate Body temperature Systolic blood pressure Diastolic blood pressure Provider Name and Address Organization Details Last Updated DateTime 2 165.1 cm 33.8 kg/m2 97 % 71124.9 5 g 99 % 99 % 16 /min 97.7 [degF] 110 mm[Hg] 80 mm[Hg] Antonio Barnett MA [facility] 2 14:13:21 Date Recorded Heart rate Provider Name an d Address Organization Details Last Updated DateTime 09/23/2021 99 /min ЕЛЕНА Wolff, SUBGRADE ROLLER OPERATOR-C Attn: [facility],[address] [place], [address], [facility] 09/23/2021 14:29:01 Date Recorded Body height Body mass index (BMI) [Percentile] Per age and sex Body mass index (BMI) Body weight Systolic blood pressure Diastolic blood pressure Provider Name and Address Organization Details Last Updated DateTime 3 165.1 cm 98 % 37.1 kg/m2 694228. 1 g 114 mm[Hg] 78 mm[Hg] Edel Dexter Sven [facility] 3 14:24:02 Date Recorded Body height Body mass index (BMI) [Percentile] Per age and sex Body mass index (BMI) Body weight Oxygen saturation Oxygen saturation in Arterial blood by Pulse oximetry Heart rate Respiratory rate Body temperature Systolic blood pressure Diastolic blood pressure Provider Name and Address Organization Details Last Updated DateTime 3 165.1 cm 98.36 % 38.9 kg/m2 588589. 61 g 98 % 98 % 104 /min 16 /min 98 [degF] 120 mm[Hg] 74 mm[Hg] Jolene Lobato Sven [facility] 3 12:12:25 Date Recorded Body height Body mass index (BMI) [Percentile] Per age and sex Body mass index (BMI) Body weight Oxygen saturation Oxygen saturation in Arterial blood by Pulse oximetry Heart rate Respiratory rate Body temperature Systolic blood pressure Diastolic blood pressure Provider Name and Address Organization Details Last Updated DateTime 4 165.1 cm 98.1 % 38.4 kg/m2 237069. 84 g 98 % 98 % 104 /min 16 /min 97.5 [degF] 118 mm[Hg] 74 mm[Hg] GIGI Gonzales [facility] 4 12:13:33 Date Recorded Body height Body mass index (BMI) Body mass index (BMI) [Percentile] Per age and sex Body weight Heart rate Systolic blood pressure Diastolic blood pressure Provider Name and Address Organization Details Last Updated DateTime 5 165.1 cm 38.2 kg/m2 98 % 815169. 45 g 90 /min 118 mm[Hg] 76 mm[Hg] Sridevi Mayen Nabeel [facility] 5 10:56:00 Social History Question Answer Notes LastModified by Organizat ion Details LastModified Time Tobacco Smoking Status Current Every Day Smoker ELLIE [place], [place] [facility] 09/23/2021 14:18:16 Do You Have An Advance Directive? No Information not available 09/23/2021 What Is Your Level Of Alcohol Consumption? None Information not available 05/27/2023 How Many Years Have You Consumed Alcohol? 1 Information not available 09/23/2021 Animal Exposure? Yes 2 Dogs [email or web address] Information not available 04/17/2014 Do You Wear A Helmet When Biking? No [email or web address] Information not available 04/17/2014 Are You Blind Or Do You Have Difficulty Seeing? No Information not available 09/23/2021 Are You Or Have You Been Involved With Bullying? No [email or web address] Information not available 04/17/2014 What Is Your Level Of Caffeine Consumption? Occasional Information not available 03/22/2023 What Type Of Marine Electrician Do You Use? None [email or web address] Information not available 04/17/2014 In The 14 [...] Do You Have Serious Difficulty Hearing? No [place] Rt Ear Information not available 09/23/2021 What Type Of Diet Are You Following? REGULAR [email or web address] Information not available 04/17/2014 Do You Or Have You Ever Used E-cigarettes Or Vape? Current User Of Electronic Cigarettes 5% Cm Information not available 09/23/2021 What Is Your Occupation? [employer] Information not available 05/27/2023 Have There Been Any Changes To Your Family Or Social Situation? Yes [email or web address] Information not available 12/11/2016 What Is The Fluoride Status Of Your Home? Fluoridated [email or web address] Information not available 08/12/2016 Are There Any Guns Present In Your Home? No [email or web address] Information not available 04/17/2014 What Is Your Home Situation? Father Dad, Sister [email or web address] Information not available 08/12/2016 Do You Use Insect Repellent Routinely? Yes [email or web address] Information not available 04/17/2014 Car Seat Type Or Seat Belt? Seat Belt [email or web address] Information not available 04/17/2014 Parent Involvement? Both Parents Involved [email or web address] Information not available 04/17/2014 Riding In Car Front Seat? Yes [email or web address] Information not available 04/17/2014 What Was The Date Of Your Most Recent Tobacco Screening? 05/17/2024 [email or web address] Information not available 05/17/2024 How Many Children Do You Have? 0 Information not available 09/23/2021 What Is Your Parents' Marital Status? [email or web address] Information not available 08/12/2016 Pool Exposure No [email or web address] Informatio n not available 04/17/2014 Do You Use Protection During Sex? No Information not available 09/23/2021 What Is Your Relationship Status? Single Boyfriend Information not available 09/23/2021 What Is The Name Of Your School? [employer] [email or web address] Information not available 12/16/2017 Do You Use Your Seat Belt Or Car Seat Routinely? Yes Information not available 09/23/2021 Are You Sexually Active? Yes Information not available 09/23/2021 Do You Have Any Siblings? 1 Sister, 1 Brother [email or web address] Information not available 04/17/2014 Do You Have Smoke And Carbon Monoxide Detectors In Your Home? Yes [email or web address] Information not available 04/17/2014 At What Age Did You Start Smoking Tobacco? 14 Information not available 09/23/2021 Are You Passively Exposed To Smoke? Yes Dad Smoke Outside [email or web address] Information not available 04/17/2014 How Much Tobacco Do You Smoke? 0.5 PPD Information not available 09/23/2021 What Types Of Sporting Activities Do You Participate In? Basketball, Soccer, Volleyball, Softball [email or web address] Information not available 10/17/2018 Do You Feel Stressed (tense, Restless, Nervous, Or Anxious, Or Unable To Sleep At Night)? [id number] Information not available 05/27/2023 Do You Use Any Illicit Or Recreational Drugs? 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 Yes Information not available 04/17/2014 Has Tobacco Cessation Counseling Been Provided? Yes [email or web address] Information not available 05/17/2024 On What Date Was Tobacco Cessation Counseling Provided? 05/17/2024 Information not available 05/17/2024 How Many Years Have You Smoked Tobacco? 3 03/22/23 Information not available 03/22/2023 Year In School 10 [email or web address] Infor mation not available 10/17/2018 Do You [...] Details LastModified Time Paternal Grandfather Diabetes mellitus [email or web address] Not available 2015 12:01:33 Paternal Grandfather Hypertensive disorder [email or web address] Not available 04/2023 12:10:46 Paternal Grandmother Diabetes mellitus [email or web address] Not available 2015 12:01:33 Father Hypertensive disorder [email or web address] Not available 04/2023 12:10:53 Medical History Condition Response Coronary Artery Disease N Other N High Blood Pressure N Atrial Fibrillation N Kidney or Bladder Problems N Thyroid Problems N GI Problems N Depression Y COPD N Blood Clots N Skin Problems N Anemia N Heart Attack (SD) N Anxiety Disorder N Diabetes N Muscle, Joint, or Bone Problems Y Seizures/Epilepsy N Acid Reflux (GERD) N Cancer N Stroke N Asthma N Allergies N High Cholesterol N Hepatitis N Liver Disease N Headaches N Heart Failure N Osteoporosis N Gynecological History Statement/Question Response Flow Heavy [...] Recorded Time HPV9 6 completed Not Available [facility] 05/13/2019 02:32:04 Influenza, split virus, quadrivalent, preservative 6 completed Not Available [facility] 05/13/2019 02:32:32 Tdap 5 completed Not Available [...] 07/24/2022 17:59:20 DTaP 4 completed Not Available [facility] 07/24/2022 17:59:20 DTaP 5 completed Not Available [facility] 07/24/2022 17:59:20 DTaP 4 completed Not Available [facility] 07/24/2022 17:59:20 DTaP 4 completed Not Available [facility] 07/24/2022 17:59:20 Hib, unspecified formulation 4 completed Not Available [facility] 07/24/2022 17:59:20 Hib, unspecified formulation 5 completed Not Available [facility] 07/24/2022 17:59:20 Hib, unspecified formulation 4 completed Not Available [facility] 07/24/2022 17:59:20 Hib, unspecified formulation 4 completed Not Available [facility] 07/24/2022 17:59:20 IPV 4 completed Not Available [facility] 07/24/2022 17:59:20 IPV 9 completed Not Available [facility] 07/24/2022 17:59:20 IPV 4 completed Not Available [facility] 07/24/2022 17:59:20 IPV 4 completed Not Available [facility] 07/24/2022 17:59:20 pneumococcal conjugate PCV 7 4 completed Not Available [facility] 07/24/2022 17:59:20 pneumococcal conjugate PCV 7 5 completed Not Available [facility] 07/24/2022 17:59:20 pneumococcal conjugate PCV 7 4 completed Not Available [facility] 07/24/2022 17:59:20 pneumococcal conjugate PCV 7 4 completed Not Available [facility] 07/24/2022 17:59:20 MMR 8 completed Not Available [facility] 07/24/2022 17:59:20 MMR 5 completed Not Available [facility] 07/24/2022 17:59:20 varicella 8 completed Not Available [facility] 07/24/2022 17:59:20 varicella 5 completed Not Available [facility] 07/24/2022 17:59:20 influenza, unspecified formulation 0 completed Not Available [facility] 07/24/2022 17:59:20 influenza, unspecified formulation 3 completed Not Available [facility] 07/24/2022 17:59:20 influenza, unspecified formulation 8 completed Not Available [facility] 07/24/2022 17:59:20 influenza, unspecified formulation 3 completed Not Available [facility] 07/24/2022 17:59:20 Hep A, ped/adol, 2 dose 7 completed Not Available [facility] 07/24/2022 17:59:20 Hep A, ped/adol, 2 dose 6 completed Not Available [facility] 07/24/2022 17:59:20 Influenza, split virus, quadrivalent, PF 8 completed Not Available [facility] 05/13/2019 02:36:58 Meningococcal MCV4O 5 completed Not Available [facility] 05/13/2019 02:43:38 HPV, quadrivalent 5 completed Not Available [facility] 05/13/2019 02:30:41 Influenza, split virus, quadrivalent, PF 5 completed Not Available [facility] 05/13/2019 02:32:06 HPV9 5 completed Not Available [facility] 05/13/2019 02:50:31 Past Encounters Encounter ID Performer Location Encounter Start Date Encounter Closed Date Diagnosis/Indication Diagnosis SNOMED-CT Code Diagnosis ICD10 Code Diagnosis Note [id number] Jeannine Keen (Peds) [address] [place] [address] 04/17/2014 10:02:00 04/17/2014 11:41:54 Upper respiratory infection 30142694 Persistent cough [id number] Leonila (Peds) [address] [place] [address] 06/12/2014 10:52:10 06/12/2014 17:11:39 Well child 964060854 Growth wnl. Anticipato ry guidance given. Boostrix given. Flu shot not available. Filled out physical for [facility] camp. [id number] Leonila (Peds) [address] [place] [address] 08/07/2014 11:06:41 08/07/2014 14:13:00 Heel pain 0000843 Appears to be likely due to an overuse injury while playing volleyball . Pt. likely has inflammati on in the soft tissues vs. ligaments. Recommend ibuprofen q 6- hours prn, apply heat to area and rest foot from excessive activity for 2 weeks. Notify if pain still persists, will consider PT. [id number] MD Leonila Cortez (Peds) [address] [place] [address] 10/22/2014 15:15:00 10/22/2014 17:49:27 Lesion of soft tissue 503161646 Ddx includes a cyst vs. nodule vs. benign soft tissue tumor . Appears to be self-limte d. Will cont. to monitor. Pt. to notify if increases in size, becomes tender. If persists or gets larger, can refer to dermatolog y. [id number] MD Leonila Cortez (Peds) [address] [place] [address] 11/13/2014 15:23:42 11/13/2014 18:24:29 Well child [id number] Growth wnl. Anticipato ry guidance given. Menveo and Gardasil given. Obesity 900801190 BMI greater than 95th %. Reviewed diet changes including reducing portions, increasing vegetables and fruits and increasing water intake, and getting 30 minutes of exercise at least 4 times a week. Will check screening labs. [id number] MD Leonila Cortez (Peds) [address] [place] [address] 11/26/2014 14:48:36 11/27/2014 10:57:05 Upper respiratory infection 34397885 Supportive care. Notify if sx. last more than 10 days or if pt. develops fever. Pharyngitis 694956114 Ra pid strep negative. Likely viral etiology. Symptomati c care. [id number] [facility] (Peds) [address] [place] [address] 12/07/2014 11:17:14 12/07/2014 12:32:48 Pharyngitis 407137507 possibly allergic in nature. Start Flonase and OTc loratadine . [id number] VEE Evanshalto (Peds) [address] [place] [address] 12/18/2014 14:07:17 12/18/2014 18:17:38 Acute sinusitis 67750996 Saline spray and augmentin. F/u in 2 weeks for recheck. Lesion of soft tissue 798352172 Ddx includes a cyst vs. nodule vs. benign soft tissue tumor . Appears to be self-limte d. Appears to have increased in size slightly and tender on deep palpation. Feels like a linear cord under L skin on upper L back. If persists or gets larger, can refer to dermatolog y. Acute non- suppurative serous otitis media 847851325 Bilateral. R tm may have a perforatio n, difficult to assess due to cerumen. Recheck in 2 weeks [id number] [facility] [address] [place] [address] 01/03/2015 14:38:15 01/03/2015 18:17:50 Follow-up encounter [id number] Resolved sinusitis. No TM perforatio n seen. [id number] [facility] [address] [place] [address] 01/24/2015 14:38:06 01/24/2015 18:14:14 Pneumonia 333010161 J18.9 Improving. Pt. completed Zithromax and received rocephin in ER. Active or passive immunization 992473337 Z23 Flu shot and second gardasil given. Wheezing 94630946 R06.2 No past dx. for asthma. Ddx includes acute bronchitis vs. asthma. Albuterol inhaler prescribed in case of bronchospa sm. [id number] [facility] [address] [place] [address] 12/10/2015 14:13:45 12/10/2015 18:15:02 Well child 963268367 Z00.129 Growth wnl. Anticipato ry guidance given. Gardasil given. Will continue to monitor subcutaneo us lesion on upper back, consider referral to surgery if lesion increases in size or becomes painful. Overweight 370311768 E66 .3 Screening labs ordered. BMI at 97nth%. Discussed diet changes including reducing portion sizes, increase fruit and vegetable intake, drink 6 glasses water/day, and continue being active with sports. Acne 45523110 L70.[address] on tretinoin for face, and BP 10 % for chest and back. [id number] MD Leonila Cortez (Peds) [address] [place] [address] 01/28/2016 11:24:57 01/28/2016 17:21:58 Venereal disease screening 198992125 Z11.3 Discussed abstinence . Recommende d appt. with SP[facility]ING B[facility] PERSON to discuss control. Will check for STDs. Pt. receiving counseling . Encouraged open communicat ion between mom and patient. Active or passive immunization 055003659 Z23 [id number] MD Mark Gore ([place] [address]) [address] [facility] [place] [address] 06/22/2016 15:25:41 06/23/2016 08:41:58 Contraception care management 380537726 Z30.9 - Discussed contracept zackary options - Pt. desires IUD, will order Kyleena - Will return for insertion once device arrives [id number] MD Mark Gore ([place] [address]) [address] [facility] [place] [address] 07/01/2016 16:11:17 07/02/2016 09:39:05 Insertion of intrauterine contraceptive device 27528980 Z30.430 - RTC in 4 weeks for a string check [id number] ELLIE Gomez (Peds) [address] [place] [address] 07/09/2016 15:52:44 07/15/2016 15:32:05 Acute otitis media 6190176 H65.03 supportive care, keep nose clean , use saline spray q 1-2 hr, no sweet drink, limit juice to 4 oz/d, more water, milk only 2 cup/d, contact if not better after few days Acute uppe r respiratory infection 34979568 J06.9 keep nose cleaned, fever controlled with tylenol alternate with ibuprofen if temp >100 only, no cough med, warm fluid to drink, no juice, warm milk 15 oz/d advise to contact if worsening or febrile >100f, good hand hygiene Depression screening 171 118630 Z13.89 PHQ9 = 10/20, pt on prozac 10mg discuss about sleep 8-10 hrs, exercise 1 hr daily, vit D 1000 unit, milk 2 cups/d, mom to call and get apt for counsellin g at [employer] or school, encourage talking, eat as family at meals [id number] Humza Reyna MD [facility] ([place] [address]) [address] [facility] [address] [place] [address] [address] 08/03/2016 16:09:02 08/04/2016 08:48:07 Subcutaneous contraceptive implant present 817919733 Z97.8 Removal of intrauterine device 40590903 Z30.432 Implantati on of subcutaneous contraceptive 976918474 Z30.9 [id number] MD Leonila Cortez (Peds) [address] [facility] [address] 08/11/2016 16:23:35 08/14/2016 14:00:32 Dermoid cyst of skin 624691953 D23.9 Ddx. includes sebaceous cyst. Will refer to plastic surgeon for further evaluation . Acne 07929513 L70.[address]. Will place on tretinoin for face, and BP 10 % for chest and back. Increased body mass index 43406530 E66.9 [id number] Burak Keen (Peds) [address] [facility] [place] [address] 08/12/2016 16:04:28 08/14/2016 16:08:54 Acute urticaria 089359709 L50.9 supportive care, good hygiene Venereal d isease screening 065699644 Z11.3 pt has IUD [id number] Poli Keen (Peds) [address] [facility] [place] [address] 12/11/2016 09:57:38 12/14/2016 11:17:04 Well child 362616443 Z00.129 Cellulitis of thigh 7705 4009 L03.593 [id number] MD Leonila Cortez (Peds) [address] [place] [address] 09/30/2017 13:45:48 10/05/2017 13:37:04 Hand wart 096276529 B07.8 Cryotherap y done on lesion in office. In a few days resume OTC wart remover liquid qhs. Apply vaseline on healthy tissue around the wart when applying the acid. Place bandaid on lesion overnight, rinse in am and file down with nail file. F/u in 2-3 weeks if no improvemen t. Lesion of soft tissue 23 7494823 M79.9 Pt. seen by plastic surgeon at [facility], Dr. Erin raya 08/2016. Surgery scheduled, but then cancelled. Gave number to Dad to reschedule . Tinea pedis 3963717 B35. 3 Foot care reviewed. Will prescribe topical antifungal and anti-bacte rial. F/u in 2 weeks if no improvemen t. Increased body mass index 14467359 E66.9 BMI at 97 %. Reviewed 7-5-2-1-0 message. Screening labs ordered. Diet education 01516091 Z71.3 Exercises education, guidance, and counseling 738076336 Z71.82 [id number] Poli Keen (Peds) [address] [place] [address] 12/16/2017 15:58:52 12/17/2017 13:09:12 Well child 579713993 Z00.438 [id number] MD Leonila Cortez (Peds) [address] [place] [address] 12/28/2017 11:38:49 12/29/2017 15:38:15 Adjustment disorder with depressed mood 13280240 F43.21 PHQ-9 score 8 today. Pt. denies [...] line immediatel y if develops suicidal thoughts. [id number] MD Leonila Cortez (Peds) [address] [place] [address] 04/12/2018 11:15:00 04/13/2018 14:19:15 Adjustment disorder with depressed mood 09761343 F43.21 Pt. denies having any suicidal ideation [...] suicidal thoughts. Administra tion of influenza vaccine 11208618 Z23 Increased body mass index 25943755 E66.9 BMI at 97 %. Reviewed 5-2-1-0 message. Screening labs done in past. [id number] Humza Reyna MD Mark 14 OB [address] [facility] [address] [place] [address] 06/08/2018 15:03:14 06/09/2018 15:02:24 High risk sexual behavior 122159912 Z72.51 [id number] MD Leonila Cortez (Peds) [address] [place] [address] 10/17/2018 16:25:01 10/18/2018 13:00:59 Well child 994140042 Z00.129 Growth wnl. Anticipato ry guidance given. Increased body mass index 90199431 E66.9 BMI at 98 %. Reviewed 5-2-1-0 message. Screening labs done in past. Diet education 69928321 Z71.3 Exercises education, guidance, and counseling 710786465 Z71.82 Allergic rhinitis 406908 04 J30.9 Refill on zyrtec given. Depressive disorder 3548 9007 F32.9 Pt. admitted to [facility] 09/07-. Pt admitted for suicidal ideation. Pt. discharged on Lexapro. Pt. denies having any current suicidal or homicidal ideation. Pt. is not receiving any counseling . Will refill Lexapro. [id number] Humza Reyna MD Mark 14 OB [address] [facility] [address] [place] [address] 03/27/2020 13:46:50 03/28/2020 13:29:47 Removal of subcutaneous contraceptive done 2143034535 45093 Z98.890 Implantati on of subcutaneous contraceptive 468103159 Z30.9 [id number] Denise Manjarrez APN, SUBGRADE ROLLER OPERATOR-C Leonila (Adult Med) [address] [place] [address] 09/23/2021 13:58:41 09/23/2021 19:19:37 Adult health examination 696328309 Z00.01 Encouraged routine DENTAL SPECIALIST, vision, dental exams, well balanced diet. Contact dermatitis 65194 004 L25.9 wide spread patches of a macular erythemato us rash to left cheek, pete arms, posterior trunk, no weeping or discharge, dwp topical cream and po steroids as well as testing, may need referral to mold maker plastic molds Obesity 171569686 E66.9 advised low fat, low cholestero l diet, regular exercise and weight reduction. Tobacco user 001590853 Z 72.0 Smoking cessation encouraged . [id number] BRISEIDA Alvarenga 14 OB [address] [facility] [address] [place] [address] 06/23/2022 13:50:50 06/24/2022 11:50:23 Removal of subcutaneous contraceptive done 2613089543 19100 Z98.890 Discussed all options. Pt opts for removal. informed consent obtained and implant removed. PT educated on site care and notified when to call office. High risk sexual behavior 737050682 Z72.51 urine collected and sent to lab. Counseled on safe sex, condom use and STD precaution s discussed screening completed per patient's request Childhood obesity [id number] E66.8 Pt educated on risks and importance of lifestyle modificati ons. Pt reports will continue to follow up with PCP. Family messi nning surveillance [id number] Z30.09 Discussed contracept ion methods. Patient not interested in any methods other than condoms at this time. Patient aware of her increased risk for unplanned . Patient advised to do 400 mcg folic acid supplement to help prevent against NTD if unplanned occurs [id number] Denise Manjarrez APN, NIMESH [facility] (Adult Med) [address] [place] [address] 03/22/2023 12:02:23 03/23/2023 14:40:22 Paresthesia of bilateral hands [id number] R20.2 advised night splints, naproxen, exercisesw ill try conservati ve mgmt for 8 weeks then if not improved, will order nerve studies Obesity 604049842 E66.9 advised low fat, low cholestero l diet, regular exercise and weight reduction. Pain of ri ght elbow joint [id number] M25.521 naproxen advised, ice, stretching , reduce phone use Pain of le ft elbow joint [id number] 2362854 M25.522 naproxen advised, ice, stretching , reduce phone use [id number] Denise Manjarrez APN, FNP-C [place] (Adult Med) [address] [place] [phone] 05/27/2023 12:03:24 05/31/2023 12:46:03 Paresthesia of bilateral hands [id number] R20.2 advised night splints, naproxen, exercisesw ill try conservati ve mgmt for 8 weeks then if not improved, will order nerve studies Obesity 482856365 E66.9 advised low fat, low cholestero l diet, regular exercise and weight reduction. Smoker 33159314 F17.200 Smoking cessation encouraged . Depressive disorder [id number] F32.A hx of depression also recovering addict-met h, still uses a few times a yeardeclin es treatment options Superficia l folliculitis [id number] L73.9 inflamed and open spot on bikini line, no drainagest art abxhygeine advised [id number] TAHIRA Walker [place] 14 OB [address] [facility] [address] [place] [phone] 05/17/2024 10:36:19 05/18/2024 09:30:54 Positive screening for depression on PHQ-9 (Patient Health Questionnaire 9) [id number] 03516 Z13.31 Denies thoughts of self harm or harming others. Pt instructed to call 911 if depression worsens or go to ED. Obesity [id number] E66.9 Discussed diet and weight loss. Discussed making healthier food choices and increasing exercise. Discussed going to a radiological technologist. Smoker [id number] F17.200 smoking cessation informatio n give. pt understand s the risk factors associated with smoking including heart disease, blood clots, stroke and increase risks for cancers. Menorrhagia [id number] N9 2.0 Will order pelvic ultrasound . [...] 2020 (MEDICAID REPLACEMENT - HMO) Alie Hightower [id number] Alie Hubernd 06/23/2022 1 [employer] [place] ON [place] AFTER 2020 (MEDICAID REPLACEMENT - HMO) Alie Hightower [id number] Alie Gallagheregand 03/22/2023 1 [employer] [place] 2020 (MEDICAID REPLACEMENT - HMO) Alie Hightower [id number] Alie Butler Campblel 05/27/2023 1 [employer] [place] (MEDICAID REPLACEMENT - HMO) Alie Hightower [id number] Alie Hightower Notes Date Note Type Note [...] Denise Manjarrez APN, FNP-C Attn: [address] [place], [place], [address] [place] [address], [facility] 09/23/2021 15:08:22 06/23/2022 text/html Pt is here for nexplanon removal. Pt denies issues with nexplanon but no longer wants implant. pt denies any complaints today. CAMILLE AlvarengaC Attn: [address] [place], [place], [address] [place] [address], [facility] 06/23/2022 14:51:50 03/22/2023 text/html Burning sensatio n from elbow to fingers. On and off pain started over a year, happening more frequently. 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 Pt states one of her stretch sid under her stomach looks infected- states green pus has came out of it. Denise Manjarrez APN, FNP-C Attn: [address] [place], [place], [address] [place] [address], [facility] 05/27/2023 12:33:01 05/17/2024 text/html [...] to ttc- hx obesity, smoker Yenifer Jones, [facility]- Attn: [address] [place], [address], [facility] 05/17/2024 11:38:35 OBGyn Episode No OBEpisode recorded.
--- OUTSIDE RECORDS SUMMARY | 2024-08-22 13:34 | XMS_ITS | Clinical Summary ---
Author Organization [facility] Address [address] [place] [address] Care Team Providers Care Certified Pest Control Technician Name Role Phone Jeanette Webster MD Primary Care Provider Source Comments [facility],non-owned Affiliates and Associated Physician Practices is amultiple site organization consisting of ambulatory clinics and hospital sitesin [place], [place], [place] and [place]. This disclosure is being madepursuant to the Care Everywhere program and may not contain all information available regarding this patient. Last updated 18.[facility] Biodesy Allergies No known active allergies Medications * Be aware that medications may not be up to date on this document. Alwaysverify current medications with the patient. Other Active acetaminophen (TYLENOL) 325 MG tablet Take 2 tablets by mouth every 6 hours as needed for Pain Maximum allowable Acetaminophen amount = 4 Grams (4000 mg) / 24 hours. 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 Legal Sex Female 1:57 PM CDT Gender Identity Female 03/16/2024 3:38 PM 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 Sexual Orientation Something else 03/16/2024 3: 38 PM 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 Last Filed Vital Signs Vital Sign Reading [...] SCREENING 2019 MENINGOCOCCAL (Group B) VACC INE SHARED DECISION-MAKING (1 of 2 - Standard) 2019 HEPATITIS C SCREENING 08/20/2021 DTAP/TDAP/TD VACCINES (1 - Tdap) 08/24/2022 HEPATITIS B VACCINE (1 of 3 - 19+ 3-dose series) 08/24/2022 COVID-19 VACCINE (2023-2 5 season) 2023 DEPRESSION SCREENING 04/26/2024 INFLUENZA VACCINE (Season Ended) 2024 ZOSTER VACCINE (1 of 2) 08/24/2053 HIB VACCINE Aged Out No longer eligi ble based on patient's age to complete this topic MENINGOCOCCAL GROUPS A/C/Y/W VACCINE Aged Out No longer eligible b ased on patient's age to complete this topic PNEUMOCOCCAL VACCINE Aged Out No long er eligible based on patient's age to complete this topic Insurance [employer] PLAN MEDICAID - [place] [employer] PLAN MEDICAID - OUT OF STATE Care Teams Certified Pest Control Technician Relationship Specialty Start Date End Date Jeanette Webster MD [address] [place] [id number] PCP - General Pediatrics 08/24/16
== END 2024-08-22 13:30 | disposition home or self-care (01) ==
PROVIDERS: Emergency Provider Nurse Practitioner Family; PCP Nurse Practitioner Family
DX: J32.9 Chronic sinusitis, unspecified (principal); F17.210 Nicotine dependence, cigarettes, uncomplicated; Z20.822 Contact with and (suspected) exposure to COVID-19
CPT/HCPCS: 87426; 87804; 99213; G0463

== ENCOUNTER 2025-04-03 10:48 | Emergency (ER) | payer BC, SELFPAY ==
--- NOTE | ~2025-04-03 | XR_ITS ---
Examination: XR abdomen/kub 1V Clinical History: Abdominal pain, L flank pain, vomiting Comparison: CT abdomen and pelvis 11/11/2023 Technique: 2 views supine frontal abdomen Findings: Lung bases clear. Scattered colonic gas and stool, moderate stool volume. Small bowel loops not well seen. Air-fluid levels and free air cannot be characterized on supine projection. No abnormal abdominal calcification. No acute bony abnormality. IMPRESSION: 1. No acute abnormality. Reviewed, dictated and finalized at location R. TARY PAY CLERK IMPRESSION: 1. No acute abnormality.
[2025-04-03 10:54] VITALS: BP 141/96; PULSE 92; RESP 20; TEMP 36.6; O2SAT 99
[2025-04-03] MEDS: ONDANSETRON HCL ODT 4 MG TABLET SUBLINGUAL (11:00)
--- NOTE | 2025-04-03 11:02 | ED_ITS ---
HPI - General Adult General Chief complaint: Abdominal Pain Stated complaint: trouble breathing/tight in stomach/back Time Seen by Provider: 04/03/25 11:18 Source: patient Mode of arrival: ambulatory Limitations: no limitations History of Present Illness HPI narrative: 19-year-old female presents with concern of for 3 day history of upper back pain, upper abdominal pain, vomiting, runny nose, stuffy nose, cough, fever, body aches, chills, sweats. She reports she has not had a bowel movement in about 2 days. She reports she is trying to eat but it makes her vomit. She reports she is not having any dysuria, frequency, urgency. She is urinating at least once every 6 hours. She takes naproxen for normal back pain, she has not taken any other medicines for her symptoms MD complaint: Nausea vomiting Related Data Home Medications ?Medication ?Instructions ?Recorded ?Confirmed ?Last Taken ?Type drospirenone (contraceptive) 4 mg 04/03/25 Unknown H istory (28) tablet (Slynd) naproxen 250 mg tablet mg 04/03/25 Unknown History naproxen 500 mg tablet mg 04/03/25 Unknown History tizanidine 2 mg tablet mg 04/03/25 Unknown History Allergies Allergy/AdvReac Type Severity Reaction Status Date / Time sulfamethoxazole (From Allergy Intermediate Dizziness Verified 04/03/25 10:58 Bactrim) trimethoprim (From Bactrim) Allergy Intermediate Dizziness Verified 04/03/25 10:58 amphetamine (From Adderall) Allergy Rash Verified 04/03/25 10:58 dextroamphetamine (From Allergy Rash Verified 04/03/25 10:58 Adderall) Review of Systems Review of Systems: CONSTITUTIONAL: Reports malaise, chills, sweats, fever. EYES: Denies visual changes, redness, or discharge. ENT: Reports rhinorrhea, congestion, otalgia or sore throat. CARDIOVASCULAR: Denies chest pain, palpitations, or edema. RESPIRATORY: Reports cough. Denies dyspnea. GASTROINTESTINAL: Reports upper epigastric abdominal pain, nausea, vomiting. Denies diarrhea, bloody, or mucous stools. GENITOURINARY: Denies dysuria, urgency, frequency or hematuria. SKIN: Denies rash or itching. MUSCULOSKELETAL: Reports generalized low back pain at baseline, reports new left flank back pain, myalgia. NEUROLOGIC: Denies numbness, weakness, or headache. PSYCHIATRIC: Denies anxiety or depression. All systems reviewed & are unremarkable except as noted in HPI and below PMFSH Past Medical History Medical History Epidermoid cyst of skin of back Surgical History Surgical History No pertinent past surgical history Family History Family History Mother Family history non-contributory Social History Social History Smoking packs per day: 0.5 Smoking cigarettes per day: 10.0 Years smoked: 9 Smoking pack-years: 4.50 Smoking status: Current every day smoker Substance use: current Substance use type: methamphetamine Gender identity (if verbalized by the patient): Female Sexual Orientation (if Verbalized by the Patient): Straight or Heterosexual Spiritual care concerns: No Comments At time of signature, agree with nursing past medical, surgical, social and family history. There is no relevant family history pertinent to the presenting complaint Exam Narrative: GENERAL: Nontoxic-appearing, well-nourished, and in no acute distress. HEAD: Normocephalic, atraumatic. EYES: PERRLA, sclera clear, and EOMI. No nystagmus. ENT: Nares clear, turbinates pink, no rhinorrhea or epistaxis. Mucous membranes moist. TM pearly balderas with dull light reflex bilaterally; no tragal tenderness. Oropharynx without erythema or lesions. Tonsils not enlarged and without exudate. NECK: Supple. CHEST: No respiratory distress. Clear to auscultation. No bony deformities, no asymmetry. Speaks in full sentences. HEART: Regular rate and rhythm. No murmur heard. Normal peripheral pulses. ABDOMEN: Soft, epigastric tenderness, obese nondistended, normal active bowel sounds, no palpable masses. EXTREMITIES: Normal range of motion. No edema. Normal strength and sensation. SKIN: Warm, dry, no visible rash. NEURO: Alert and oriented x3. No focal deficits. PSYCH: Normal mood and affect Course Course Emergency Course: I discussed patient's test results come possible differential diagnosis, offered transfer to emergency room for further evaluation. Patient is choosing at this time did not go to the emergency room and be discharged with a prescription for Zofran. She understands reasons to go the emergency room if symptoms worsen. Patient is aware of, understands and agrees to treatment plan. Anticipatory guidance given. Patient agrees to follow-up as directed and is aware of reasons to seek care at the emergency department. Portions of this record may have been created with voice recognition software Level of Care: [facility] Visit Vital Signs Vital signs: Vital Signs Temperature 97.9 F 04/03/25 10:54 Pulse Rate 92 04/03/25 10:54 Respiratory Rate 20 04/03/25 10:54 Blood Pressure 141/96 H 04/03/25 10:54 Pulse Oximetry 99 04/03/25 10:54 Oxygen Delivery Room Air 04/03/25 10:54 Temperature 97.9 F 04/03/25 10:54 Pulse Rate 92 04/03/25 10:54 Respiratory Rate 20 04/03/25 10:54 Blood Pressure 141/96 H 04/03/25 10:54 Pulse Oximetry 99 04/03/25 10:54 Oxygen Delivery Room Air 04/03/25 10:54 MDM Differential Diagnosis Differential Diagnosis: I evaluated this patient in the [facility]. History is obtained from patient who is an independent historian and physical exam was performed.? Available medical records were reviewed. ? Exam findings and relevant testing show no acute concerns or changes; patient is non-toxic appearing and is in no distress. ? Differential diagnosis and treatment plan were discussed with the patient. Patient agrees with discussion and after shared medical decision making agrees with plan of care. All questions were answered to the patient's satisfaction. Patient is appropriate for outpatient treatment and follow-up. Discharge Plan Discharge Clinical Impression: Nausea and vomiting Patient Disposition: Home Condition: Stable Instructions: Acute Nausea and Vomiting (ED) Additional Instructions: Please follow-up with your primary care doctor for further evaluation. Take Zofran as prescribed for nausea and vomiting Stay hydrated. Take small sips of fluid containing electrolytes frequently. You should go to the hospital if you experience return of persistent nausea and vomiting that does not resolve and does not allow you to tolerate any food or fluids, persistent fevers for greater than 2-3 more days, increasing abdominal p ain that persists despite medications, persistent diarrhea, dizziness, syncope (fainting), or for any other concerns. Patient Language: Citizen Of [place] Prescriptions: New ondansetron 4 mg tablet,disintegrating 4 mg PO Q8H PRN (Reason: nausea and vomiting) Qty: 10 0RF No Action Slynd 4 mg (28) tablet tizanidine 2 mg tablet naproxen 250 mg tablet naproxen 500 mg tablet Follow-up/Referrals: [place],Denise Suazo APN [Primary Care Provider, Unknown] Stand Alone Forms: Work/School Release IP Time of Disposition: 11:58
[2025-04-03 11:35] LABS: EDUAAPPEAR Clear; EDUABILI Negative (Negative); EDUABLOOD Negative (Negative); EDUACOLOR1 Yellow; EDUAGLUCOSE Negative (Negative); EDUAKETONE Negative (Negative); EDUALEUKO Negative (Negative); EDUANITRATE Negative (Negative); EDUAPH 7.0; EDUAPROTEIN Trace (Negative); EDUASPGRAVITY 1.025; EDUAUROBILI 0.2
[2025-04-03 11:44] LABS: EDSTREPNEGPOS1 Negative (Negative)
[2025-04-03 11:45] LABS: BEDSIDEPREGUCG Negative (Negative)
[2025-04-03 11:52] LABS: EDCOVIDSCREEN Negative (Negative); EDINFLUASCREEN Negative (Negative); EDINFLUBSCREEN Negative (Negative)
== END 2025-04-03 12:03 | disposition home or self-care (01) ==
PROVIDERS: Emergency Provider Nurse Practitioner; PCP Nurse Practitioner Family
DX: R11.2 Nausea with vomiting, unspecified (principal); F17.210 Nicotine dependence, cigarettes, uncomplicated; F15.90 Other stimulant use, unspecified, uncomplicated
CPT/HCPCS: 74018; 81003; 81025; 87081; 87426; 87804; 87880; 99213; A9270; G0463